=== PATIENT | male | born 1960 | race Caucasian/White ===

== ENCOUNTER 2016-09-02 10:15 | Emergency (ER) | payer OTHER ==
[~2016-09-02] VITALS: Ht 188 cm; Wt 120.0 kg
[~2016-09-02 10:15] MED LIST: ALBI1INJ2 SQ; ATOR1TAB18 PO; EMPA1TAB3 PO; GLYB5TAB3 PO; HYDR25TA5 PO; LISI-515 PO; METF1000 PO; NOVOLOGP2 SQ; OMEG1000; PLAV75TA29 PO; VITA20003 PO
[2016-09-02 10:17] VITALS: BP 205/98; PULSE 72; RESP 20; TEMP 97.1; O2SAT 99
[2016-09-02 10:38] VITALS: RESP 18; O2SAT 99
[2016-09-02] MEDS ORDERED: SODIUM CHLORIDE 0.9% FLUSH 10 ML FLUSH IVF PRN (10:45)
[2016-09-02] MEDS ORDERED: FISHCAP4 PO (10:47)
[2016-09-02] MEDS ORDERED: INSU1INJ14 SQ (10:47)
[2016-09-02] MEDS ORDERED: LACTCAP8 PO (10:47)
[2016-09-02 11:33] LABS: AUTOMATED NEUTROPHIL # 6.6 TH/MM3 (1.8-7.7); BASOPHIL % 0.3 % (0.0-2.0); EOSINOPHIL # 0.2 TH/MM3 (0-0.4); EOSINOPHIL % 2.2 % (0.0-4.0); HEMATOCRIT 41.8 % (39.0-51.0); HEMO FLAGS DIFF FINAL; LYMPH % 15.8 % (9.0-44.0); LYMPHOCYTE # 1.4 TH/MM3 (1.0-4.8); MEAN CORPUSCULAR HEMOGLOBIN 30.2 PG (27.0-34.0); MEAN CORPUSCULAR HGB CONC 32.4 % (32.0-36.0); MONO % 6.4 % (0.0-8.0); NEUT % 75.3 % (16.0-70.0); PLATELET COUNT 185 TH/MM3 (150-450); RED BLOOD COUNT 4.49 MIL/MM3 (4.50-5.90); RED CELL DISTRIBUTION WIDTH 13.6 % (11.6-17.2); WHITE BLOOD COUNT 8.8 TH/MM3 (4.0-11.0)
--- NOTE | 2016-09-02 11:39 | RADRPT ---
EXAM DATE/TIME: 09/02/2016 11:00 [facility] COMPARISON: No previous studies available for comparison. INDICATIONS : Pain from wound on lateral margin of foot. MEDICAL HISTORY : Diabetes mellitus type II. SURGICAL HISTORY : None. ENCOUNTER: Initial ACUITY: 2 days PAIN SCORE: 5/10 LOCATION: Left foot, lateral margin. FINDINGS: Soft tissue swelling with ulceration is identified along the lateral margin of the fifth metatarsopha langeal joint. Underlying bony structures are intact. The right foot is otherwise unremarkable. There are no destructive bone changes or significant arthro matthew. Arterial calcifications noted. CONCLUSION: Soft tissue swelling with ulceration along the lateral aspect of the fifth metatarsophalangeal joint. No findings to suggest osteomyelitis. Intact bony structures. Kermit Jane MD on September 02, 2016 at 11:36 Board Certified Radiologist. This report was verified electronically.
[2016-09-02 11:56] LABS: ANION GAP 8 MEQ/L (5-15); AST (GOT) 16 U/L (15-37); BICARBONATE 20.2 MEQ/L (21.0-32.0); BLOOD UREA NITROGEN 24 MG/DL (7-18); CHLORIDE 109 MEQ/L (98-107); GLOMERULAR FILTRATION RATE 71 ML/MIN (>89); POTASSIUM 4.7 MEQ/L (3.5-5.1); SODIUM (NA) 137 MEQ/L (136-145)
[2016-09-02 11:57] LABS: ALT (GPT) 26 U/L (12-78)
[2016-09-02 12:00] LABS: ALKALINE PHOSPHATASE 77 U/L (45-117); TOTAL BILIRUBIN ADULT 0.4 MG/DL (0.2-1.0)
[2016-09-02] MEDS ORDERED: ACETAMINOPHEN/HYDROcodone 325 MG/5 MG TAB PO ONE (12:00)
[2016-09-02 12:51] VITALS: BP 172/77; PULSE 65; RESP 18; O2SAT 99
[2016-09-02] MEDS ORDERED: GADODIAMIDE PF 287 MG/ML 20 ML VIAL (for RAD MRI) IV ONE (14:26)
[2016-09-02 14:31] VITALS: RESP 18
--- NOTE | 2016-09-02 16:01 | RADRPT ---
EXAM DATE/TIME: 09/02/2016 14:00 [facility] COMPARISON: FOOT RIGHT COMPLETE ([id number]), September 02, 2016, 11:00. INDICATIONS : Infection. CONTRAST: 20 cc Omniscan (gadodiamide) IV MEDICAL HISTORY : Hypertension. Diabetes mellitus type 2. SURGICAL HISTORY : Left bka ENCOUNTER: Initial ACUITY: 1 day PAIN SCORE: 0/10 LOCATION: Right foot TECHNIQUE: Multiplanar, multisequence MRI examination was performed without contrast and after the intravenous a dministration of gadolinium. FINDINGS: There is soft tissue ulceration in the subcutaneous tissues adjacent to the fifth metatarsophala ngeal joint and the marrow appears intact. There is no evidence for osteomyelitis. Musculotendinous s tructures appear intact. CONCLUSION: No evidence of osteomyelitis. Jean Sun MD on September 02, 2016 at 15:56 Board Certified Radiologist. This report was verified electronically.
[2016-09-02] MEDS ORDERED: CLIN1CAP5 PO (16:59)
[2016-09-02] MEDS ORDERED: NORC5TAB PO (17:01)
--- NOTE | 2016-09-02 17:01 | PD ---
HPI Chief Complaint: Skin Problem Time Seen by Provider: 10:24 Travel History International Travel<30 days: No Contact w/Intl Traveler<30days: No Traveled to known affect area: No History of Present Illness HPI Patient is a 56-year-old male presents emergency Department with a right foot ulcer which she just noticed yesterday. He states he is a diabetic and lost his left foot for similar ulcer that gradually grown. He is followed by Dr. Rose seo coordinator in [facility]. Denies any fever denies any systemic symptoms such as fever nausea vomiting chest pain or shortness of breath. States that he also noticed that the redness started spreading over the past day or so over the dorsum of his right foot. PFSH Past Medical History Cancer: No Cardiovascular Problems: Yes High Cholesterol: Yes Chest Pain: No Congestive Heart Failure: No Diabetes: Yes Patient Takes Glucophage: Yes Diminished Hearing: No Endocrine: Yes Gastrointestinal Disorders: No Glaucoma: No Genitourinary: No Hepatitis: No Hiatal Hernia: No Hypertension: Yes Immune Disorder: No Musculoskeletal: No Neurologic: No Psychiatric: No Reproductive: No Respiratory: No Integumentary: Yes (WOUND ON RIGHT HEEL) Sickle Cell Disease: No Thyroid Disease: No Tetanus Vaccination: < 5 Years Past Surgical History AICD: No Eye Surgery: Yes (CATARACT SURGERY) Joint Replacement: No Pacemaker: No Other Surgery: Yes Social History Alcohol Use: Yes (OCCASSIONAL) Tobacco Use: No Substance Use: No Allergies-Medications (Allergen,Severity, Reaction): Coded Allergies: No Known Allergies (Unverified , 09/02/16) Reported Meds & Prescriptions Reported Meds & Active Scripts Active [place] (Hydrocodone-Acetaminophen) 5-325 mg Tab 1 Tab PO Q6H PRN Clindamycin (Clindamycin HCl) 150 Mg Cap 300 Mg PO Q6H 7 Days Reported Probiotic (Lactobacillus Acidophilus) 1 Cap Cap 1 Cap PO DAILY Fish Oil + D3 (Fish Oil-Cholecalciferol) 1,200-1,000 Mg-Unit Cap 1 Cap PO DAILY Tresiba Flextouch Pen Inj (Insulin Degludec Inj) 300 unit/3 ML Pen 1 Units SQ DAILY Vitamin D (Cholecalciferol) 2,000 Unit Tab Evans-3 1000 mg (Evans-3 Fatty Acids) 1 Cap Cap Metformin (Metformin HCl) 1,000 Mg Tab 1,000 Mg PO BIDPC With meals Lisinopril 20 Mg Tab 20 Mg PO DAILY Novolog Inj (Insulin Aspart) 1,000 Unit/10 Ml Vial 0 SQ DIRECTED Sliding Scale as directed. Hydrochlorothiazide 25 Mg Tab 25 Mg PO BID Glyburide 5 Mg Tab 5 Mg PO BID Take with meals at the same time each day Jardiance (Empagliflozin) 25 Mg Tab 25 Mg PO DAILY Atorvastatin (Atorvastatin Calcium) 80 Mg Tab 80 Mg PO HS Tanzeum 4-Pack Inj (Albiglutide) 50 Mg Pfpen 50 Mg SQ Q7D Review of Systems Except as stated in HPI: all other systems reviewed are Neg Physical Exam Narrative GENERAL: Well-developed well-nourished no obvious distress. Quite pleasant. SKIN: There is a right plantar foot ulcer with surrounding cellulitis on both the plantar and dorsal surface, the dorsal surface greater than the plantar surface. No obvious discharge, the ulcer appears fairly superficial but is starting to scab. Ulcerative areas approximately nickel sized. HEAD: Atraumatic. Normocephalic. EYES: Pupils equal and round. No scleral icterus. No injection or drainage. ENT: No nasal bleeding or discharge. Mucous membranes pink and moist. NECK: Trachea midline. No JVD. CARDIOVASCULAR: Regular rate and rhythm. No murmur appreciated. RESPIRATORY: No accessory muscle use. Clear to auscultation. Breath sounds equal bilaterally. GASTROINTESTINAL: Abdomen soft, non-tender, nondistended. Hepatic and splenic margins not palpable. MUSCULOSKELETAL: No obvious deformities. No clubbing. No cyanosis. No edema. BKA and prosthesis on the left. NEUROLOGICAL: Awake and alert. No obvious cranial nerve deficits. Motor grossly within normal limits. Normal speech. PSYCHIATRIC: Appropriate mood and affect; insight and judgment normal. Data Data Last Documented VS Vital Signs Date Time Temp Pulse Resp B/P Pulse Ox O2 Delivery O2 Flow Rate FiO2 09/02/16 14:31 18 09/02/16 12:51 65 172/77 99 Room Air 09/02/16 10:17 97.1 Orders Complete Blood Count With Diff (09/02/16 10:32) Comprehensive Metabolic Panel (09/02/16 10:32) Westergren Sedimentation Rate (09/02/16 10:32) C-Reactive Protein (Crp) (09/02/16 10:32) Ecg Monitoring (09/02/16 10:32) Iv Access Insert/Monitor (09/02/16 10:32) Oximetry (09/02/16 10:32) Sodium Chloride 0.9% Flush (Ns Flush) (09/02/16 10:45) Foot, Complete (Aen1efx) (09/02/16 ) Mri Foot W&W/O Contrast (09/02/16 ) Acetamin-Hydrocod 325-5 Mg ([place] 5-325 (09/02/16 12:00) Gadodiamide Pf Inj (Omniscan Pf Inj) (09/02/16 14:26) Clindamycin (Cleocin) (09/02/16 17:15) Oxycodone-Acetamin 5-325 Mg (Percocet (09/02/16 17:45) Labs Laboratory Tests Test 09/02/16 10:45 White Blood Count 8.8 TH/MM3 Red Blood Count 4.49 MIL/MM3 Hemoglobin 13.5 GM/DL Hematocrit 41.8 % Mean Corpuscular Volume 93.0 FL Mean Corpuscular Hemoglobin 30.2 PG Mean Corpuscular Hemoglobin 32.4 % Concent Red Cell Distribution Width 13.6 % Platelet Count 185 TH/MM3 Mean Platelet Volume 9.4 FL Neutrophils (%) (Auto) 75.3 % Lymphocytes (%) (Auto) 15.8 % Monocytes (%) (Auto) 6.4 % Eosinophils (%) (Auto) 2.2 % Basophils (%) (Auto) 0.3 % Neutrophils # (Auto) 6.6 TH/MM3 Lymphocytes # (Auto) 1.4 TH/MM3 Monocytes # (Auto) 0.6 TH/MM3 Eosinophils # (Auto) 0.2 TH/MM3 Basophils # (Auto) 0.0 TH/MM3 CBC Comment DIFF FINAL Differential Comment Erythrocyte Sedimentation Rate 32 mm/hr Sodium Level 137 MEQ/L Potassium Level 4.7 MEQ/L Chloride Level 109 MEQ/L Carbon Dioxide Level 20.2 MEQ/L Anion Gap 8 MEQ/L Blood Urea Nitrogen 24 MG/DL Creatinine 1.07 MG/DL Estimat Glomerular Filtration 71 ML/MIN Rate Random Glucose 190 MG/DL Calcium Level 8.5 MG/DL Total Bilirubin 0.4 MG/DL Aspartate Amino Transf 16 U/L (AST/SGOT) Alanine Aminotransferase 26 U/L (ALT/SGPT) Alkaline Phosphatase 77 U/L C-Reactive Protein 2.90 MG/DL Total Protein 7.2 GM/DL Albumin 3.4 GM/DL MDM Medical Decision Making Medical Screen Exam Complete: Yes Emergency Medical Condition: Yes Differential Diagnosis Diabetic foot ulcer, cellulitis, osteomyelitis Narrative Course Patient roomed in emergency department, labs show minimally elevated CRP, MRI has been ordered, shows no evidence of osteomyelitis. The patient is certainly not septic. Patient reassured and recommended antibiotics. Bactrim interacts with his blood pressure medication causing hyperkalemia, we'll place on clindamycin for now. Discussed need follow-up with Dr. Rose and return to ED criteria. Diagnosis Primary Impression: Right foot ulcer Med/Other Pt SpecificInfo: Prescription(s) given Scripts Hydrocodone-Acetaminophen ([place])5-325 mg Tab1 Tab PO Q6H PRN (PAIN) #12 TAB Ref 0 Prov:Otis Knutson MD 09/02/16 Clindamycin 150 Mg [id number] Mg PO Q6H 7 Days Ref 0 Prov:Otis Knutson MD 09/02/16 Disposition: 01 DISCHARGE HOME Condition: Stable Otis Knutson MD Sep 02, 2016 17:01
[2016-09-02] MEDS ORDERED: CLINDAMYCIN 150 MG CAP PO ONE (17:15)
[2016-09-02] MEDS ORDERED: oxyCODONE/ACETAMINOPHEN 5 MG/325 MG TAB PO ONE (17:45)
== END 2016-09-02 18:43 | disposition home or self-care (01) ==
LOC: NEPE 10:15
DX: E11.621 Type 2 diabetes mellitus with foot ulcer (principal); L03.115 Cellulitis of right lower limb; E87.5 Hyperkalemia; E78.00 Pure hypercholesterolemia, unspecified; I10 Essential (primary) hypertension; Z79.4 Long term (current) use of insulin; Z79.899 Other long term (current) drug therapy
CPT/HCPCS: 73630; 73720; 80053; 85025; 85652; 86140; 99285; A9579

== ENCOUNTER 2016-09-12 09:28 | Inpatient (IN) | payer OTHER ==
[~2016-09-12] VITALS: Ht 188 cm; Wt 121.3 kg
[~2016-09-12 09:28] MED LIST changes: +CLIN1CAP5 PO; +FISHCAP4 PO; +INSU1INJ14 SQ; +LACTCAP8 PO; +NORC5TAB PO; -PLAV75TA29 PO
[2016-09-12 09:31] VITALS: BP 234/104; PULSE 82; RESP 20; O2SAT 96
[2016-09-12 11:33] VITALS: BP 210/85; PULSE 86; RESP 18; TEMP 97.8; O2SAT 98
[2016-09-12] MEDS ORDERED: SODIUM CHLOR 0.9% 1000 ML INJ 1,000 ML IV SCH ×2 (11:41→12:32)
--- NOTE | 2016-09-12 11:44 | PD ---
HPI Chief Complaint: Pain: Acute or Chronic Time Seen by Provider: 11:45 Travel History International Travel<30 days: No Contact w/Intl Traveler<30days: No Traveled to known affect area: No History of Present Illness HPI This is a 56-year-old male with history of type 2 diabetes, peripheral vascular disease, hypertension, hyperlipidemia, who presents for evaluation of an ulcer on the right foot. Started 1-2 weeks ago. He developed an ulceration on the plantar lateral aspect of the right foot which has been painful. He was seen here for evaluation of this issue in September 02. He had an MRI of the foot which revealed no evidence of osteomyelitis. He was discharged with a prescription for clindamycin which she has been using as prescribed. He follow-up with his agency service representative Dr. Rose who started him on Cipro yesterday. He was reevaluated today by Dr. Rose and sent here for further evaluation/admission. The patient endorses pain, aching, worse with walking. Denies any fevers or chills. He has no other complaints at this time. PFSH Past Medical History Cancer: No Cardiovascular Problems: Yes High Cholesterol: Yes Chest Pain: No Congestive Heart Failure: No Diabetes: Yes Patient Takes Glucophage: Yes Diminished Hearing: No Endocrine: Yes Gastrointestinal Disorders: No Glaucoma: No Genitourinary: No Hepatitis: No Hiatal Hernia: No Hypertension: Yes Immune Disorder: No Musculoskeletal: No Neurologic: No Psychiatric: No Reproductive: No Respiratory: No Integumentary: Yes (WOUND ON RIGHT HEEL) Sickle Cell Disease: No Thyroid Disease: No Past Surgical History AICD: No Eye Surgery: Yes (CATARACT SURGERY) Joint Replacement: No Pacemaker: No Other Surgery: Yes Social History Alcohol Use: Yes (OCCASSIONAL) Tobacco Use: No Substance Use: No Allergies-Medications (Allergen,Severity, Reaction): Coded Allergies: No Known Allergies (Unverified , 09/02/16) Reported Meds & Prescriptions Reported Meds & Active Scripts Active Reported Cipro (Ciprofloxacin HCl) 500 Mg Tab 500 Mg PO BID 7 Days Probiotic (Lactobacillus Acidophilus) 1 Cap Cap 1 Cap PO DAILY Fish Oil + D3 (Fish Oil-Cholecalciferol) 1,200-1,000 Mg-Unit Cap 1 Cap PO DAILY Tresiba Flextouch Pen Inj (Insulin Degludec Inj) 300 unit/3 ML Pen 60 Units SQ DAILY Vitamin D (Cholecalciferol) 2,000 Unit Tab 2,000 Units PO DAILY Metformin (Metformin HCl) 1,000 Mg Tab 1,000 Mg PO BIDPC With meals Lisinopril 20 Mg Tab 20 Mg PO DAILY Novolog Inj (Insulin Aspart) 1,000 Unit/10 Ml Vial 0 SQ DIRECTED Sliding Scale as directed. Hydrochlorothiazide 25 Mg Tab 25 Mg PO BID Glyburide 5 Mg Tab 5 Mg PO BID Take with meals at the same time each day Jardiance (Empagliflozin) 25 Mg Tab 25 Mg PO DAILY Atorvastatin (Atorvastatin Calcium) 80 Mg Tab 80 Mg PO HS Tanzeum 4-Pack Inj (Albiglutide) 50 Mg Pfpen 50 Mg SQ Q7D Review of Systems Except as stated in HPI: all other systems reviewed are Neg Physical Exam Narrative GENERAL: Well-developed well-nourished male in no acute distress SKIN: Warm and dry. Examination of the right foot reveals a 3-4 cm circular ulceration on the lateral plantar aspect of the right foot. There is some surrounding erythema. There is no foul-smelling drainage or proximal streaking. HEAD: Atraumatic. Normocephalic. EYES: Pupils equal and round. No scleral icterus. No injection or drainage. ENT: No nasal bleeding or discharge. Mucous membranes pink and moist. NECK: Trachea midline. No JVD. CARDIOVASCULAR: Regular rate and rhythm. No murmur appreciated. RESPIRATORY: No accessory muscle use. Clear to auscultation. Breath sounds equal bilaterally. GASTROINTESTINAL: Abdomen soft, non-tender, nondistended. Hepatic and splenic margins not palpable. MUSCULOSKELETAL: Skin as noted above. There is no lower extremity edema. Left leg indication. Extremities: The right dorsalis pulses faintly palpable. The dorsalis pedis and posterior tibial pulses are easily dopplerable. The right foot is warm. There is no inguinal lymphadenopathy. NEUROLOGICAL: Awake and alert. No obvious cranial nerve deficits. Motor grossly within normal limits. Normal speech. PSYCHIATRIC: Appropriate mood and affect; insight and judgment normal. Data Data Last Documented VS Vital Signs Date Time Temp Pulse Resp B/P Pulse Ox O2 Delivery O2 Flow Rate FiO2 09/12/16 12:10 72 18 169/76 98 Room Air 09/12/16 11:33 97.8 Orders Complete Blood Count With Diff (09/12/16 11:41) Comprehensive Metabolic Panel (09/12/16 11:41) Lactic Acid Sepsis Protocol (09/12/16 11:41) Blood Culture (09/12/16 11:41) Wound Culture And Gram Stain (09/12/16 11:41) Blood Glucose (09/12/16 11:41) Ecg Monitoring (09/12/16 11:41) Iv Access Insert/Monitor (09/12/16 11:41) Oximetry (09/12/16 11:41) Oxygen Administration (09/12/16 11:41) Sodium Chlor 0.9% 1000 Ml Inj (Ns 1000 M (09/12/16 11:41) Labetalol Inj (Trandate Inj) (09/12/16 11:45) Westergren Sedimentation Rate (09/12/16 11:50) C-Reactive Protein (Crp) (09/12/16 11:50) Ceftriaxone Inj (Rocephin Inj) (09/12/16 12:15) Morphine Inj (Morphine Inj) (09/12/16 12:15) Ondansetron Inj (Zofran Inj) (09/12/16 12:15) Sodium Chlor 0.9% 1000 Ml Inj (Ns 1000 M (09/12/16 12:32) Mri Foot W&W/O Contrast (09/12/16 ) Admit Order (Ed Use Only) (09/12/16 13:00) Consult Vascular Surgery (09/12/16 ) Labs Laboratory Tests Test 09/12/16 11:45 White Blood Count 12.0 TH/MM3 Red Blood Count 4.66 MIL/MM3 Hemoglobin 14.0 GM/DL Hematocrit 42.9 % Mean Corpuscular Volume 91.9 FL Mean Corpuscular Hemoglobin 29.9 PG Mean Corpuscular Hemoglobin 32.6 % Concent Red Cell Distribution Width 13.5 % Platelet Count 276 TH/MM3 Mean Platelet Volume 8.8 FL Neutrophils (%) (Auto) 77.1 % Lymphocytes (%) (Auto) 14.8 % Monocytes (%) (Auto) 6.5 % Eosinophils (%) (Auto) 1.2 % Basophils (%) (Auto) 0.4 % Neutrophils # (Auto) 9.2 TH/MM3 Lymphocytes # (Auto) 1.8 TH/MM3 Monocytes # (Auto) 0.8 TH/MM3 Eosinophils # (Auto) 0.1 TH/MM3 Basophils # (Auto) 0.1 TH/MM3 CBC Comment DIFF FINAL Differential Comment Sodium Level 134 MEQ/L Potassium Level 5.2 MEQ/L Chloride Level 104 MEQ/L Carbon Dioxide Level 21.5 MEQ/L Anion Gap 9 MEQ/L Blood Urea Nitrogen 31 MG/DL Creatinine 1.23 MG/DL Estimat Glomerular Filtration 61 ML/MIN Rate Random Glucose 116 MG/DL Lactic Acid Level 2.1 mmol/L Calcium Level 9.8 MG/DL Total Bilirubin 0.4 MG/DL Aspartate Amino Transf 19 U/L (AST/SGOT) Alanine Aminotransferase 25 U/L (ALT/SGPT) Alkaline Phosphatase 82 U/L C-Reactive Protein 4.40 MG/DL Total Protein 8.0 GM/DL Albumin 3.5 GM/DL [facility] Medical Decision Making Medical Screen Exam Complete: Yes Emergency Medical Condition: Yes Medical Record Reviewed: Yes Differential Diagnosis Diabetic foot ulcer, peripheral vascular disease, cellulitis, osteomyelitis, sepsis Narrative Course This is a 56 year old male history of peripheral vascular disease, diabetes who developed a foot ulcer which has worsened despite outpatient oral antibiotic therapy. He had an MRI of the right foot performed on September 02 which was negative for osteomyelitis. He has followed up with Dr. Rose who referred him here today for admission. On examination the patient has a foot ulcer on the right foot with some surrounding cellulitic changes. He has a faintly palpable dorsalis pedis pulse as well as a dopplerable posterior tibial pulse. I discussed with Dr. Rose who would like the patient to be admitted for IV antibiotic therapy. He recommends a repeat MRI of the foot as well as vascular surgery consultspecifically he discussed with Dr. Cano who The patient is known to and he will be consulting. Dr. Rose will also faxed over the culture and sensitivity report. He would like Dr. Grimes to be consulting on the patient as well. Plan is for basic lab work, ECG monitoring, blood cultures, repeat wound culture will be performed. His blood pressure was initially quite elevated in triage but improved to 163 systolic. Initially labetalol was ordered but this has been held because of the spontaneous improvement in blood pressure. The culture and sensitivity report reveals Enterobacter cloecae susceptible to ciprofloxacin, ceftriaxone, ertapenem, gentamicin, imipenem, levofloxacin, piperacillin, tetracycline, tobramycin, trimethoprim/sulfa and resistant to Augmentin, cefazolin, cefuroxime. Diagnosis Primary Impression: Right foot ulcer Qualified Code: L97.519 - Right foot ulcer, with unspecified severity Additional Impression: Peripheral vascular disease Admitting Information Admitting Physician Requests: Admit Jorge Arroyo Sep 12, 2016 11:44
[2016-09-12] MEDS ORDERED: LABETALOL HCL 100 MG/20 ML VIAL IV PUSH ONE (11:45)
[2016-09-12 12:10] VITALS: BP 169/76; PULSE 72; RESP 18; O2SAT 98
[2016-09-12 12:12] LABS: AUTOMATED NEUTROPHIL # 9.2 TH/MM3 (1.8-7.7); BASOPHIL # 0.1 TH/MM3 (0-0.2); BASOPHIL % 0.4 % (0.0-2.0); EOSINOPHIL # 0.1 TH/MM3 (0-0.4); EOSINOPHIL % 1.2 % (0.0-4.0); HEMATOCRIT 42.9 % (39.0-51.0); HEMO FLAGS DIFF FINAL; LYMPH % 14.8 % (9.0-44.0); LYMPHOCYTE # 1.8 TH/MM3 (1.0-4.8); MEAN CELL VOLUME 91.9 FL (80.0-100.0); MEAN CORPUSCULAR HEMOGLOBIN 29.9 PG (27.0-34.0); MEAN CORPUSCULAR HGB CONC 32.6 % (32.0-36.0); MONO % 6.5 % (0.0-8.0); NEUT % 77.1 % (16.0-70.0); PLATELET COUNT 276 TH/MM3 (150-450); RED BLOOD COUNT 4.66 MIL/MM3 (4.50-5.90); RED CELL DISTRIBUTION WIDTH 13.5 % (11.6-17.2)
[2016-09-12] MEDS ORDERED: MORPHINE SULFATE 4 MG/ML INJ IV PUSH ONE (12:15)
[2016-09-12] MEDS ORDERED: ONDANSETRON HCL 4 MG/2 ML VIAL IV PUSH ONE (12:15)
[2016-09-12] MEDS ORDERED: cefTRIAXone INJ 2,000 MG in SODIUM CHLORIDE 0.9% INJ 100 ML IV ONE (12:15)
[2016-09-12 12:28] LABS: ANION GAP 9 MEQ/L (5-15); AST (GOT) 19 U/L (15-37); BICARBONATE 21.5 MEQ/L (21.0-32.0); BLOOD UREA NITROGEN 31 MG/DL (7-18); CHLORIDE 104 MEQ/L (98-107); GLOMERULAR FILTRATION RATE 61 ML/MIN (>89); POTASSIUM 5.2 MEQ/L (3.5-5.1); SODIUM (NA) 134 MEQ/L (136-145)
[2016-09-12 12:32] LABS: ALKALINE PHOSPHATASE 82 U/L (45-117); ALT (GPT) 25 U/L (12-78); TOTAL BILIRUBIN ADULT 0.4 MG/DL (0.2-1.0)
[2016-09-12] MEDS ORDERED: CIPR-9 PO (12:33)
[2016-09-12 14:01] LABS: LACTIC ACID GHOST NOT REPORTABLE
[2016-09-12 15:00] VITALS: BP 168/88; PULSE 86; RESP 18; O2SAT 98
[2016-09-12] MEDS ORDERED: ACETAMINOPHEN/HYDROcodone 325 MG/5 MG TAB PO PRN (15:30)
[2016-09-12] MEDS ORDERED: cloNIDine HCL 0.1 MG TAB PO PRN (15:30)
[2016-09-12] MEDS ORDERED: IOHEXOL 350 MG/ML 10 ML VIAL (for RAD DIAG) IV ONE (15:34)
[2016-09-12] MEDS ORDERED: INSULIN ASPART SUPPLEMENTAL SCALE SQ SCH (16:00)
[2016-09-12] MEDS ORDERED: GADODIAMIDE PF 287 MG/ML 5 ML VIAL (for RAD MRI) IV ONE (16:22)
[2016-09-12 16:45] VITALS: BP 177/88; PULSE 75; RESP 18; TEMP 95.9; O2SAT 98
[2016-09-12] MEDS: ACETAMINOPHEN/HYDROcodone 325 MG/5 MG TAB PO PRN ×2 (16:48→21:53)
--- NOTE | 2016-09-12 16:56 | HHI.HP ---
HPI Service [facility] Hospitalists Primary Care Physician Unknown Admission Diagnosis right foot ulcer, cellulitis, peripheral vascular disease Travel History International Travel<30 Days: No Contact w/Intl Traveler <30 Da: No Traveled to Known Affected Are: No History of Present Illness Pt is 56 yo with dm 2 and left bka due to pad. About 2 weeks ago pt says he worse new shoes and developed some irritation of the the right foot lat/plantar area. Seen in ED and 09/01 mri neg for osteo and given clinda. seen by podiatry and ultimately the ulceration/ swelling progressed. podiatry swabbed the area and enterobacter grew from the cx. Sent back to ED for further evaluation today by podiatry. consultation with vascular and sent for cta runoff and mri. rocephin given in ED. Review of Systems Other worsening right foot ulcer Past Family Social History Past Medical History left bka pad lower ext. dm 2 htn cataract Reported Medications Cipro (Ciprofloxacin HCl) 500 Mg Tab 500 Mg PO BID 7 Days Probiotic (Lactobacillus Acidophilus) 1 Cap Cap 1 Cap PO DAILY Fish Oil + D3 (Fish Oil-Cholecalciferol) 1,200-1,000 Mg-Unit Cap 1 Cap PO DAILY Tresiba Flextouch Pen Inj (Insulin Degludec Inj) 300 unit/3 ML Pen 60 Units SQ DAILY Vitamin D (Cholecalciferol) 2,000 Unit Tab 2,000 Units PO DAILY Metformin (Metformin HCl) 1,000 Mg Tab 1,000 Mg PO BIDPC With meals Lisinopril 20 Mg Tab 20 Mg PO bid Novolog Inj (Insulin Aspart) 1,000 Unit/10 Ml Vial 0 SQ DIRECTED Sliding Scale as directed. Hydrochlorothiazide 25 Mg Tab 25 Mg PO daily Glyburide 5 Mg Tab 5 Mg PO BID Take with meals at the same time each day Jardiance (Empagliflozin) 25 Mg Tab 25 Mg PO DAILY Atorvastatin (Atorvastatin Calcium) 80 Mg Tab 80 Mg PO HS Tanzeum 4-Pack Inj (Albiglutide) 50 Mg Pfpen 50 Mg SQ Q7D Allergies: Coded Allergies: No Known Allergies (Unverified , 09/02/16) Family History nc Social History no sig etoh or tob Physical Exam Vital Signs heart reg lung ctda abd s/nt ext right plantar ulceration. black center with no drainage. swelling of 5th toe and mild redness. quarter size. Vital Signs Date Time Temp Pulse Resp B/P Pulse Ox O2 Delivery O2 Flow Rate FiO2 09/12/16 15:00 86 18 168/88 98 Room Air 09/12/16 12:10 72 18 169/76 98 Room Air 09/12/16 11:33 97.8 86 18 210/85 98 Room Air 09/12/16 11:33 86 18 09/12/16 09:31 82 20 234/104 96 Room Air Laboratory Laboratory Tests Test 09/12/16 09/12/16 09/12/16 11:45 13:40 14:00 White Blood Count 12.0 Red Blood Count 4.66 Hemoglobin 14.0 Hematocrit 42.9 Mean Corpuscular Volume 91.9 Mean Corpuscular Hemoglobin 29.9 Mean Corpuscular Hemoglobin 32.6 Concent Red Cell Distribution Width 13.5 Platelet Count 276 Mean Platelet Volume 8.8 Neutrophils (%) (Auto) 77.1 Lymphocytes (%) (Auto) 14.8 Monocytes (%) (Auto) 6.5 Eosinophils (%) (Auto) 1.2 Basophils (%) (Auto) 0.4 Neutrophils # (Auto) 9.2 Lymphocytes # (Auto) 1.8 Monocytes # (Auto) 0.8 Eosinophils # (Auto) 0.1 Basophils # (Auto) 0.1 CBC Comment DIFF FINAL Differential Comment Sodium Level 134 Potassium Level 5.2 Chloride Level 104 Carbon Dioxide Level 21.5 Anion Gap 9 Blood Urea Nitrogen 31 Creatinine 1.23 Estimat Glomerular Filtration 61 Rate Random Glucose 116 Lactic Acid Level 2.1 1.5 Calcium Level 9.8 Total Bilirubin 0.4 Aspartate Amino Transf 19 (AST/SGOT) Alanine Aminotransferase 25 (ALT/SGPT) Alkaline Phosphatase 82 C-Reactive Protein 4.40 Total Protein 8.0 Albumin 3.5 Erythrocyte Sedimentation Rate 63 Date/Time Procedure Status Source Growth 09/12/16 11:50 Aerobic Blood Culture Received Blood Peripheral Pending 09/12/16 11:50 Anaerobic Blood Culture Received Blood Peripheral Pending 09/12/16 11:45 Gram Stain Received Wound Foot Pending 09/12/16 11:45 Wound Culture Received Wound Foot Pending Result Diagram: 09/12/16 1145 09/12/16 1145 Assessment and Plan Problem List: (1) Right foot ulcer Status: Acute Plan: Pt is 56 yo with dm and pad. right foot ulceration/swelling plantar and right 5th digit mri foot to eval for osteo vascular consult with cta runoff ordered to eval for ischemic etiology for ulceration. cont abx per prior cx podiatry consulted for wound care. cont basal insulin and ssi. titrate as needed. (2) S/P BKA (below knee amputation) Status: Chronic (3) DM (diabetes mellitus) Status: Chronic (4) HTN (hypertension) Status: Chronic Physician Certification 2 Midnight Certification Type: Admission for Inpatient Services Order for Inpatient Services 3The services are ordered in accordance with Medicare regulations or non- Medicare payer requirements, as applicable. In the case of services not specified as inpatient-only, they are appropriately provided as inpatient services in accordance with the 2-midnight benchmark. Estimated LOS (days): 3 3 days is the estimated time the patient will need to remain in the hospital, assuming treatment plan goals are met and no additional complications. Post-Hospital Plan: Home Problem Qualifiers (1) Right foot ulcer: Qualified Code: L97.519 - Right foot ulcer, with unspecified severity Abhinav Coleman MD Sep 12, 2016 16:56
--- NOTE | 2016-09-12 17:23 | RADRPT ---
EXAM DATE/TIME: 09/12/2016 15:53 [facility] COMPARISON: MRI FOOT RIGHT W & W/O CONTRAST, September 02, 2016, 14:00. INDICATIONS : Osteomyelitis. Ulcer on lateral aspect of right foot for 10 days. CONTRAST: 24 cc Omniscan (gadodiamide) IV MEDICAL HISTORY : Hypertension. Diabetes mellitus type 2. SURGICAL HISTORY : Left BKA. ENCOUNTER: Subsequent ACUITY: 2 weeks PAIN SCORE: 3/10 LOCATION: Right foot. TECHNIQUE: Multiplanar, multisequence MRI examination was performed without contrast and after the intravenous a dministration of gadolinium. FINDINGS: There is diffuse cellulitis and soft tissue enhancement of the right fifth digit. There is also mild enhancement of the right fifth phalanges and the head of the right fifth metatarsal which raises the possibility of osteomyelitis of these bones. No deep soft tissue abscess is noted. Tagged white bl ood cell scan may be helpful for conformation of osteomyelitis if clinically indicated. CONCLUSION: Diffuse cellulitis involving the right fifth toe as well as some edema and enhancement of the head of the right fifth metatarsal as well as the right fifth phalanges raising the possibility of osteomyel itis. Tagged white blood cell scan may be helpful for confirmation of osteomyelitis if clinically in dicated. No deep soft tissue abscess is noted. Otis Pryor MD on September 12, 2016 at 17:07 Board Certified Radiologist. This report was verified electronically.
--- NOTE | 2016-09-12 17:32 | RADRPT ---
EXAM DATE/TIME: 09/12/2016 00:00 [facility] COMPARISON: No previous studies available for comparison. INDICATIONS : PVD, Right Foot Cellulitis/Ulcer TECHNIQUE: Four-cuff ankle and brachial pressures were obtained. Pulse cuff waveform tracings of the ankles were recorded, and ankle-brachial indices were calculated. PRESSURES (mmHg): Brachial (arm): Right 185 Left IV Site Ankle: Right CNO [place]ER[place]: Right CNO TBI: Right 0.55 PULSED CUFF WAVEFORMS: Demonstrate normal amplitude bilaterally. CONCLUSION: Noncompressibility of vessels at the right ankle, likely indicative of vascular calcification. Satisf actory preservation of distal waveforms suggests relatively low likelihood of severe occlusive PAD Sampson Arias MD on September 12, 2016 at 17:29 Board Certified Radiologist. This report was verified electronically.
[2016-09-12] MEDS: INSULIN ASPART SUPPLEMENTAL SCALE SQ SCH (17:41)
--- NOTE | 2016-09-12 17:48 | RADRPT ---
EXAM DATE/TIME: 09/12/2016 15:24 [facility] COMPARISON: CTA RUNOFF W 3D RECON, September 01, 2013, 12:13. [facility] ANKLE BRACHIAL INDEX, September 12, 2016, 0:00. INDICATIONS : Right foot ulcer. IV CONTRAST: 80 cc Omnipaque 350 (iohexol) IV RADIATION DOSE: 11.63 CTDIvol (mGy) MEDICAL HISTORY : Peripheral vascular disease. Hypertension. Diabetes mellitus type 2. SURGICAL HISTORY : Left leg amputation. ENCOUNTER: Initial ACUITY: 1 day PAIN SCALE: 4/10 LOCATION: Right lower extremity. TECHNIQUE: Volumetric scanning was performed using a multi-row detector CT scanner. The data was post processed with a variety of visualization algorithms including full volume maximum intensity projection, multi -planar sliding thin slab reformation, curved planar reformation, and surface rendering techniques. Using automated exposure control and adjustment of the mA and/or kV according to patient size, radiat ion dose was kept as low as reasonably achievable to obtain optimal diagnostic quality images. DICO M format image data is available electronically for review and comparison. FINDINGS: AORTA: Mild to moderate atherosclerotic calcifications of the infrarenal abdominal aorta without significant flow-limiting stenosis or aneurysm. VISCERAL ARTERIES: Patent right renal artery. Mild to moderate stenosis of the left renal artery origin secondary to mix ed plaque. Heavily calcified plaque at the origin of the celiac, SMA and TAMIA. There is resultant mode rate to severe stenosis of the celiac origin progressed from mild stenosis on prior exam. There is in terval moderate stenosis of the SMA. The TAMIA is mildly stenosed at the origin. RIGHT LEG: INFLOW: Mild stenosis of the proximal common iliac artery secondary to eccentric calcified plaque. Internal i liac artery is patent. External iliac artery is patent. Mild stenosis of the distal common femoral ar dinorah secondary to eccentric noncalcified plaque. OUTFLOW: Profunda is patent. SFA is diffusely calcified with tandem taku-cw-fkkvtqsn stenoses distally. Modera te long segment stenosis of the above-knee popliteal artery. Tandem moderate stenosis of the distal b elow-knee popliteal artery. RUNOFF: Runoff vessels are diffusely calcified which limits evaluation. There is moderate severe stenosis inv olving the origin of all 3 vessels with scattered areas of moderate to severe stenoses particularly i n the mid to distal calf and most prominently involving the posterior tibial artery. LEFT LEG: INFLOW: No iliac inflow stenosis. Eccentric mixed plaque in the distal common femoral artery at the bifurcati on with result in mild to moderate stenosis. OUTFLOW: Profunda is patent. Moderate stenosis at the SFA origin secondary to eccentric calcified plaque exten ding from the distal common femoral artery. SFA is diffusely calcified most prominently in the distal thigh with associated tandem moderate to severe stenoses. Long segment moderate to severe stenosis o f the popliteal artery at the level of the knee secondary to mixed eccentric plaque. RUNOFF: Interval below knee amputation. GENERAL FINDINGS: Visualized lung bases demonstrate mild atelectasis. Evaluation of the abdominal viscera is limited du e to early arterial phase technique. Liver, spleen, adrenal glands, and pancreas unremarkable. Gallbl adder is mildly distended with probably small gallstone and sludge. There is re demonstration of prom inent indeterminate perinephric stranding and a newly masslike prominence which is likely unchanged s steve prior exam. Kidneys otherwise demonstrate symmetrical enhancement are low there are areas of sca rring particularly in the right mid kidney. No evidence for hydronephrosis. Punctate calyceal calcifi cations are noted in the superior poles bilaterally. There is no significant free fluid or drainable fluid collection in the abdomen. Bowel appears grossly unremarkable. Bladder is distended and appears unremarkable. Prostate is grossly unremarkable. There are no abnorma l lytic or blastic bony lesions. CONCLUSION: 1. No significant iliac occlusive disease or inflow stenosis. 2. Progressive outflow disease with tandem bsal-hd-hsmsuokw stenoses of the distal SFA and popliteal arteries on the right and continued diffuse runoff disease. Patient may benefit from limb salvage out flow intervention. 3. Diffusely diseased 3 vessel runoff on the right. Interval left below-knee amputation. 4. Progressive visceral artery stenoses as above. 5. Redemonstration of prominent bilateral perinephric stranding and intermediate density masslike col lections the right skin unchanged from August [address] scan. Differential considerations include inflamm atory change/collections versus renal lymphoma although unlikely given interval stability. Herbert Das MD on September 12, 2016 at 17:18 Board Certified Radiologist. This report was verified electronically.
[2016-09-12] MEDS ORDERED: ONDANSETRON HCL 4 MG/2 ML VIAL IV PRN (18:00)
[2016-09-12] MEDS ORDERED: ACETAMINOPHEN 325 MG TAB PO PRN (18:00)
[2016-09-12 20:00] VITALS: BP 139/67; PULSE 61; RESP 18; TEMP 97.6; O2SAT 96
--- NOTE | 2016-09-12 20:16 | PD.VS.CON ---
History of Present Illness Chief Complaint: Right foot wound from work boots for a few weeks. Consult Requested by: History of Present Illness This is a 56 yr old white male with hx of PAD, diabetes and HTN with a previous left BKA for wet gangrene. 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 Past/Family/Social History Past Medical History HTN, Hyperlipidemia DM Past Surgical History left BKA Home Medications Active Scripts Hydrocodone-Acetaminophen ([place])5-325 mg Tab1 Tab PO Q6H PRN (PAIN) #12 TAB Ref 0 Prov:Otis Knutson MD 09/02/16 Reported Medications Ciprofloxacin (Cipro)500 Mg Kqz123 Mg PO BID 7 Days Ref 0 09/12/16 Lactobacillus Acidophilus (Probiotic)1 Cap Cap1 Cap PO DAILY #90 CAP Ref 0 09/02/16 Fish Oil-Cholecalciferol (Fish Oil + D3)1,200-1,000 Mg-Unit Cap1 Cap PO DAILY # 30 CAP Ref 0 09/02/16 Insulin Degludec Inj (Tresiba Flextouch Pen Inj)300 unit/3 ML Pen60 Units SQ DAILY #15 ML Ref 0 09/02/16 Cholecalciferol (Vitamin D)2,000 Unit Tab2,000 Units PO DAILY 02/17/16 Metformin 1,000 Mg Tab1,000 Mg PO BIDPC #60 TAB Ref 0 With meals 02/17/16 Lisinopril 20 Mg Tab20 Mg PO BID #30 TAB Ref 0 02/17/16 Insulin Aspart Inj (Novolog Inj)1,000 Unit/10 Ml Vial SQ DIRECTED #10 ML Ref 0 Sliding Scale as directed. 02/17/16 Hydrochlorothiazide 25 Mg Tab25 Mg PO DAILY #30 TAB 02/17/16 Glyburide 5 Mg Tab5 Mg PO BID #60 TAB Ref 0 Take with meals at the same time each day 02/17/16 Empagliflozin (Jardiance)25 Mg Tab25 Mg PO DAILY #30 TAB Ref 0 02/17/16 Atorvastatin 80 Mg Tab80 Mg PO HS #30 TAB Ref 0 02/17/16 Albiglutide 4-Pack Inj (Tanzeum 4-Pack Inj)50 Mg Pfpen50 Mg SQ Q7D #4 PEN 02/17/16 Discontinued Reported Medications [place]-3 Fatty Acids ([place]-3 1000 mg)1 Cap Cap 02/17/16 Discontinued Scripts Clindamycin 150 Mg Dea928 Mg PO Q6H 7 Days Ref 0 Prov:Otis Knutson MD 09/02/16 Coded Allergies: No Known Allergies (Unverified , 09/02/16) Physical Exam Vitals/I&O Date Time Temp Pulse Resp B/P Pulse Ox O2 Delivery O2 Flow Rate FiO2 09/12/16 17:42 18 09/12/16 16:45 95.9 75 18 177/88 98 09/12/16 15:00 86 18 168/88 98 Room Air 09/12/16 12:10 72 18 169/76 98 Room Air 09/12/16 11:33 97.8 86 18 210/85 98 Room Air 09/12/16 11:33 86 18 09/12/16 09:31 82 20 234/104 96 Room Air Neuro: A&Ox3 Neck: No carotid bruits Heart: regular Lungs: CTA bilat Abdomen: soft and non-distended. Vascular: Palpable femoral and DP on right lower extremity. Right latera 5th MT eschar with surrounding erythema. NO malodor or purulence. Laboratory Tests Test 09/12/16 09/12/16 09/12/16 09/12/16 11:45 13:40 14:00 17:32 White Blood Count 12.0 Red Blood Count 4.66 Hemoglobin 14.0 Hematocrit 42.9 Mean Corpuscular Volume 91.9 Mean Corpuscular Hemoglobin 29.9 Mean Corpuscular Hemoglobin 32.6 Concent Red Cell Distribution Width 13.5 Platelet Count 276 Mean Platelet Volume 8.8 Neutrophils (%) (Auto) 77.1 Lymphocytes (%) (Auto) 14.8 Monocytes (%) (Auto) 6.5 Eosinophils (%) (Auto) 1.2 Basophils (%) (Auto) 0.4 Neutrophils # (Auto) 9.2 Lymphocytes # (Auto) 1.8 Monocytes # (Auto) 0.8 Eosinophils # (Auto) 0.1 Basophils # (Auto) 0.1 CBC Comment DIFF FINAL Differential Comment Sodium Level 134 Potassium Level 5.2 Chloride Level 104 Carbon Dioxide Level 21.5 Anion Gap 9 Blood Urea Nitrogen 31 Creatinine 1.23 Estimat Glomerular Filtration 61 Rate Random Glucose 116 Lactic Acid Level 2.1 1.5 0.9 Calcium Level 9.8 Total Bilirubin 0.4 Aspartate Amino Transf 19 (AST/SGOT) Alanine Aminotransferase 25 (ALT/SGPT) Alkaline Phosphatase 82 C-Reactive Protein 4.40 Total Protein 8.0 Albumin 3.5 Erythrocyte Sedimentation Rate 63 Date/Time Procedure Status Source Growth 09/12/16 11:50 Aerobic Blood Culture Received Blood Peripheral Pending 09/12/16 11:50 Anaerobic Blood Culture Received Blood Peripheral Pending 09/12/16 11:45 Gram Stain Received Wound Foot Pending 09/12/16 11:45 Wound Culture Received Wound Foot Pending Last 48 hours Impressions Foot MRI 09/12/16 0000 Signed Impressions: Service Date/Time: Monday, September 12, 2016 15:53 - CONCLUSION: Diffuse cellulitis involving the right fifth toe as well as some edema and enhancement of the head of the right fifth metatarsal as well as the right fifth phalanges raising the possibility of osteomyelitis. Tagged white blood cell scan may be helpful for confirmation of osteomyelitis if clinically indicated. No deep soft tissue abscess is noted. Otis Pryor MD Aorta w/Runoff CTA 09/12/16 0000 Signed Impressions: Service Date/Time: Monday, September 12, 2016 15:24 - CONCLUSION: 1. No significant iliac occlusive disease or inflow stenosis. 2. Progressive outflow disease with tandem haqw-lj-hzgxqiwx stenoses of the distal SFA and popliteal arteries on the right and continued diffuse runoff disease. Patient may benefit from limb salvage outflow intervention. 3. Diffusely diseased 3 vessel runoff on the right. Interval left below-knee amputation. 4. Progressive visceral artery stenoses as above. 5. Redemonstration of prominent bilateral perinephric stranding and intermediate density masslike collections the right skin unchanged from August [address] scan. Differential considerations include inflammatory change/collections versus renal lymphoma although unlikely given interval stability. Herbert Das MD Assessment and Plan Assessment: (1) Right foot ulcer Status: Acute Plan 1. DFU right lower extremity. ABX IV Heel protection angiogram later this week. ABIs in the interim Blood glucose tight control Dejon Cano DO, FACS Problem Qualifiers (1) Right foot ulcer: Qualified Code: L97.519 - Right foot ulcer, with unspecified severity Dejon Cano DO Sep 12, 2016 20:16
[2016-09-12] MEDS ORDERED: INSULIN DETEMIR 100 UNITS/ML VIAL SQ SCH (21:00)
[2016-09-12] MEDS: glyBURIDE 5 MG TAB PO SCH (21:53)
[2016-09-12] MEDS: ATORVASTATIN 80 MG TAB PO SCH (21:53)
[2016-09-13] VITALS: BP 117/53; PULSE 64; RESP 18; TEMP 97.7; O2SAT 95
[2016-09-13] MEDS: ACETAMINOPHEN/HYDROcodone 325 MG/5 MG TAB PO PRN ×4 (05:14→19:23)
[2016-09-13] MEDS: glyBURIDE 5 MG TAB PO SCH ×2 (05:15→17:32)
[2016-09-13 06:17] LABS: BICARBONATE 25.3 MEQ/L (21.0-32.0); POTASSIUM 5.2 MEQ/L (3.5-5.1)
[2016-09-13] MEDS: INSULIN ASPART SUPPLEMENTAL SCALE SQ SCH ×4 (07:00→22:04)
[2016-09-13 08:00] VITALS: BP 170/79; PULSE 63; RESP 17; TEMP 96.7; O2SAT 95
[2016-09-13] MEDS: LACTOBACILLUS ACIDOPHILUS TAB PO SCH (08:01)
[2016-09-13] MEDS: HYDROCHLOROTHIAZIDE 25 MG TAB PO SCH (08:01)
[2016-09-13] MEDS: LISINOPRIL 20 MG TAB PO SCH ×2 (08:01→22:01)
[2016-09-13] MEDS ORDERED: INSULIN DETEMIR 100 UNITS/ML VIAL SQ SCH (09:00)
--- NOTE | 2016-09-13 11:32 | HHI.PR ---
Subjective Remarks Pt feeling well today Afebrile He is planned for angiogram tomorrow and Podiatry is also planned for surgery tomorrow Objective Vitals Vital Signs Date Time Temp Pulse Resp B/P Pulse Ox O2 Delivery O2 Flow Rate FiO2 09/13/16 08:00 96.7 63 17 170/79 95 09/13/16 00:00 97.7 64 18 117/53 95 09/12/16 20:00 97.6 61 18 139/67 96 09/12/16 17:42 18 09/12/16 16:45 95.9 75 18 177/88 98 09/12/16 15:00 86 18 168/88 98 Room Air 09/12/16 12:10 72 18 169/76 98 Room Air 09/12/16 11:33 97.8 86 18 210/85 98 Room Air 09/12/16 11:33 86 18 09/12/16 09/12/16 09/13/16 14:59 22:59 06:59 Intake Total 480 ml Balance 480 ml Intake Oral 480 ml IV Total 0 ml # Voids 2 # Bowel Movements 0 Result Diagram: 09/12/16 1145 09/13/16 0511 Other Results Laboratory Tests Test 09/12/16 09/12/16 09/12/16 09/12/16 11:45 13:40 14:00 17:32 White Blood Count 12.0 TH/MM3 Red Blood Count 4.66 MIL/MM3 Hemoglobin 14.0 GM/DL Hematocrit 42.9 % Mean Corpuscular Volume 91.9 FL Mean Corpuscular Hemoglobin 29.9 PG Mean Corpuscular Hemoglobin 32.6 % Concent Red Cell Distribution Width 13.5 % Platelet Count 276 TH/MM3 Mean Platelet Volume 8.8 FL Neutrophils (%) (Auto) 77.1 % Lymphocytes (%) (Auto) 14.8 % Monocytes (%) (Auto) 6.5 % Eosinophils (%) (Auto) 1.2 % Basophils (%) (Auto) 0.4 % Neutrophils # (Auto) 9.2 TH/MM3 Lymphocytes # (Auto) 1.8 TH/MM3 Monocytes # (Auto) 0.8 TH/MM3 Eosinophils # (Auto) 0.1 TH/MM3 Basophils # (Auto) 0.1 TH/MM3 CBC Comment DIFF FINAL Differential Comment Sodium Level 134 MEQ/L Potassium Level 5.2 MEQ/L Chloride Level 104 MEQ/L Carbon Dioxide Level 21.5 MEQ/L Anion Gap 9 MEQ/L Blood Urea Nitrogen 31 MG/DL Creatinine 1.23 MG/DL Estimat Glomerular Filtration 61 ML/MIN Rate Random Glucose 116 MG/DL Lactic Acid Level 2.1 mmol/L 1.5 mmol/L 0.9 mmol/L Calcium Level 9.8 MG/DL Total Bilirubin 0.4 MG/DL Aspartate Amino Transf 19 U/L (AST/SGOT) Alanine Aminotransferase 25 U/L (ALT/SGPT) Alkaline Phosphatase 82 U/L C-Reactive Protein 4.40 MG/DL Total Protein 8.0 GM/DL Albumin 3.5 GM/DL Erythrocyte Sedimentation Rate 63 mm/hr Test 09/13/16 05:11 Sodium Level 139 MEQ/L Potassium Level 5.2 MEQ/L Chloride Level 108 MEQ/L Carbon Dioxide Level 25.3 MEQ/L Anion Gap 6 MEQ/L Blood Urea Nitrogen 26 MG/DL Creatinine 1.18 MG/DL Estimat Glomerular Filtration 64 ML/MIN Rate Random Glucose 143 MG/DL Calcium Level 8.8 MG/DL Imaging Last Impressions Foot MRI 09/12/16 0000 Signed Impressions: Service Date/Time: Monday, September 12, 2016 15:53 - CONCLUSION: Diffuse cellulitis involving the right fifth toe as well as some edema and enhancement of the head of the right fifth metatarsal as well as the right fifth phalanges raising the possibility of osteomyelitis. Tagged white blood cell scan may be helpful for confirmation of osteomyelitis if clinically indicated. No deep soft tissue abscess is noted. Otis Pryor MD Aorta w/Runoff CTA 09/12/16 0000 Signed Impressions: Service Date/Time: Monday, September 12, 2016 15:24 - CONCLUSION: 1. No significant iliac occlusive disease or inflow stenosis. 2. Progressive outflow disease with tandem ipsu-nt-joeonhmd stenoses of the distal SFA and popliteal arteries on the right and continued diffuse runoff disease. Patient may benefit from limb salvage outflow intervention. 3. Diffusely diseased 3 vessel runoff on the right. Interval left below-knee amputation. 4. Progressive visceral artery stenoses as above. 5. Redemonstration of prominent bilateral perinephric stranding and intermediate density masslike collections the right skin unchanged from August [address] scan. Differential considerations include inflammatory change/collections versus renal lymphoma although unlikely given interval stability. Herbert Das MD Objective Remarks General: NAD, AAOx3 Chest: CTA Cardiac: Regular Abd: +BS, soft ND/NT Ext: Right plantar ulceration about the size of a quarter with black center with no drainage. Swelling and erythema of 5th toe and mild redness. A/P Problem List: (1) Right foot ulcer Status: Acute Plan: - Pt is 56 yo with DM and PAD who presented with a right foot ulceration/ swelling plantar and right 5th digit - MRI foot (09/12) --> Diffuse cellulitis involving the right fifth toe as well as some edema and enhancement of the head of the right fifth metatarsal as well as the right fifth phalanges raising the possibility of osteomyelitis. No deep soft tissue abscess is noted. - Pediatry is following and is planning for surgical intervention tomorrow per the pt. - Vascular Surgery is following and pt is planned for angiogram tomorrow per the pt. . - Cont abx per prior cx - Pain control PRN - Constipation precautions. (2) S/P BKA (below knee amputation) Status: Chronic (3) DM (diabetes mellitus) Status: Chronic Plan: - NovoLog SSI - Levemir 20 units BID - Accu checks (4) HTN (hypertension) Status: Chronic Plan: - Home meds continued Assessment and Plan Patient examined. Assessment and plan formulated with Megha Mcfarland PA-C. I agree with the above. surgical plans noted pt levemir was held this AM and bg trending up. ssi. Problem Qualifiers (1) Right foot ulcer: Qualified Code: L97.519 - Right foot ulcer, with unspecified severity (2) S/P BKA (below knee amputation): Qualified Code: Z89.512 - S/P BKA (below knee amputation), left Megha Mcfarland Sep 13, 2016 11:32 Abhinav Coleman MD Sep 13, 2016 16:09
[2016-09-13] MEDS ORDERED: MAGNESIUM HYDROXIDE SUSP 30 ML CUP PO PRN (11:45)
[2016-09-13] MEDS ORDERED: SENNOSIDES 8.6 MG TAB PO PRN (11:45)
--- NOTE | 2016-09-13 11:54 | PD.VS.PN ---
Subjective Subjective/Hospital Course Pt sitting in chair w/o complaints Changed dressing to RLE (Janet Bender) Objective Vitals/I&O Date Time Temp Pulse Resp B/P Pulse Ox O2 Delivery O2 Flow Rate FiO2 09/13/16 08:00 96.7 63 17 170/79 95 09/13/16 00:00 97.7 64 18 117/53 95 09/12/16 20:00 97.6 61 18 139/67 96 09/12/16 17:42 18 09/12/16 16:45 95.9 75 18 177/88 98 09/12/16 15:00 86 18 168/88 98 Room Air 09/12/16 12:10 72 18 169/76 98 Room Air Physical Exam GENERAL: A&OX3, NAD, GCS15 SKIN: Warm and dry/ Dry ulceration to R lateral aspect of foot MUSCULOSKELETAL: No edema/ Hx of L BKA R- DP palpable R- PT non palpable RLE warm with motor intact (Janet Bender) Laboratory Laboratory Tests Test 09/12/16 09/12/16 09/12/16 09/13/16 13:40 14:00 17:32 05:11 Erythrocyte Sedimentation Rate 63 Lactic Acid Level 1.5 0.9 Sodium Level 139 Potassium Level 5.2 Chloride Level 108 Carbon Dioxide Level 25.3 Anion Gap 6 Blood Urea Nitrogen 26 Creatinine 1.18 Estimat Glomerular Filtration 64 Rate Random Glucose 143 Calcium Level 8.8 Date/Time Procedure Status Source Growth 09/12/16 11:50 Aerobic Blood Culture - Preliminary Resulted Blood Peripheral NO GROWTH IN 1 DAY 09/12/16 11:50 Anaerobic Blood Culture - Preliminary Resulted Blood Peripheral NO GROWTH IN 1 DAY 09/12/16 11:45 Gram Stain - Final Resulted Wound Foot 09/12/16 11:45 Wound Culture Resulted Wound Foot Pending Imaging Last 48 hours Impressions Foot MRI 09/12/16 0000 Signed Impressions: Service Date/Time: Monday, September 12, 2016 15:53 - CONCLUSION: Diffuse cellulitis involving the right fifth toe as well as some edema and enhancement of the head of the right fifth metatarsal as well as the right fifth phalanges raising the possibility of osteomyelitis. Tagged white blood cell scan may be helpful for confirmation of osteomyelitis if clinically indicated. No deep soft tissue abscess is noted. Otis Pryor MD Aorta w/Runoff CTA 09/12/16 0000 Signed Impressions: Service Date/Time: Saturday, September 12, 2016 15:24 - CONCLUSION: 1. No significant iliac occlusive disease or inflow stenosis. 2. Progressive outflow disease with tandem bmpz-en-exrzcvqt stenoses of the distal SFA and popliteal arteries on the right and continued diffuse runoff disease. Patient may benefit from limb salvage outflow intervention. 3. Diffusely diseased 3 vessel runoff on the right. Interval left below-knee amputation. 4. Progressive visceral artery stenoses as above. 5. Redemonstration of prominent bilateral perinephric stranding and intermediate density masslike collections the right skin unchanged from August [address] scan. Differential considerations include inflammatory change/collections versus renal lymphoma although unlikely given interval stability. Herbert Das MD (Janet Bender) Assessment and Plan Assessment: (1) Right foot ulcer Status: Acute Plan Plan Apply heel protector to RLE Discussed Angiogram procedure w/ patient Questions answered and consents were signed Consent placed in the chart Pt scheduled for an Angiogram tomorrow am with Dr. Cano NPO after midnight Janet SOTO [facility] [phone] (Janet Bender) Plan I agree with above. Plan for angiogram in am. Dejon Cano DO, VICTORIANO (Dejon Cano DO) Problem Qualifiers (1) Right foot ulcer: Qualified Code: L97.519 - Right foot ulcer, with unspecified severity Janet Bender Sep 13, 2016 11:54 Dejon Cano DO Sep 13, 2016 15:20
[2016-09-13 12:00] VITALS: BP 178/84; PULSE 67; RESP 17; TEMP 96.1; O2SAT 94
[2016-09-13] MEDS: DOCUSATE SODIUM 50 MG/SENNA 8.6 MG TAB PO SCH ×2 (12:17→22:01)
[2016-09-13] MEDS: cefTRIAXone INJ 2,000 MG in SODIUM CHLORIDE 0.9% INJ 100 ML IV SCH (12:17)
[2016-09-13 16:00] VITALS: BP 173/66; PULSE 71; RESP 17; TEMP 95.6; O2SAT 91
[2016-09-13 20:00] VITALS: BP 167/70; PULSE 67; RESP 18; TEMP 97.2; O2SAT 98
[2016-09-13 21:24] LABS: BICARBONATE 25.2 MEQ/L (21.0-32.0); POTASSIUM 5.1 MEQ/L (3.5-5.1)
[2016-09-13] MEDS: ATORVASTATIN 80 MG TAB PO SCH (22:01)
[2016-09-14] VITALS (12 sets, daily range): BP systolic 142–187; BP diastolic 58–94; PULSE 62–85; RESP 12–18; TEMP 95.8–98.6; O2SAT 94–97
[2016-09-14] MEDS: ACETAMINOPHEN/HYDROcodone 325 MG/5 MG TAB PO PRN ×4 (01:10→23:36)
[2016-09-14] MEDS: INSULIN ASPART SUPPLEMENTAL SCALE SQ SCH ×4 (06:04→20:27)
[2016-09-14] MEDS: glyBURIDE 5 MG TAB PO SCH ×2 (06:04→16:00)
[2016-09-14] MEDS: DOCUSATE SODIUM 50 MG/SENNA 8.6 MG TAB PO SCH ×2 (08:24→20:27)
[2016-09-14] MEDS: LACTOBACILLUS ACIDOPHILUS TAB PO SCH (08:24)
[2016-09-14] MEDS: HYDROCHLOROTHIAZIDE 25 MG TAB PO SCH (08:24)
[2016-09-14] MEDS: LISINOPRIL 20 MG TAB PO SCH ×2 (08:24→20:27)
--- NOTE | 2016-09-14 10:35 | HHI.PR ---
Subjective Remarks Pt reports that he had increased pain last night and the po pain medications were not enough No fevers Pt is planned for angiogram this morning and surgery this evening. Objective Vitals Vital Signs Date Time Temp Pulse Resp B/P Pulse Ox O2 Delivery O2 Flow Rate FiO2 09/14/16 08:00 97.4 63 17 187/84 95 09/14/16 04:00 97.8 63 18 142/71 94 09/14/16 00:00 97.4 68 18 186/86 94 09/13/16 20:00 97.2 67 18 167/70 98 09/13/16 16:00 95.6 71 17 173/66 91 09/13/16 12:00 96.1 67 17 178/84 94 09/13/16 09/13/16 09/14/16 15:00 23:00 07:00 Intake Total 1260 ml Balance 1260 ml Intake Oral 1160 ml IV Total 100 ml # Voids 2 2 1 # Bowel Movements 0 Result Diagram: 09/12/16 1145 09/13/16 1811 Other Results Laboratory Tests Test 09/12/16 09/12/16 09/12/16 09/12/16 11:45 13:40 14:00 17:32 White Blood Count 12.0 TH/MM3 Red Blood Count 4.66 MIL/MM3 Hemoglobin 14.0 GM/DL Hematocrit 42.9 % Mean Corpuscular Volume 91.9 FL Mean Corpuscular Hemoglobin 29.9 PG Mean Corpuscular Hemoglobin 32.6 % Concent Red Cell Distribution Width 13.5 % Platelet Count 276 TH/MM3 Mean Platelet Volume 8.8 FL Neutrophils (%) (Auto) 77.1 % Lymphocytes (%) (Auto) 14.8 % Monocytes (%) (Auto) 6.5 % Eosinophils (%) (Auto) 1.2 % Basophils (%) (Auto) 0.4 % Neutrophils # (Auto) 9.2 TH/MM3 Lymphocytes # (Auto) 1.8 TH/MM3 Monocytes # (Auto) 0.8 TH/MM3 Eosinophils # (Auto) 0.1 TH/MM3 Basophils # (Auto) 0.1 TH/MM3 CBC Comment DIFF FINAL Differential Comment Sodium Level 134 MEQ/L Potassium Level 5.2 MEQ/L Chloride Level 104 MEQ/L Carbon Dioxide Level 21.5 MEQ/L Anion Gap 9 MEQ/L Blood Urea Nitrogen 31 MG/DL Creatinine 1.23 MG/DL Estimat Glomerular Filtration 61 ML/MIN Rate Random Glucose 116 MG/DL Lactic Acid Level 2.1 mmol/L 1.5 mmol/L 0.9 mmol/L Calcium Level 9.8 MG/DL Total Bilirubin 0.4 MG/DL Aspartate Amino Transf 19 U/L (AST/SGOT) Alanine Aminotransferase 25 U/L (ALT/SGPT) Alkaline Phosphatase 82 U/L C-Reactive Protein 4.40 MG/DL Total Protein 8.0 GM/DL Albumin 3.5 GM/DL Erythrocyte Sedimentation Rate 63 mm/hr Test 09/13/16 09/13/16 05:11 18:11 Sodium Level 139 MEQ/L 135 MEQ/L Potassium Level 5.2 MEQ/L 5.1 MEQ/L Chloride Level 108 MEQ/L 102 MEQ/L Carbon Dioxide Level 25.3 MEQ/L 25.2 MEQ/L Anion Gap 6 MEQ/L 8 MEQ/L Blood Urea Nitrogen 26 MG/DL 22 MG/DL Creatinine 1.18 MG/DL 1.07 MG/DL Estimat Glomerular Filtration 64 ML/MIN 71 ML/MIN Rate Random Glucose 143 MG/DL 204 MG/DL Calcium Level 8.8 MG/DL 9.0 MG/DL Imaging Last Impressions Foot MRI 09/12/16 0000 Signed Impressions: Service Date/Time: Monday, September 12, 2016 15:53 - CONCLUSION: Diffuse cellulitis involving the right fifth toe as well as some edema and enhancement of the head of the right fifth metatarsal as well as the right fifth phalanges raising the possibility of osteomyelitis. Tagged white blood cell scan may be helpful for confirmation of osteomyelitis if clinically indicated. No deep soft tissue abscess is noted. Otis Pryor MD Aorta w/Runoff CTA 09/12/16 0000 Signed Impressions: Service Date/Time: Monday, September 12, 2016 15:24 - CONCLUSION: 1. No significant iliac occlusive disease or inflow stenosis. 2. Progressive outflow disease with tandem zuhk-tp-eqrxpajf stenoses of the distal SFA and popliteal arteries on the right and continued diffuse runoff disease. Patient may benefit from limb salvage outflow intervention. 3. Diffusely diseased 3 vessel runoff on the right. Interval left below-knee amputation. 4. Progressive visceral artery stenoses as above. 5. Redemonstration of prominent bilateral perinephric stranding and intermediate density masslike collections the right skin unchanged from August [address] CT scan. Differential considerations include inflammatory change/collections versus renal lymphoma although unlikely given interval stability. Herbert Das MD Objective Remarks General: NAD, AAOx3 Chest: CTA Cardiac: Regular Abd: +BS, soft ND/NT Ext: Right plantar ulceration about the size of a quarter with black center with no drainage. Swelling and erythema of 5th toe and mild redness. A/P Problem List: (1) Right foot ulcer Status: Acute Plan: - Pt is 56 yo with DM and PAD who presented with a right foot ulceration/ swelling plantar and right 5th digit - MRI foot (09/12) --> Diffuse cellulitis involving the right fifth toe as well as some edema and enhancement of the head of the right fifth metatarsal as well as the right fifth phalanges raising the possibility of osteomyelitis. No deep soft tissue abscess is noted. - Pediatry is following and is planning for surgical intervention this evening - Vascular Surgery is following and pt is planned for angiogram today. - Cont abx per prior cx - Pain control PRN - Constipation precautions. (2) S/P BKA (below knee amputation) Status: Chronic (3) DM (diabetes mellitus) Status: Chronic Plan: - NovoLog SSI - Levemir 20 units BID - Accu checks (4) HTN (hypertension) Status: Chronic Plan: - Home meds continued Assessment and Plan Patient examined. Assessment and plan formulated with Megha Mcfarland PA-C. I agree with the above. s/p angiogram with good flow partial 5th ray amptuation today for osteo right foot. Problem Qualifiers (1) Right foot ulcer: Qualified Code: L97.519 - Right foot ulcer, with unspecified severity (2) S/P BKA (below knee amputation): Qualified Code: Z89.512 - S/P BKA (below knee amputation), left Megha Mcfarland Sep 14, 2016 10:35 Abhinav Coleman MD Sep 14, 2016 21:21
[2016-09-14] MEDS: SODIUM CHLOR 0.9% 1000 ML INJ 1,000 ML IV SCH ×2 (11:25→22:20)
[2016-09-14] MEDS: cefTRIAXone INJ 2,000 MG in SODIUM CHLORIDE 0.9% INJ 100 ML IV SCH (11:25)
[2016-09-14] MEDS: MORPHINE SULFATE 4 MG/ML INJ IV PUSH PRN ×2 (11:28→18:53)
[2016-09-14] MEDS ORDERED: HEPARIN-NS/PF INJ 500 ML ONE (11:56)
[2016-09-14] MEDS ORDERED: NITROGLYCERIN INJ 5 ML ONE (11:57)
[2016-09-14] MEDS ORDERED: MIDAZOLAM HCL 5 MG/5 ML VIAL ONE (11:57)
[2016-09-14] MEDS ORDERED: HEPARIN SODIUM - IV 10,000 UNITS/10 ML VIAL ONE (11:57)
[2016-09-14] MEDS ORDERED: IOHEXOL 350 MG/ML 100 ML BTL (for Cath Lab) OTHER ONE (12:38)
--- NOTE | 2016-09-14 13:21 | CATHPROC ---
[employer] [facility] Report Study Information Study Number Admission Scheduled Start Study Start [id number] Sep 12 2016 1:02PM 09/14/2016 Sep 14 2016 11:59AM [place] Service Cardiac Catheterization Admit Source Facility Department Emergency department [facility] Physician and Clinical Staff Initial Dejon Gipson Finished Goods Stock ClerkMegha Burgos,FAVIAN Finished Goods Stock ClerkKeny Clark,FAVIAN Other Massimo, Massiel,WORKFORCE MANAGER TECH2 Recorder Karthik Díaz,RT(R) Recorder Megha Bergman,FAVIAN Scrub Galina Mary,RT(R) (BS) X-Ray Joaquina Young,RT(R) TECH2 Procedures Performed Procedure Location (Site) Vessel Name Abdominal Angiogram Abd Aorta (A3) Aorta Abdominal Angiogram PELVIS Angiogram (manual) Fem Sup. (right) Femoral Art Angiogram (manual) Popliteal R (R10) Popliteal Angiogram (manual) SFA (right) Femoral Art Angiogram (manual) Tib, Ant. (right) Popliteal Wire insertion Fem Art (left) Femoral Art Equipment Time Hostess Host Description Size Mfg Part Number Used/Scraped [id number] 12:41 ANGIO-DYNAMICS OMNI FLUSH 65CM CATHETER FR 5 Used *[id number]- INTRODUCER SET, 12:41 [employer] FR 5 SC-NT-U-SST Used MICROPUNCTURE, STIFFENED *[id number] 49-145 12:41 [employer] WIRE, [place] .035 150CM 150CM Used *[id number] 12:41 [employer] PACK, CCL CUSTOM * Used *[id number] 12:41 NAMIC TUBING, HIGH PRESSURE 48" 48" Used *[id number] 12:46 NAMIC TUBING, HIGH PRESSURE 48" 48" Used *[id number] 12:41 [employer] OMNIPAQUE, 300 MG, 150ML 150ML [id number] Used 12:41 [employer] OMNIPAQUE, 300 MG, 50ML 50ML [id number] Used [id number] 12:41 [employer] BL[employer]ET,WARM AIR CCL * Used *[id number] 12:41 [employer] SHEATH, FR5 TERUMO (10CM) FR 5 Used *[id number] WIRE, ANGLE GLIDE STIFF .035 [id number] 12:41 TERUMO MEDICAL/IMANI 260CM Used 260CM *[id number] History: Current Medications Medication Dosage/Unit Route Frequency Last Date/Time Taken NOVOLOG LISINOPRIL Glyburide Glucophage Statins (any) History: Allergies Allergy Reaction No Known Allergies History: Risk Factors Family History of Hypertension Dyslipidemia Previous SD Previous Heart Failure Premature CAD Yes Yes Yes No No Prior Valve Prior PCI Prior CABG Surgery No No No Cerebrovascular Peripheral Artery Chronic Lung On Dialysis Diabetes Diabetes Therapy Disease Disease Disease No No Yes No Yes Insulin History: Stress Tests Stress or Imaging Studies Performed No History: Other Disease Selection Items HTN History: Other Current Smoker Method Quit Packs a Day Years Used Pack Years No Cigarettes 20 Years Ago 1 7 7 Labs Hgb (g/dl) Hct (%) RBC (MIL/MM3) WBC (l/cumm) Platelets (thousands) 11.60-17.00 35.00-51.00 4.00-5.90 4.00-11.00 150.00-450.00 14.0 42.9 4.6 12 276 Glucose (mg/dl) BUN (mg/dl) Creatinine (mg/dl) BUN:Creatinine (1:x) 74.00-106.00 7.00-18.00 0.50-1.30 10.00-20.00 204 22 1.0 22 Na (meq/l) K (meq/l) Cl (meq/l) CO2 (mmol/L) Ca (mg/dl) 136.00-145.00 3.50-5.10 98.00-107.00 21.00-32.00 8.50-10.10 135 5.1 102 25.2 9 CPK-MB (ng/ML) 0.50-3.60 Not Drawn Medication Medication Total Dose (Bolus/Oral) Medication Total Dosage/Unit 1% XYLOCAINE 20 mL FENTANYL 50 mcg VERSED 3 mg Medications (Bolus/Oral) Medication Time Given Dosage/Unit Administered By Reason VERSED 09/14/2016 12:30:15 PM 1 mg Keny Rey 1 mg VERSED given in lab by Keny Rey, FAVIAN via Peripheral IV. VERSED 09/14/2016 12:36:55 PM 2 mg Keny Rey 2 mg VERSED given in lab by Keny Rey RN in Left Wrist via Peripheral IV. FENTANYL 09/14/2016 12:37:07 PM 50 mcg Keny Rey 50 mcg FENTANYL given in lab by Keny Rey RN in Left Wrist via Peripheral IV. 1% XYLOCAINE 09/14/2016 12:41:17 PM 20 mL Dejon Cano 20 mL 1% XYLOCAINE given in lab by Dejon Cano in Left Groin via Subcutaneous. Medication (Drip) Medication Time Given Dosage/Unit Concentration/Unit Diluent (ml) Solutio n IV Solutions 09/14/2016 12:00:38 PM 0 mL (IV) 500 NaCl .9 IV Solutions given in lab by Keny Rey RN in Left Wrist via Peripheral IV. Pump/Drip Flow = 20 ml/hr using NaCl .9. Initial Case Assessment Cardiovascular HR Rhythm NIBP Chest Pain 70 Sinus 219/103 0 Edema Present Skin color Skin None Normal Warm Dry Circulatory - Right Pulses Dorsalis Pedis Posterior Tibial Femoral 0 d 1 Scale (0,1,2,3,4,d) Circulatory - Left Pulses Dorsalis Pedis Posterior Tibial Femoral 1 Scale (0,1,2,3,4,d) Neurological State Oriented to time-place- Alert Moves all extremities person Respiration - General Respiration Rate SpO2 (%) O2 (lpm) (B/min) 15 96 0 Final Case Assessment Cardiovascular HR Rhythm NIBP Chest Pain 64 sinus 167/90 0 Edema Present Skin color Skin None Normal Warm Dry Circulatory - Right Pulses Dorsalis Pedis Posterior Tibial Femoral 0 d 1 Scale (0,1,2,3,4,d) Circulatory - Left Pulses Dorsalis Pedis Posterior Tibial Femoral 1 Scale (0,1,2,3,4,d) Circulatory - Lower Extremities Color Lower Right Normal Neurological State Oriented to time-place- Alert Moves all extremities person Respiration - General Respiration Rate SpO2 (%) (B/min) 15 96 Chronological Log Time Study Chronological Log 11:50:23 Patient arrived via Bed. 11:59:35 Patient Name, D.O.B, / Armband Verified By R.N. 11:59:36 Consent signed by the physician and the patient and verified by the [facility] staff. 11:59:36 Pre-op and post- op instructions given; patient acknowledges understanding of instructions. 11:59:37 Verbal Stimulation=2 Physical Stimulation=2 Airway=2 Respiration=2 TOTAL=8. (0=absent, 1=isabela draper 2=present) 11:59:39 Presedation assessment performed by [facility] RN. 11:59:42 Patient has been NPO for More than 6Hrs. Skin Breakdown- right foot wound 11:59:42 Vitals capture started with the following parameters, Patient=Adult, Interval=5 min, Initial Pr csjwlp=564 mmHg, 12:00:03 Deflation Rate=5 mmHg 12:00:08 A # 18 IV was noted in the Wrist (left). Grade = 0 12:00:38 IV Solutions given in lab by Keny Rey, RN in Left Wrist via Peripheral IV. Pump/Drip Flow = 20 ml/hr using NaCl .9. 12:02:12 HR=70 bpm, XYLI=551/103 mmhg, SpO2=96.0 %, Resp=15 B/min, Pain=0, Uday=10, Dominguez=2 12:05:55 HR=69 bpm, TGOY=670/99 mmhg, SpO2=97.0 %, Resp=18 B/min, Pain=0, Uday=10, Dominguez=2 Assessment: Initial Case, HR=70 BPM, Rhythm=Sinus, YZYI=049/103 mmhg, Chest Pain=0, Edema=None, Color=Normal, Skin = Warm, Dry Right Pulses: Sergo Ped=0, Post Tib=d, Femoral=1 12:07:14 Left Pulses: Femoral=1 Neurological: State=Alert, Ox3, DUKE Respiration: Resp=15 B/min, SpO2=96 %, O2=0 lpm 12:10:52 HR=68 bpm, AKJS=446/94 mmhg, SpO2=97.0 %, Resp=11 B/min, Pain=0, Uday=10, Dominguez=2 12:13:50 Bilateral groins prepped with 2% chlorhexidine, and with a 3 min. waiting time. 12:15:51 HR=69 bpm, ABFF=947/101 mmhg, SpO2=99.0 %, Resp=10 B/min, Pain=0, Uday=10, Dominguez=2 12:20:01 MD faustin 12:20:52 HR=69 bpm, PBPZ=922/99 mmhg, SpO2=98.0 %, Resp=8 B/min, Pain=0, Uday=10, Dominguez=2 12:25:53 HR=68 bpm, MMTI=312/95 mmhg, SpO2=97.0 %, Resp=17 B/min, Pain=0, Uday=10, Dominguez=2 12:30:15 1 mg VERSED given in lab by Keny Rey RN via Peripheral IV. 12:30:50 HR=67 bpm, OUTW=485/91 mmhg, SpO2=97.0 %, Resp=17 B/min, Pain=0, Uday=10, Dominguez=2 12:32:35 MD arrived. 12:35:47 HR=68 bpm, YALL=074/95 mmhg, SpO2=97.0 %, Resp=19 B/min, Pain=0, Uday=10, Dominguez=2 12:36:55 2 mg VERSED given in lab by Keny Rey RN in Left Wrist via Peripheral IV. 12:37:07 50 mcg FENTANYL given in lab by Keny Rey RN in Left Wrist via Peripheral IV. Time Out. Correct patient, correct procedure,correct physician, ,power injector loaded or not l oaded with contrast with 12:38:00 surgical team present. Time Out Concurred by MD, individual staff and PARALEGAL INSTRUCTOR in procedure 12:38:44 Case Start 12:40:53 HR=64 bpm, OWCT=509/81 mmhg, SpO2=97.0 %, Resp=13 B/min, Pain=0, Uday=10, Dominguez=2 12:41:17 20 mL 1% XYLOCAINE given in lab by Dejon Cano in Left Groin via Subcutaneous. 12:43:08 Access site was Left Femoral Artery. 12:43:14 A SHEATH, FR5 TERUMO (10CM) FR 5 was advanced into the Fem Art (left) using the Percutaneou s technique. 12:44:27 An injection in the Fem Art (left) was made through the SHEATH, FR5 TERUMO (10CM) FR 5. A OMNI FLUSH 65CM CATHETER FR 5 was advanced over a wire. OMNIPAQUE, 300 MG, 150ML 150ML was us ed for 12:44:47 injections. 12:45:00 Wire removed 12:45:48 HR=64 bpm, NEVN=138/89 mmhg, SpO2=98.0 %, Resp=16 B/min, Pain=0, Uday=10, Dominguez=2 12:48:37 Through a OMNI FLUSH 65CM CATHETER FR 5, The Abdominal Aorta was injected with 10 cc's of c ontrast. 12:49:15 Through a OMNI FLUSH 65CM CATHETER FR 5, The Abdominal Aorta was injected with 10 cc's of c ontrast. 12:50:04 Through a OMNI FLUSH 65CM CATHETER FR 5, The Abdominal Aorta was injected with 10 cc's of c ontrast. 12:50:51 HR=69 bpm, AIUI=055/93 mmhg, SpO2=98.0 %, Resp=18 B/min, Pain=0, Uday=10, Dominguez=2 12:51:01 Through a OMNI FLUSH 65CM CATHETER FR 5, The Fem R. Com (R7) was injected with 5 cc's of co ntrast. 12:51:26 A WIRE, ANGLE GLIDE STIFF .035 260CM 260CM was inserted via Fem Art (left). 12:54:16 Fem Sup. (right) angiogram, manually injected. 12:54:47 SFA (right) angiogram, manually injected. 12:55:08 SFA (right) angiogram, manually injected. 12:55:52 HR=68 bpm, OROI=731/89 mmhg, SpO2=97.0 %, Resp=16 B/min, Pain=0, Uday=10, Dominguez=2 12:56:54 Popliteal R (R10) angiogram, manually injected. 12:57:12 Tib, Ant. (right) angiogram, manually injected. 12:57:47 Tib, Ant. (right) angiogram, manually injected. 12:57:59 Tib, Ant. (right) angiogram, manually injected. 12:58:16 Tib, Ant. (right) angiogram, manually injected. 12:58:40 Tib, Ant. (right) angiogram, manually injected. 12:59:27 Reference ECG taken 13:00:02 Tib, Ant. (right) angiogram, manually injected. 13:00:51 HR=67 bpm, CSQH=121/91 mmhg, SpO2=98.0 %, Resp=7 B/min, Pain=0, Uday=10, Dominguez=2 13:05:52 HR=65 bpm, SBPS=815/93 mmhg, SpO2=97.0 %, Resp=19 B/min, Pain=0, Uday=10, Dominguez=2 13:08:25 Catheter was removed w/o difficulty 13:09:22 Case End 13:10:49 HR=74 bpm, IRVU=831/91 mmhg, SpO2=98.0 %, Resp=17 B/min, Pain=0, Uday=10, Dominguez=2 13:11:51 Sheath(s) left in place, will be removed in Holding Area 13:13:26 DOCU called. Spoke to Cindy 13:13:37 Bedside Report will be given. 13:15:28 No case complications noted. 13:15:29 Sterile dressing applied to site 13:15:50 HR=64 bpm, JADE=892/93 mmhg, SpO2=98.0 %, Resp=15 B/min, Pain=0, Uday=10, Dominguez=2 13:17:01 Cine recording checked. Assessment: Final Case, HR=64 BPM, Rhythm=sinus, FCGA=932/90 mmhg, Chest Pain=0, Edema=None, Color=Normal, Skin = Warm, Dry Right Pulses: Sergo Ped=0, Post Tib=d, Femoral=1 13:17:26 Left Pulses: Femoral=1 Lower Right Extremities: Color=Normal Neurological: State=Alert, Ox3, [facility] Respiration: Resp=15 B/min, SpO2=96 % 13:17:51 Verbal Stimulation=2 Physical Stimulation=2 Airway=2 Respiration=2 TOTAL=8. (0=absent, 1=l imited, 2=present) 13:18:23 Patient moved to [facility] 13:19:16 Vitals capture stopped. End Study - Contrast Media Used In Study Contrast Total Opened (mL) Total Used (mL) Total Wasted (mL) Omnipaque 150 100 50 End Study - Maximum Contrast Load Max Contrast Load (mL) 615.9 End Study - Radiation Exposure Fluoro Time (minutes) 4.4 End Study - Patient Disposition Complications Transferred To Interventional Outcome No [facility] Holding successful
--- NOTE | 2016-09-14 13:40 | PD.CONS ---
History of Present Illness Service Podiatry Consult Requested By Reason for Consult R 5th metatarsal head area infection Primary Care Physician Unknown Diagnoses: History of Present Illness Patient has history of infections in L foot resulting in BKA and has been dealing with a wound to lateral R foot. He was seen by Dr Rose earlier this week and sent in to be evaluated. He was found to have evidence of osteomyelitis present and is scheduled for amputation later today. Past Family Social History Allergies: Coded Allergies: No Known Allergies (Unverified , 09/02/16) Past Medical History left bka pad lower ext. dm 2 htn cataract Past Surgical History L BKA Reported Medications Cipro (Ciprofloxacin HCl) 500 Mg Tab 500 Mg PO BID 7 Days Probiotic (Lactobacillus Acidophilus) 1 Cap Cap 1 Cap PO DAILY Fish Oil + D3 (Fish Oil-Cholecalciferol) 1,200-1,000 Mg-Unit Cap 1 Cap PO DAILY Tresiba Flextouch Pen Inj (Insulin Degludec Inj) 300 unit/3 ML Pen 60 Units SQ DAILY Vitamin D (Cholecalciferol) 2,000 Unit Tab 2,000 Units PO DAILY Metformin (Metformin HCl) 1,000 Mg Tab 1,000 Mg PO BIDPC With meals Lisinopril 20 Mg Tab 20 Mg PO bid Novolog Inj (Insulin Aspart) 1,000 Unit/10 Ml Vial 0 SQ DIRECTED Sliding Scale as directed. Hydrochlorothiazide 25 Mg Tab 25 Mg PO daily Glyburide 5 Mg Tab 5 Mg PO BID Take with meals at the same time each day Jardiance (Empagliflozin) 25 Mg Tab 25 Mg PO DAILY Atorvastatin (Atorvastatin Calcium) 80 Mg Tab 80 Mg PO HS Tanzeum 4-Pack Inj (Albiglutide) 50 Mg Pfpen 50 Mg SQ Q7D Active Ordered Medications Current Medications Medications (Trade) Dose Ordered Sig/Win Route Start Time Stop Time Status Last Admin ([place] 5-325 Mg) 1 tab Q4H PRN PO 09/12/16 15:30 ([place] 5-325 Mg) 2 tab Q4H PRN PO 09/12/16 15:30 09/14/16 08:32 (Catapres) 0.1 mg Q4H PRN PO 09/12/16 15:30 09/12/16 16:48 (Lipitor) 80 mg HS PO 09/12/16 21:00 09/13/16 22:01 (Diabeta) 5 mg BIDAC PO 09/12/16 19:00 09/14/16 06:04 Lactobacillus Acidophilus 1 tab 1 tab DAILY PO 09/13/16 09:00 09/14/16 08:24 (Rocephin Inj/NS Inj) 100 ml @ 200 mls/hr Q24H IV 09/13/16 12:00 09/14/16 11:25 (Tylenol) 650 mg Q4H PRN PO 09/12/16 18:00 (Zofran Inj) 4 mg Q6H PRN IV 09/12/16 18:00 (Hydrodiuril) 25 mg DAILY PO 09/13/16 09:00 09/14/16 08:24 (Prinivil) 20 mg BID PO 09/13/16 09:00 09/14/16 08:24 (Charissa-Colace) 1 tab BID PO 09/13/16 11:45 09/14/16 08:24 (Milk Of Magnron Liq) 30 ml Q12H PRN PO 09/13/16 11:45 Sennosides 17.2 mg 17.2 mg Q12H PRN PO 09/13/16 11:45 (NS 1000 ml Inj) 1,000 ml @ 80 mls/hr [id number] IV 09/14/16 10:45 09/14/16 11:25 (Morphine Inj) 4 mg Q3H PRN IV PUSH 09/14/16 10:45 09/14/16 11:28 Family History nc Social History no sig etoh or tob Physical Exam Vital Signs Vital Signs Date Time Temp Pulse Resp B/P Pulse Ox O2 Delivery O2 Flow Rate FiO2 09/14/16 12:00 95.8 62 12 149/66 94 09/14/16 08:00 97.4 63 17 187/84 95 09/14/16 04:00 97.8 63 18 142/71 94 09/14/16 00:00 97.4 68 18 186/86 94 09/13/16 20:00 97.2 67 18 167/70 98 09/13/16 16:00 95.6 71 17 173/66 91 Physical Exam R lateral foot with necrotic area and erythema at 5th metatarsal head and base of 5th toe areas. Mild purulence present. Laboratory Laboratory Tests Test 09/13/16 18:11 Sodium Level 135 Potassium Level 5.1 Chloride Level 102 Carbon Dioxide Level 25.2 Anion Gap 8 Blood Urea Nitrogen 22 Creatinine 1.07 Estimat Glomerular Filtration 71 Rate Random Glucose 204 Calcium Level 9.0 Date/Time Procedure Status Source Growth 09/12/16 11:50 Aerobic Blood Culture - Preliminary Resulted Blood Peripheral NO GROWTH IN 2 DAYS 09/12/16 11:50 Anaerobic Blood Culture - Preliminary Resulted Blood Peripheral NO GROWTH IN 2 DAYS 09/12/16 11:45 Gram Stain - Final Resulted Wound Foot 09/12/16 11:45 Wound Culture - Preliminary Resulted Wound Foot LIGHT GROWTH NORMAL SKIN HERMES... Result Diagram: 09/12/16 1145 09/13/16 1811 Imaging Last Impressions Foot MRI 09/12/16 0000 Signed Impressions: Service Date/Time: Monday, September 12, 2016 15:53 - CONCLUSION: Diffuse cellulitis involving the right fifth toe as well as some edema and enhancement of the head of the right fifth metatarsal as well as the right fifth phalanges raising the possibility of osteomyelitis. Tagged white blood cell scan may be helpful for confirmation of osteomyelitis if clinically indicated. No deep soft tissue abscess is noted. Otis Pryor MD Aorta w/Runoff CTA 09/12/16 0000 Signed Impressions: Service Date/Time: Monday, September 12, 2016 15:24 - CONCLUSION: 1. No significant iliac occlusive disease or inflow stenosis. 2. Progressive outflow disease with tandem mamc-ag-bodgxcel stenoses of the distal SFA and popliteal arteries on the right and continued diffuse runoff disease. Patient may benefit from limb salvage outflow intervention. 3. Diffusely diseased 3 vessel runoff on the right. Interval left below-knee amputation. 4. Progressive visceral artery stenoses as above. 5. Redemonstration of prominent bilateral perinephric stranding and intermediate density masslike collections the right skin unchanged from August [address] CT scan. Differential considerations include inflammatory change/collections versus renal lymphoma although unlikely given interval stability. Herbert Das MD Assessment and Plan Assessment and Plan R 5th toe and met head osteomyelitis Plan to OR later this afternoon for partial 5th ray amputation Will get cultures and bone biopsy to determine if long-term IV antibiotics required NPO after breakfast Dorothea Grimes DPM Sep 14, 2016 13:40
--- NOTE | 2016-09-14 13:53 | PD.VS.PN ---
Subjective POD #: 0 Procedure(s): aortogram and selective right lower extremity angio Subjective/Hospital Course Pt sitting in chair w/o complaints Changed dressing to RLE Objective Vitals/I&O Date Time Temp Pulse Resp B/P Pulse Ox O2 Delivery O2 Flow Rate FiO2 09/14/16 12:00 95.8 62 12 149/66 94 09/14/16 08:00 97.4 63 17 187/84 95 09/14/16 04:00 97.8 63 18 142/71 94 09/14/16 00:00 97.4 68 18 186/86 94 09/13/16 20:00 97.2 67 18 167/70 98 09/13/16 16:00 95.6 71 17 173/66 91 Pulses: Palpable femoral pulses and right DP pulse. Laboratory Laboratory Tests Test 09/13/16 18:11 Sodium Level 135 Potassium Level 5.1 Chloride Level 102 Carbon Dioxide Level 25.2 Anion Gap 8 Blood Urea Nitrogen 22 Creatinine 1.07 Estimat Glomerular Filtration 71 Rate Random Glucose 204 Calcium Level 9.0 Date/Time Procedure Status Source Growth 09/12/16 11:50 Aerobic Blood Culture - Preliminary Resulted Blood Peripheral NO GROWTH IN 2 DAYS 09/12/16 11:50 Anaerobic Blood Culture - Preliminary Resulted Blood Peripheral NO GROWTH IN 2 DAYS 09/12/16 11:45 Gram Stain - Final Resulted Wound Foot 09/12/16 11:45 Wound Culture - Preliminary Resulted Wound Foot LIGHT GROWTH NORMAL SKIN HERMES... Assessment and Plan Assessment: (1) Right foot ulcer Status: Acute Plan Patient with diabetic foot wound. Status post arteriogram with single vessel runoff via the right anterior tibial artery. No flow limiting lesion of this vessel. Podiatry will move forward with debridement of diabetic foot wound. Will follow along. Dejon Cano DO, FACS Problem Qualifiers (1) Right foot ulcer: Qualified Code: L97.519 - Right foot ulcer, with unspecified severity Dejon Cano DO Sep 14, 2016 13:53
[2016-09-14] MEDS ORDERED: NEOSTIGMINE METHYLSULFATE 10 MG/10 ML VIAL IV PUSH ONE (14:49)
[2016-09-14] MEDS ORDERED: PROPOFOL 200 MG/20 ML AMP IV ONE (14:49)
[2016-09-14] MEDS ORDERED: ONDANSETRON HCL 4 MG/2 ML VIAL IV PUSH ONE (14:50)
--- NOTE | 2016-09-14 15:35 | MA ---
cc: BRITNEY BREAUX DATE: 09/14/2016 PREOPERATIVE DIAGNOSIS Critical limb ischemia with diabetic foot wound, right lower extremity. POSTOPERATIVE DIAGNOSIS Critical limb ischemia with diabetic foot wound, right lower extremity. PROCEDURE Aortogram and selective right lower extremity arteriogram. SURGEON Jerome. ANESTHESIA Moderate sedation. IV FLUIDS 200 cc. ESTIMATED BLOOD LOSS Minimal. URINE OUTPUT Not calculated. COMPLICATIONS None. DISPOSITION To PACU. DETAILS OF PROCEDURE The patient's bilateral groins were prepped and draped in sterile fashion after being under moderate sedation. I got access to the left common femoral artery using duplex ultrasound. I placed a 21-gauge needle in the left common femoral artery after giving local anesthetic of 1% lidocaine. I exchanged for a 4-Georgian micropuncture catheter using Seldinger technique then exchanged for a 5-Georgian sheath. Then I advanced an Omni Flush catheter over a stiff angled Glidewire into the abdominal aorta. I shot an AP aortogram and then selected out the contralateral external iliac artery and shot a selective right lower extremity arteriogram. At the end of the procedure I pulled my catheter out over a wire and then I shot sheathogram through the right groin. At the end of the procedure we left the sheath in place to be removed in the postoperative area. FINDINGS The abdominal aorta and bilateral renal arteries were widely patent. The right common iliac artery had some mild disease at its origin. The right external and internal iliac arteries were widely patent. The left common iliac, internal and external iliac arteries were widely patent. The right common femoral artery was patent with a sheath in place. There was mild narrowing of the left origin superficial femoral artery and the left profunda femoral artery was widely patent. The right common femoral, profunda and superficial femoral arteries were widely patent. The right popliteal artery was widely patent. The patient had a trifurcation runoff of the anterior tibial, peroneal and posterior tibial arteries. These came off from a common trunk. The anterior tibial artery had some mild disease but does not appear to be flow-limiting right after its origin. The patient did have runoff into the dorsalis pedis at the level of the foot. The right peroneal artery occluded shortly after takeoff. The right posterior tibial artery was patent with a few areas of short segment stenoses along its length, but below the level of the ankle medial and lateral plantar artery were not in continuity and the vessels in the foot from the PT were diminutive. CONCLUSIONS In summary, the patient had good inflow and outflow with runoff through a single-vessel anterior tibial artery and dorsalis pedis artery to the level of the foot. DO JACOB Rainey/MITCH /1:20 PM /3:18 PM
[2016-09-14] MEDS ORDERED: LIDOCAINE HCL 2% 50 ML VIAL ONE (20:20)
[2016-09-14] MEDS ORDERED: BUPIVACAINE HCL PF 0.5% 30 ML VIAL ONE (20:20)
[2016-09-14] MEDS: ATORVASTATIN 80 MG TAB PO SCH (20:27)
--- NOTE | 2016-09-14 20:44 | HHI.PR ---
Immediate Post Op Note Procedure Date: Sep 14, 2016 Pre Op Diagnosis: osteomyelitis R 5th toe and metatarsal head Post Op Diagnosis: same Surgeon: Dorothea Grimes DPM Hotel Engineer(s): staff Procedure: Right partial 5th ray amputation Findings: Consistent with diagnosis. R lateral 5th met head area with necrotic tissue. Racquet incision made to remove 5th toe down to midshaft 5th metatarsal area and bone cut at this level. Bone sent from residual 5th metatarsal as specimen for bone biopsy. Culture taken of wound. All necrotic tissue removed. No purulence noted. Wound primarily closed. Mild bleeding noted, oozing only, upon closure. No tourniquet utilized. Dressing consisting of xeroform, 4x4, abd, soft roll, lea weightbearing to heel only RLE. Complications: none Specimen(s) removed: 1. partial 5th ray R foot 2. culture R foot 3. bone biopsy R residual 5th metatarsal Estimated blood loss: minimal, 10mL Anesthesia: General Drains: None IVF Tourniquet time (min at mmHg) n/a Patient to: PACU Patient Condition: Good Date/Time of Procedure: SEE SURGICAL CARE RECORD Dorothea Grimes DPM Sep 14, 2016 20:44
[2016-09-14] MEDS ORDERED: DO NOT ADM ANY ANTICOAGULANT DRUGS PRN (21:50)
[2016-09-14] MEDS ORDERED: MORPHINE SULFATE 4 MG/ML INJ ONE (22:06)
[2016-09-14] MEDS ORDERED: fentaNYL CITRATE 250 MCG/5 ML AMP ONE (22:07)
[2016-09-14] MEDS ORDERED: *morphine SULFATE 8 MG/ML PERIprocedure ONLY ONE (22:16)
--- NOTE | 2016-09-14 22:40 | RADRPT ---
EXAM DATE/TIME: 09/14/2016 22:19 [facility] COMPARISON: No previous studies available for comparison. INDICATIONS : Post op right 5th digit amputation MEDICAL HISTORY : Hypertension. Diabetes mellitus type 2. SURGICAL HISTORY : None. ENCOUNTER: Initial ACUITY: 1 day PAIN SCORE: 5/10 LOCATION: Right 5th digit FINDINGS: Three view examination of the right foot demonstrates amputation of the right fifth toe and distal ri ght fifth metatarsal. Vascular calcifications present. No complications identified.CONCLUSION: 1. Amputation of right fifth toe and distal right fifth metatarsal. Hector Pacheco MD on September 14, 2016 at 22:38 Board Certified Radiologist. This report was verified electronically.
[2016-09-15] VITALS (25 sets, daily range): BP systolic 139–161; BP diastolic 66–84; PULSE 70–82; RESP 18–19; TEMP 98–98.6; O2SAT 92–96
[2016-09-15] MEDS: ACETAMINOPHEN/HYDROcodone 325 MG/5 MG TAB PO PRN ×5 (03:54→21:21)
[2016-09-15] MEDS: glyBURIDE 5 MG TAB PO SCH ×2 (06:46→16:20)
[2016-09-15] MEDS: INSULIN ASPART SUPPLEMENTAL SCALE SQ SCH ×4 (06:47→22:18)
[2016-09-15] MEDS: LISINOPRIL 20 MG TAB PO SCH ×2 (08:24→22:16)
[2016-09-15] MEDS: DOCUSATE SODIUM 50 MG/SENNA 8.6 MG TAB PO SCH ×2 (08:24→21:22)
[2016-09-15] MEDS: HYDROCHLOROTHIAZIDE 25 MG TAB PO SCH (08:24)
[2016-09-15] MEDS: LACTOBACILLUS ACIDOPHILUS TAB PO SCH (08:24)
--- NOTE | 2016-09-15 09:22 | HHI.PR ---
Subjective Remarks feels tired from the surgeries yesterday. Objective Vitals heart reg lung cta abd s/nt ext right foot bandaged. Vital Signs Date Time Temp Pulse Resp B/P Pulse Ox O2 Delivery O2 Flow Rate FiO2 09/15/16 06:31 75 09/15/16 05:18 73 09/15/16 04:00 74 09/15/16 03:27 98.4 72 18 150/82 95 09/15/16 03:00 79 09/15/16 02:00 80 09/15/16 01:00 80 09/15/16 00:00 76 09/14/16 23:39 98.4 76 16 160/58 95 09/14/16 23:00 79 09/14/16 22:25 98.3 76 22 168/86 96 Nasal Cannula 3 09/14/16 22:15 77 20 174/81 95 Nasal Cannula 3 09/14/16 22:00 78 18 178/83 94 Nasal Cannula 3 09/14/16 21:50 98.4 80 20 187/86 97 Nasal Cannula 3 09/14/16 20:00 72 09/14/16 19:32 98.2 71 18 166/92 94 09/14/16 19:00 70 09/14/16 18:06 69 09/14/16 17:04 85 09/14/16 16:17 18 09/14/16 16:17 18 09/14/16 16:08 66 09/14/16 16:08 98.6 71 18 176/94 97 09/14/16 13:29 96 Room Air 09/14/16 12:00 95.8 62 12 149/66 94 09/14/16 09/14/16 09/15/16 14:59 22:59 06:59 Intake Total 900 ml 1108 ml Output Total 5 ml 680 ml Balance 895 ml 428 ml Intake Oral 100 ml 461 ml IV Total 647 ml Other 800 ml Output Urine Total 680 ml Estimated Blood Loss 5 ml # Bowel Movements 0 Result Diagram: 09/12/16 1145 09/13/16 1811 Imaging Last Impressions Foot MRI 09/12/16 0000 Signed Impressions: Service Date/Time: Monday, September 12, 2016 15:53 - CONCLUSION: Diffuse cellulitis involving the right fifth toe as well as some edema and enhancement of the head of the right fifth metatarsal as well as the right fifth phalanges raising the possibility of osteomyelitis. Tagged white blood cell scan may be helpful for confirmation of osteomyelitis if clinically indicated. No deep soft tissue abscess is noted. Otis Pryor MD Aorta w/Runoff CTA 09/12/16 0000 Signed Impressions: Service Date/Time: Monday, September 12, 2016 15:24 - CONCLUSION: 1. No significant iliac occlusive disease or inflow stenosis. 2. Progressive outflow disease with tandem [id number] stenoses of the distal SFA and popliteal arteries on the right and continued diffuse runoff disease. Patient may benefit from limb salvage outflow intervention. 3. Diffusely diseased 3 vessel runoff on the right. Interval left below-knee amputation. 4. Progressive visceral artery stenoses as above. 5. Redemonstration of prominent bilateral perinephric stranding and intermediate density masslike collections the right skin unchanged from August [address] CT scan. Differential considerations include inflammatory change/collections versus renal lymphoma although unlikely given interval stability. Herbert Das MD A/P Problem List: (1) Right foot ulcer Status: Acute Plan: - Pt is 56 yo with DM and PAD who presented with a right foot ulceration/ swelling plantar and right 5th digit - MRI foot (09/12) --> Diffuse cellulitis involving the right fifth toe as well as some edema and enhancement of the head of the right fifth metatarsal as well as the right fifth phalanges raising the possibility of osteomyelitis. No deep soft tissue abscess is noted. - s/p angiogram with good flow on 09/14. Also amputation of right 5th toe and partial ray amputation with necrotic head. d/c when ok with podiatry. (2) S/P BKA (below knee amputation) Status: Chronic (3) DM (diabetes mellitus) Status: Chronic Plan: - NovoLog SSI -resume meds upon d/c (4) HTN (hypertension) Status: Chronic Plan: - Home meds continued Problem Qualifiers (1) Right foot ulcer: Qualified Code: L97.519 - Right foot ulcer, with unspecified severity (2) S/P BKA (below knee amputation): Qualified Code: Z89.512 - S/P BKA (below knee amputation), left Abhinav Coleman MD Sep 15, 2016 09:22
[2016-09-15] MEDS: SODIUM CHLOR 0.9% 1000 ML INJ 1,000 ML IV SCH (11:29)
[2016-09-15] MEDS: cefTRIAXone INJ 2,000 MG in SODIUM CHLORIDE 0.9% INJ 100 ML IV SCH (11:37)
[2016-09-15] MEDS ORDERED: SODIUM CHLORIDE FLUSH PRN IV FLUSH (11:45)
[2016-09-15] MEDS: MORPHINE SULFATE 4 MG/ML INJ IV PUSH PRN ×2 (15:19→19:24)
--- NOTE | 2016-09-15 18:30 | PD.POD ---
Past Med/Surg/Social History Past Surgical History Gastrointestinal: DENIES HX OF: Colectomy, total Breast: DENIES HX OF: Mastectomy, bilateral, Mastectomy, left, Mastectomy, right Social History Smoking Status: Former Smoker Objective Vital Signs Vital Signs Date Time Temp Pulse Resp B/P Pulse Ox O2 Delivery O2 Flow Rate FiO2 09/15/16 18:00 80 09/15/16 17:00 70 09/15/16 16:00 70 09/15/16 15:13 98.0 73 18 139/66 96 09/15/16 15:13 76 09/15/16 14:09 74 09/15/16 13:20 71 09/15/16 12:31 18 09/15/16 12:01 82 09/15/16 11:48 98.4 74 18 142/72 94 09/15/16 11:48 76 09/15/16 10:07 81 09/15/16 09:41 73 09/15/16 08:00 76 09/15/16 08:00 98.0 73 18 148/69 96 09/15/16 06:31 75 09/15/16 05:18 73 09/15/16 04:00 74 09/15/16 03:27 98.4 72 18 150/82 95 09/15/16 03:00 79 09/15/16 02:00 80 09/15/16 01:00 80 09/15/16 00:00 76 09/14/16 23:39 98.4 76 16 160/58 95 09/14/16 23:00 79 09/14/16 22:25 98.3 76 22 168/86 96 Nasal Cannula 3 09/14/16 22:15 77 20 174/81 95 Nasal Cannula 3 09/14/16 22:00 78 18 178/83 94 Nasal Cannula 3 09/14/16 21:50 98.4 80 20 187/86 97 Nasal Cannula 3 09/14/16 20:00 72 09/14/16 19:32 98.2 71 18 166/92 94 09/14/16 19:00 70 Coded Allergies: No Known Allergies (Unverified , 09/02/16) Physical Exam Remarks bandage intact, clean and dry Assessment & Plan A/P s/p R partial 5th ray amputation 09/14/16 [place] Continue no weight to front of R foot with walker for assistance. Ok to d/c tomorrow and follow up next in [facility] for dressing change Keep bandage clean, dry, intact Dorothea Grimes DPM Sep 15, 2016 18:30
[2016-09-15] MEDS: ATORVASTATIN 80 MG TAB PO SCH (21:19)
[2016-09-15] MEDS: SODIUM CHLORIDE FLUSH BID IV FLUSH SCH (21:23)
[2016-09-16] VITALS (10 sets, daily range): BP systolic 151–152; BP diastolic 70–81; PULSE 67–81; RESP 18; TEMP 98.2–98.3; O2SAT 93–94
[2016-09-16] MEDS: MORPHINE SULFATE 4 MG/ML INJ IV PUSH PRN ×2 (03:24→09:04)
[2016-09-16] MEDS: ACETAMINOPHEN/HYDROcodone 325 MG/5 MG TAB PO PRN ×2 (04:33→07:45)
[2016-09-16] MEDS: glyBURIDE 5 MG TAB PO SCH (06:51)
[2016-09-16] MEDS: INSULIN ASPART SUPPLEMENTAL SCALE SQ SCH (06:52)
[2016-09-16] MEDS ORDERED: NORC5TAB PO (07:13)
--- NOTE | 2016-09-16 07:14 | HHI.DCPOC ---
Discharge Care Plan Diagnosis: (1) Right foot ulcer (2) Osteomyelitis Goals to Promote Your Health * To prevent worsening of your condition and complications * To maintain your health at the optimal level Directions to Meet Your Goals Take your medications as prescribed Follow your dietary instruction Follow activity as directed Keep your appointments as scheduled Take your immunizations and boosters as scheduled If your symptoms worsen call your PCP, if no PCP go to Urgent Care Center or Emergency Room Smoking is Dangerous to Your Health. Avoid second hand smoke Call the 24-hour hour crisis hotline for domestic abuse at Abhinav Coleman MD Sep 16, 2016 07:14
[2016-09-16] MEDS: DOCUSATE SODIUM 50 MG/SENNA 8.6 MG TAB PO SCH (07:44)
[2016-09-16] MEDS: HYDROCHLOROTHIAZIDE 25 MG TAB PO SCH (07:44)
[2016-09-16] MEDS: LISINOPRIL 20 MG TAB PO SCH (07:44)
[2016-09-16] MEDS: LACTOBACILLUS ACIDOPHILUS TAB PO SCH (07:44)
[2016-09-16] MEDS: SODIUM CHLORIDE FLUSH BID IV FLUSH SCH (07:45)
[2016-09-16] MEDS ORDERED: WALKER WHEELS/F1 MIS (09:24)
--- NOTE | 2016-09-16 09:26 | HHI.DS ---
Discharge Summary Admission Date Sep 12, 2016 at 13:02 Discharge Date: Sep 16, 2016 Admitting Diagnosis right foot ulcer, cellulitis, peripheral vascular disease (1) Right foot ulcer Diagnosis: Principal (2) S/P BKA (below knee amputation) Diagnosis: Secondary (3) DM (diabetes mellitus) Diagnosis: Secondary (4) HTN (hypertension) Diagnosis: Secondary Brief History Pt is 56 yo with dm 2 and left bka due to pad. About 2 weeks ago pt says he worse new shoes and developed some irritation of the the right foot lat/plantar area. Seen in ED and 09/01 mri neg for osteo and given clinda. seen by podiatry and ultimately the ulceration/ swelling progressed. podiatry swabbed the area and enterobacter grew from the cx. Sent back to ED for further evaluation today by podiatry. consultation with vascular and sent for cta runoff and mri. rocephin given in ED. CBC/BMP: 09/12/16 1145 09/13/16 1811 Significant Findings Laboratory Tests Test 09/13/16 18:11 Sodium Level 135 MEQ/L (136-145) Blood Urea Nitrogen 22 MG/DL (7-18) Estimat Glomerular Filtration 71 ML/MIN (>89) Rate Random Glucose 204 MG/DL (74-106) Hospital Course (1) Right foot ulcer - Pt is 56 yo with DM and PAD who presented with a right foot ulceration/ swelling plantar and right 5th digit - MRI foot (09/12) --> Diffuse cellulitis involving the right fifth toe as well as some edema and enhancement of the head of the right fifth metatarsal as well as the right fifth phalanges raising the possibility of osteomyelitis. No deep soft tissue abscess is noted. - s/p angiogram with good flow on 09/14. Also amputation of right 5th toe and partial ray amputation with necrotic head. f/u podiatry this week for wound recheck. (2) S/P BKA (below knee amputation) Status: Chronic (3) DM (diabetes mellitus) Status: Chronic (4) HTN (hypertension) Status: Chronic Pt Condition on Discharge: Stable Discharge Disposition: Discharge Home Discharge Instructions DIET: Follow Instructions for: Diabetic Diet Activities you can perform: See Additionl Instruction Other Activity Instructions: weight bear on right heel only. Follow up Referrals: Podiatry - 09/20/16 with [place],Hilaree DPM New Medications: Walker with Front Wheels (Walker with Front Wheels) 1 Mis Mis 1 EA .ROUTE DIRECTED #1 Ref 0 EA Changed Medications: Hydrocodone-Acetaminophen (Fishtail) 5-325 mg Tab 1 TAB PO Q4HR PRN PAIN #30 Ref 0 TAB (Changed from: Q6H; 12) Continued Medications: Albiglutide 4-Pack Inj (Tanzeum 4-Pack Inj) 50 Mg Pfpen 50 MG SQ Q7D #4 PEN Atorvastatin (Atorvastatin) 80 Mg Tab 80 MG PO HS Cholesterol Management #30 Ref 0 TAB Cholecalciferol (Vitamin D) 2,000 Unit Tab 2000 UNITS PO DAILY Empagliflozin (Jardiance) 25 Mg Tab 25 MG PO DAILY Blood Sugar Management #30 Ref 0 TAB Fish Oil-Cholecalciferol (Fish Oil + D3) 1,200-1,000 Mg-Unit Cap 1 CAP PO DAILY Nutritional Supplement #30 Ref 0 CAP Glyburide (Glyburide) 5 Mg Tab 5 MG PO BID Take with meals at the same time each day Blood Sugar Management # 60 Ref 0 TAB Hydrochlorothiazide (Hydrochlorothiazide) 25 Mg Tab 25 MG PO DAILY #30 TAB Insulin Aspart Inj (Novolog Inj) 1,000 Unit/10 Ml Vial 0 SQ DIRECTED Sliding Scale as directed. Blood Sugar Management #10 Ref 0 ML Insulin Degludec Inj (Tresiba Flextouch Pen Inj) 300 unit/3 ML Pen 60 UNITS SQ DAILY Blood Sugar Management #15 Ref 0 ML Lactobacillus Acidophilus (Probiotic) 1 Cap Cap 1 CAP PO DAILY Nutritional Supplement #90 Ref 0 CAP Lisinopril (Lisinopril) 20 Mg Tab 20 MG PO BID #30 Ref 0 TAB Metformin (Metformin) 1,000 Mg Tab 1000 MG PO BIDPC With meals Blood Sugar Management #60 Ref 0 TAB Discontinued Medications: Ciprofloxacin (Cipro) 500 Mg Tab 500 MG PO BID Infection Days 7 Ref 0 TAB Abhinav Coleman MD Sep 16, 2016 09:26
[2016-09-16] MEDS ORDERED: LACTULOSE SYRUP 20 GM/30 ML CUP PO PRN (10:00)
--- NOTE | 2016-09-20 06:58 | MP ---
cc: DOROTHEA BEE DPM DATE OF SURGERY 09/14/2016 DATE OF 1960 INDICATIONS The patient is a 56-year-old male who presented with gangrenous changes to the right fifth toe and fifth metatarsal area. MRI showed consistent findings with osteomyelitis. I discussed with the patient his options for treatment and he consented to undergo partial fifth ray amputation right foot in order to remove all of the infected bone with a bone biopsy to confirm whether or not all of the infection was removed. PROCEDURE He was seen by myself, nursing staff and Anesthesia where the correct patient side and site were all confirmed to be correct in the right foot. He was then taken back to the surgical suite, placed in supine position where the right foot was prepped and draped in normal sterile fashion. After timeouts were performed and as per hospital protocol, a racket incision was made to remove the fifth toe down to the mid shaft fifth metatarsal area due to the lateral aspect of the fifth metatarsal head having significant necrotic tissue. The bone was cut at the level of the mid shaft fifth metatarsal. The bone from the distal metatarsal and toe were sent as a specimen for pathology followed by another piece of bone from the remnant proximal portion of the metatarsals sent for a bone biopsy to determine if all known infected bone was removed. Following this, the area was copiously irrigated and the wound examined and found to have no further necrotic tissue. A culture was also taken of the wound prior to closure. The wound was closed primarily due to there being no purulence or necrotic tissue present using 2-0 nylon suture. A dressing consisting of Xeroform, 4x4, ABD, Sof-Rol and Jevon was applied to the right lower extremity. He tolerated the procedure and anesthesia well without complications and was taken back to PACU with vital signs stable and vascular status intact to the remainder of the right foot. He will be non-weightbearing to the forefoot, but he can be weightbearing to the heel only on the right foot in a surgical shoe and we will continue to monitor the bone biopsy results to determine long-term versus short-term IV antibiotics. Short operative note. SURGEON Dorothea Bee MD DOUPER Staff PREOPERATIVE DIAGNOSIS Osteomyelitis right fifth toe and metatarsal head POSTOPERATIVE DIAGNOSIS Osteomyelitis right fifth toe and metatarsal head PROCEDURE Partial fifth ray amputation right foot PATHOLOGY 1. Culture right foot. 2. Bone right residual fifth metatarsal. 3. Right fifth toe and distal metatarsal to pathology. ESTIMATED BLOOD LOSS Minimal COMPLICATIONS None CONDITION Stable to PACU. ANESTHESIA General DISPOSITION Weightbearing as tolerated to heel only right lower extremity. We will continue to follow bone biopsy results to determine long-term versus short-term IV antibiotics. Dorothea MARQUEZ /4:49 PM /6:49 AM
== END 2016-09-16 11:01 | disposition home or self-care (01) | DRG 617 ==
LOC: NEPC 09:28 → NEDA 13:02 → N07A 16:36 → HCIS 09-14 13:17 → HCIN 09-14 15:19
PROVIDERS: ADMIT Hospitalist; ATTEND Hospitalist
PROC: B4101ZZ Fluoroscopy of Abdominal Aorta using Low Osmolar Contrast (ICD-10-PCS; 2016-09-14)
PROC: B41F1ZZ Fluoroscopy of Right Lower Extremity Arteries using Low Osmolar Contrast (ICD-10-PCS; 2016-09-14)
PROC: 0Y6X0Z0 Detachment at Right 5th Toe, Complete, Open Approach (ICD-10-PCS; principal; 2016-09-14 12:00)
PROC: 0QBN0ZX Excision of Right Metatarsal, Open Approach, Diagnostic (ICD-10-PCS; 2016-09-14 12:00)
DX: E11.69 Type 2 diabetes mellitus with other specified complication (principal); L97.419 Non-pressure chronic ulcer of right heel and midfoot with unspecified severity; E11.51 Type 2 diabetes mellitus with diabetic peripheral angiopathy without gangrene; L03.115 Cellulitis of right lower limb; M86.8X7 Other osteomyelitis, ankle and foot; E11.621 Type 2 diabetes mellitus with foot ulcer; L97.519 Non-pressure chronic ulcer of other part of right foot with unspecified severity; I10 Essential (primary) hypertension; B95.2 Enterococcus as the cause of diseases classified elsewhere; L03.031 Cellulitis of right toe; E78.5 Hyperlipidemia, unspecified; Z79.4 Long term (current) use of insulin; Z89.512 Acquired absence of left leg below knee; Z79.84 Long term (current) use of oral hypoglycemic drugs; Z87.891 Personal history of nicotine dependence
CPT/HCPCS: 36246; 73630; 73720; 75625; 75635; 75710; 80048; 80053; 82948; 83605; 85025; 85652; 86140; 87015; 87040; 87070; 87102; 87116; 87205; 87206; 88304; 88305; 88307; 88311; 93922; 96361; 96374; 96375; A9579; C1769; C1893; J0696; J1644; J1815; J2250; J2270; J2405; J2710; J3010; J7030; L3260; Q9967

== ENCOUNTER 2016-10-08 11:53 | Inpatient (IN) | payer OTHER ==
[~2016-10-08] VITALS: Ht 188 cm; Wt 126.0 kg
[2016-10-08] VITALS (8 sets, daily range): BP systolic 142–221; BP diastolic 69–109; PULSE 71–86; RESP 16–24; TEMP 97.7–98.2; O2SAT 96–98
[~2016-10-08 11:53] MED LIST changes: -CLIN1CAP5 PO; -OMEG1000; +WALKER WHEELS/F1 MIS
[2016-10-08] MEDS ORDERED: GADODIAMIDE PF 287 MG/ML 5 ML VIAL (for RAD MRI) IVCONTRAST ONE (11:54)
[2016-10-08] MEDS ORDERED: HYDROmorphone HCL PF 1 MG/ML VIAL IVS ONE (13:30)
[2016-10-08] MEDS ORDERED: ONDANSETRON HCL 4 MG/2 ML VIAL IVP ONE (13:30)
[2016-10-08 13:39] LABS: AUTOMATED NEUTROPHIL # 10.4 TH/MM3 (1.8-7.7); BASOPHIL % 0.3 % (0.0-2.0); EOSINOPHIL # 0.2 TH/MM3 (0-0.4); EOSINOPHIL % 1.6 % (0.0-4.0); HEMATOCRIT 39.4 % (39.0-51.0); HEMO FLAGS DIFF FINAL; LYMPH % 15.7 % (9.0-44.0); LYMPHOCYTE # 2.1 TH/MM3 (1.0-4.8); MEAN CELL VOLUME 89.8 FL (80.0-100.0); MEAN CORPUSCULAR HEMOGLOBIN 30.2 PG (27.0-34.0); MEAN CORPUSCULAR HGB CONC 33.6 % (32.0-36.0); MONO % 5.8 % (0.0-8.0); NEUT % 76.6 % (16.0-70.0); PLATELET COUNT 304 TH/MM3 (150-450); RED BLOOD COUNT 4.39 MIL/MM3 (4.50-5.90); RED CELL DISTRIBUTION WIDTH 13.9 % (11.6-17.2); WHITE BLOOD COUNT 13.6 TH/MM3 (4.0-11.0)
[2016-10-08 13:49] LABS: APTT (PATIENT) 28.5 SEC (24.3-30.1); INTERNATIONAL NORMALIZED RATIO 0.9 RATIO; PROTHROMBIN TIME - PATIENT 9.7 SEC (9.8-11.6)
[2016-10-08 13:58] LABS: ALT (GPT) 22 U/L (12-78); ANION GAP 8 MEQ/L (5-15); AST (GOT) 12 U/L (15-37); BICARBONATE 24.9 MEQ/L (21.0-32.0); BLOOD UREA NITROGEN 22 MG/DL (7-18); CHLORIDE 104 MEQ/L (98-107); GLOMERULAR FILTRATION RATE 80 ML/MIN (>89); POTASSIUM 5.3 MEQ/L (3.5-5.1); SODIUM (NA) 137 MEQ/L (136-145)
[2016-10-08 14:01] LABS: ALKALINE PHOSPHATASE 90 U/L (45-117); TOTAL BILIRUBIN ADULT 0.2 MG/DL (0.2-1.0)
[2016-10-08] MEDS ORDERED: SODIUM CHLOR 0.9% 1000 ML INJ 1,000 ML IV SCH ×2 (14:45→21:30)
--- NOTE | 2016-10-08 15:37 | PD ---
HPI Chief Complaint: Skin Problem Time Seen by Provider: 13:03 Travel History International Travel<30 days: No Contact w/Intl Traveler<30days: No Traveled to known affect area: No History of Present Illness HPI This is a 56-year-old male with a history of diabetes mellitus, coronary artery disease, healing ulcer to the right foot, who presents here at the request of Dr. Osvaldo stockton for admission to the medicine service. The patient has been seen Dr. Shaggy Rose with podiatry for his foot wound. It has been getting worse and he was seen at the wound clinic by Dr. stockton. Dr. stockton discussed the case with Dr. Rose and Dr. Abhinav Coleman. They wish for him to be admitted to the hospital and have debridement of the foot and possible wound VAC placement. The patient denies any fevers, chills. He denies any nausea vomiting. He does report pain in his right foot. 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 There are no other complaints time my examination. PFSH Past Medical History Cancer: No Cardiovascular Problems: Yes High Cholesterol: Yes Chest Pain: No Congestive Heart Failure: No Diabetes: Yes Diminished Hearing: No Endocrine: Yes Gastrointestinal Disorders: No Glaucoma: No Genitourinary: No Hepatitis: No Hiatal Hernia: No Hypertension: Yes Immune Disorder: No Musculoskeletal: No Neurologic: No Psychiatric: No Reproductive: No Respiratory: No Integumentary: Yes (WOUND ON RIGHT HEEL) Sickle Cell Disease: No Thyroid Disease: No Past Surgical History Abdominal Surgery: No AICD: No Cardiac Surgery: No Ear Surgery: No Eye Surgery: Yes (DETACHED RETINA ) Joint Replacement: No Oral Surgery: No Pacemaker: No Thoracic Surgery: No Other Surgery: Yes Social History Alcohol Use: Yes (OCCASSIONAL) Tobacco Use: No Substance Use: No Allergies-Medications (Allergen,Severity, Reaction): Coded Allergies: No Known Allergies (Unverified , 10/08/16) Reported Meds & Prescriptions Reported Meds & Active Scripts Active Walker with Front Wheels (Device) 1 Mis Mis 1 Ea .ROUTE DIRECTED Mcloud (Hydrocodone-Acetaminophen) 5-325 mg Tab 1 Tab PO Q4HR PRN Reported Probiotic (Lactobacillus Acidophilus) 1 Cap Cap 1 Cap PO DAILY Fish Oil + D3 (Fish Oil-Cholecalciferol) 1,200-1,000 Mg-Unit Cap 1 Cap PO DAILY Tresiba Flextouch Pen Inj (Insulin Degludec Inj) 300 unit/3 ML Pen 60 Units SQ DAILY Vitamin D (Cholecalciferol) 2,000 Unit Tab 2,000 Units PO DAILY Metformin (Metformin HCl) 1,000 Mg Tab 1,000 Mg PO BIDPC With meals Lisinopril 20 Mg Tab 20 Mg PO BID Novolog Inj (Insulin Aspart) 1,000 Unit/10 Ml Vial 0 SQ DIRECTED Sliding Scale as directed. Hydrochlorothiazide 25 Mg Tab 25 Mg PO DAILY Glyburide 5 Mg Tab 5 Mg PO BID Take with meals at the same time each day Jardiance (Empagliflozin) 25 Mg Tab 25 Mg PO DAILY Atorvastatin (Atorvastatin Calcium) 80 Mg Tab 80 Mg PO HS Tanzeum 4-Pack Inj (Albiglutide) 50 Mg Pfpen 50 Mg SQ Q7D Review of Systems Except as stated in HPI: all other systems reviewed are Neg General / Constitutional: No: Fever, Chills HENT: No: Headaches, Lightheadedness Cardiovascular: No: Chest Pain or Discomfort, Palpitations Respiratory: No: Cough, Shortness of Breath Gastrointestinal: No: Nausea, Vomiting, Abdominal Pain Musculoskeletal: Positive: Pain (right foot where there is an open wound), No: Weakness, Edema Skin: Positive Lesions (right ulceration of the lateral right foot) Neurologic: No: Weakness, Dizziness Physical Exam Narrative GENERAL: Well developed well-nourished male in no acute rest her distress SKIN: Focused skin assessment warm/dry. HEAD: Atraumatic. Normocephalic. EYES: Pupils equal and round. No scleral icterus. No injection or drainage. ENT: No nasal bleeding or discharge. Mucous membranes pink and moist. NECK: Trachea midline. No JVD. CARDIOVASCULAR: Regular rate and rhythm. No murmur appreciated. RESPIRATORY: No accessory muscle use. Clear to auscultation. Breath sounds equal bilaterally. GASTROINTESTINAL: Abdomen soft, non-tender, nondistended. Hepatic and splenic margins not palpable. MUSCULOSKELETAL: Previous left BKA. On examination patient's right foot he has a linear ulceration open wound to the right lateral foot. There is exposed bone. There is no serous or purulent drainage noted. There is necrotic looking skin at the wound site. NEUROLOGICAL: Awake and alert. No obvious cranial nerve deficits. Motor grossly within normal limits. Normal speech. PSYCHIATRIC: Appropriate mood and affect; insight and judgment normal. Data Data Last Documented VS Vital Signs Date Time Temp Pulse Resp B/P (MAP) Pulse Ox O2 Delivery O2 Flow Rate FiO2 10/08/16 14:31 97.9 73 17 146/78 (100) 98 Room Air Orders Orders Complete Blood Count With Diff (10/08/16 13:03) Comprehensive Metabolic Panel (10/08/16 13:03) Prothrombin Time / Inr (Pt) (10/08/16 13:03) Act Partial Throm Time (Ptt) (10/08/16 13:03) Iv Access Insert/Monitor (10/08/16 13:03) Ecg Monitoring (10/08/16 13:03) Oximetry (10/08/16 13:03) Blood Culture (10/08/16 13:06) Ondansetron Inj (Zofran Inj) (10/08/16 13:30) Hydromorphone Pf Inj (Dilaudid Pf Inj) (10/08/16 13:30) Sodium Chlor 0.9% 1000 Ml Inj (Ns 1000 M (10/08/16 14:45) Labs Laboratory Tests Test 10/08/16 13:10 White Blood Count 13.6 TH/MM3 Red Blood Count 4.39 MIL/MM3 Hemoglobin 13.2 GM/DL Hematocrit 39.4 % Mean Corpuscular Volume 89.8 FL Mean Corpuscular Hemoglobin 30.2 PG Mean Corpuscular Hemoglobin Concent 33.6 % Red Cell Distribution Width 13.9 % Platelet Count 304 TH/MM3 Mean Platelet Volume 9.0 FL Neutrophils (%) (Auto) 76.6 % Lymphocytes (%) (Auto) 15.7 % Monocytes (%) (Auto) 5.8 % Eosinophils (%) (Auto) 1.6 % Basophils (%) (Auto) 0.3 % Neutrophils # (Auto) 10.4 TH/MM3 Lymphocytes # (Auto) 2.1 TH/MM3 Monocytes # (Auto) 0.8 TH/MM3 Eosinophils # (Auto) 0.2 TH/MM3 Basophils # (Auto) 0.0 TH/MM3 CBC Comment DIFF FINAL Differential Comment Prothrombin Time 9.7 SEC Prothromb Time International Ratio 0.9 RATIO Activated Partial Thromboplast Time 28.5 SEC Blood Urea Nitrogen 22 MG/DL Creatinine 0.97 MG/DL Random Glucose 94 MG/DL Total Protein 8.6 GM/DL Albumin 3.4 GM/DL Calcium Level 9.4 MG/DL Alkaline Phosphatase 90 U/L Aspartate Amino Transf (AST/SGOT) 12 U/L Alanine Aminotransferase (ALT/SGPT) 22 U/L Total Bilirubin 0.2 MG/DL Sodium Level 137 MEQ/L Potassium Level 5.3 MEQ/L Chloride Level 104 MEQ/L Carbon Dioxide Level 24.9 MEQ/L Anion Gap 8 MEQ/L Estimat Glomerular Filtration Rate 80 ML/MIN MDM Medical Decision Making Medical Screen Exam Complete: Yes Emergency Medical Condition: Yes Differential Diagnosis Worsening right diabetic foot ulcer versus osteomyelitis versus poor perfusion/ peripheral artery disease Narrative Course 56-year-old male presents today with complaints of worsening right diabetic/ peripheral artery disease ulcer of the foot. The patient was seen and evaluated by Dr. Osvaldo stockton at the wound clinic today. He sent him here for admission. The case was discussed with Dr. Abhinav Coleman who will admit the patient to his service. The patient was noted to be slightly dehydrated. He has had IVD fluid started. Antibiotics will be started by Dr. Abhinav Coleman. He has had blood cultures ordered. Diagnosis Primary Impression: Right foot ulcer Additional Impressions: DM (diabetes mellitus) HTN (hypertension) probable osteomyelitis Admitting Information Admitting Physician Requests: Admit Dino Gallardo MD Oct 08, 2016 15:37
[2016-10-08] MEDS ORDERED: ACETAMINOPHEN 325 MG TAB PO PRN (16:00)
[2016-10-08] MEDS ORDERED: ONDANSETRON HCL 4 MG/2 ML VIAL IV PRN (16:00)
[2016-10-08] MEDS ORDERED: GLUCAGON 1 MG/ML VIAL OTHER PRN (16:15)
[2016-10-08] MEDS ORDERED: DEXTROSE 50% IN WATER 50 ML VIAL(D50) IV PUSH PRN (16:15)
--- NOTE | 2016-10-08 17:03 | HHI.HP ---
HPI Service [facility] Hospitalists Primary Care Physician Humaira Boyer MD Admission Diagnosis Right foot nonhealing wound Chief Complaint: Right foot pain Travel History International Travel<30 Days: No Contact w/Intl Traveler <30 Da: No Traveled to Known Affected Are: No History of Present Illness Mr. Coyle is a pleasant 56 y/o WM with type 2 DM, PAD s/p left BKA, who was previously hospitalized in August 2016 for a nonhealing wound to the right lateral foot. Pt had an MRI foot (09/12) which noted diffuse cellulitis involving the right fifth toe as well as some edema and enhancement of the head of the right fifth metatarsal as well as the right fifth phalanges raising the possibility of osteomyelitis. He was seen by podiatry and Vascular surgery during that admission. Pt had an angiogram on 09/14 with noted good flow in the RLE. Pt underwent amputation of right 5th toe and partial ray amputation with necrotic head on 09/[address] Grimes. Pt was discharged on Cipro. He followed up with Dr. Rose as an outpt and states that he was treated with another round of antibiotics, he believes was Clindamycin for 7 days which he just completed yesterday. Last week he had a debridement with Dr. Rose of the right lateral foot wound but this has not been healing well. Pt was sent to see Dr. Osvaldo Redman today for wound care and pt was sent to the ED for admission for podiatry consultation for debridement and possible wound vac placement. Pt reports that he is having some pain in the right foot. Denies any fevers or chills. Blood cultures were drawn in the ED. Review of Systems Constitutional: DENIES: Fever, Chills, Dizziness Eyes: DENIES: Vision loss Ears, nose, mouth, throat: DENIES: Hearing loss Respiratory: DENIES: Cough, Shortness of breath Cardiovascular: DENIES: Chest pain, Palpitations, Lower Extremity Edema Gastrointestinal: DENIES: Abdominal pain, Diarrhea, Nausea, Vomiting Musculoskeletal: COMPLAINS OF: Joint Swelling Integumentary: DENIES: Rash Neurologic: DENIES: Headache Psychiatric: DENIES: Confusion Past Family Social History Past Medical History Diabetes mellitus, type 2 HTN PAD Nonhealing wound, right foot Past Surgical History Left BKA Reported Medications [place] (Hydrocodone-Acetaminophen) 5-325 mg Tab 1 Tab PO Q4HR PRN Fish Oil + D3 (Fish Oil-Cholecalciferol) 1,200-1,000 Mg-Unit Cap 1 Cap PO DAILY Tresiba Flextouch Pen Inj (Insulin Degludec Inj) 300 unit/3 ML Pen 60 Units SQ DAILY Vitamin D (Cholecalciferol) 2,000 Unit Tab 2,000 Units PO DAILY Metformin (Metformin HCl) 1,000 Mg Tab 1,000 Mg PO BIDPC With meals Lisinopril 20 Mg Tab 20 Mg PO BID Novolog Inj (Insulin Aspart) 1,000 Unit/10 Ml Vial 0 SQ DIRECTED Sliding Scale as directed. Hydrochlorothiazide 25 Mg Tab 25 Mg PO DAILY Glyburide 5 Mg Tab 5 Mg PO BID Take with meals at the same time each day Jardiance (Empagliflozin) 25 Mg Tab 25 Mg PO DAILY Atorvastatin (Atorvastatin Calcium) 80 Mg Tab 80 Mg PO HS Tanzeum 4-Pack Inj (Albiglutide) 50 Mg Pfpen 50 Mg SQ Q7D Allergies: Coded Allergies: No Known Allergies (Unverified , 10/08/16) Family History Noncontributory Social History Denies any alcohol, tobacco or illicit drug use Physical Exam Vital Signs Vital Signs Date Time Temp Pulse Resp B/P (MAP) Pulse Ox O2 Delivery O2 Flow Rate FiO2 10/08/16 14:31 97.9 73 17 146/78 (100) 98 Room Air 10/08/16 14:08 18 10/08/16 13:22 97.8 74 18 188/86 (120) 98 Room Air 10/08/16 13:20 18 97 Room Air 10/08/16 13:00 74 18 10/08/16 11:56 97.7 82 24 221/109 (146) 96 Room Air Physical Exam GENERAL: This is a well-nourished, well-developed patient, in no apparent distress. SKIN: Right lateral foot linear wound with some necrotic looking areas of skin, no obvious purulent drainage HEENT: Atraumatic. Normocephalic. No temporal or scalp tenderness. No scleral icterus. Airway patent. NECK: Trachea midline, supple, nontender. CARDIO: Regular. RESP: CTA bilaterally. No wheezes, rales, or rhonchi. ABD: +BS, soft, non-tender, nondistended. EXT: Left BKA, right foot with lateral linear foot wound, approximately 3-4 inches in length along the foot NEURO: Awake and alert. Motor and sensory grossly within normal limits. Normal speech. Laboratory Laboratory Tests Test 10/08/16 13:10 White Blood Count 13.6 Red Blood Count 4.39 Hemoglobin 13.2 Hematocrit 39.4 Mean Corpuscular Volume 89.8 Mean Corpuscular Hemoglobin 30.2 Mean Corpuscular Hemoglobin Concent 33.6 Red Cell Distribution Width 13.9 Platelet Count 304 Mean Platelet Volume 9.0 Neutrophils (%) (Auto) 76.6 Lymphocytes (%) (Auto) 15.7 Monocytes (%) (Auto) 5.8 Eosinophils (%) (Auto) 1.6 Basophils (%) (Auto) 0.3 Neutrophils # (Auto) 10.4 Lymphocytes # (Auto) 2.1 Monocytes # (Auto) 0.8 Eosinophils # (Auto) 0.2 Basophils # (Auto) 0.0 CBC Comment DIFF FINAL Differential Comment Prothrombin Time 9.7 Prothromb Time International Ratio 0.9 Activated Partial Thromboplast Time 28.5 Blood Urea Nitrogen 22 Creatinine 0.97 Random Glucose 94 Total Protein 8.6 Albumin 3.4 Calcium Level 9.4 Alkaline Phosphatase 90 Aspartate Amino Transf (AST/SGOT) 12 Alanine Aminotransferase (ALT/SGPT) 22 Total Bilirubin 0.2 Sodium Level 137 Potassium Level 5.3 Chloride Level 104 Carbon Dioxide Level 24.9 Anion Gap 8 Estimat Glomerular Filtration Rate 80 Date/Time Source Procedure Growth Status 10/08/16 13:05 Blood Peripheral Aerobic Blood Culture Pending Received 10/08/16 13:05 Blood Peripheral Anaerobic Blood Culture Pending Received Result Diagram: 10/08/16 1310 10/08/16 1310 Septic Shock Reassessment Heart: Regular rate and rhythm Lungs: Clear Skin: Warm Caprini VTE Risk Assessment Caprini VTE Risk Assessment: Mod/High Risk (score >= 2) Caprini Risk Assessment Model Point Value = 1 Point Value = 2 Point Value = 3 Point Value = 5 Age 41-60 Minor surgery BMI > 25 kg/m2 Swollen legs Varicose veins or History of unexplained or recurrent spontaneous Oral contraceptives or hormone replacement Sepsis (< 1 month) Serious lung disease, including pneumonia (< 1 month) Abnormal pulmonary function Acute myocardial infarction Congestive heart failure (< 1 month) History of inflammatory bowel disease Medical patient at bed rest Age 61-74 Arthroscopic surgery Major open surgery (> 45 min) Laparoscopic surgery (> 45 min) Malignancy Confined to bed (> 72 hours) Immobilizing plaster cast Central venous access Age >= 75 History of VTE Family history of VTE Factor V Leiden Prothrombin [id number] Lupus anticoagulant Anticardiolipin antibodies Elevated serum homocysteine Heparin-induced thrombocytopenia Other congenital or acquired thrombophilia Stroke (< 1 month) Elective arthroplasty Hip, pelvis, or leg fracture Acute spinal cord injury (< 1 month) Prophylaxis Regimen Total Risk Factor Score Risk Level Prophylaxis Regimen 0-1 Low Early ambulation 2 Moderate Order ONE of the following: *Sequential Compression Device (SCD) *Heparin 5000 units SQ BID 3-4 Higher Order ONE of the following medications: *Heparin 5000 units SQ TID *Enoxaparin/Lovenox 40 mg SQ daily (WT < 150 kg, CrCl > 30 mL/min) *Enoxaparin/Lovenox 30 mg SQ daily (WT < 150 kg, CrCl > 10-29 mL/min) *Enoxaparin/Lovenox 30 mg SQ BID (WT < 150 kg, CrCl > 30 mL/min) AND/OR *Sequential Compression Device (SCD) 5 or more Highest Order ONE of the following medications: *Heparin 5000 units SQ TID (Preferred with Epidurals) *Enoxaparin/Lovenox 40 mg SQ daily (WT < 150 kg, CrCl > 30 mL/min) *Enoxaparin/Lovenox 30 mg SQ daily (WT < 150 kg, CrCl > 10-29 mL/min) *Enoxaparin/Lovenox 30 mg SQ BID (WT < 150 kg, CrCl > 30 mL/min) AND *Sequential Compression Device (SCD) Assessment and Plan Problem List: (1) Non-healing ulcer of foot with necrosis of muscle ICD Codes: L97.503 - Non-pressure chronic ulcer of other part of unspecified foot with necrosis of muscle Plan: - Pt is a 56 y/o WM with type 2 DM, PAD s/p left BKA, who was previously hospitalized in August 2016 for a nonhealing wound to the right lateral foot. Pt had an MRI foot (09/12) which noted diffuse cellulitis involving the right fifth toe as well as some edema and enhancement of the head of the right fifth metatarsal as well as the right fifth phalanges raising the possibility of osteomyelitis. He was seen by podiatry and Vascular surgery and had an angiogram on 09/14 with noted good flow in the RLE. Pt underwent amputation of right 5th toe and partial ray amputation with necrotic head on 09/[address] Grmies. - Pt was discharged on Cipro based on swabs done by podiatry prior to that admission which grew out enterococcus. He followed up with Dr. Rose as an outpt and states that he was treated with another round of antibiotics, he believes was Clindamycin for 7 days which he just completed yesterday. - Last week he had a debridement with Dr. Rose of the right lateral foot wound but this has not been healing well. Pt was sent to see Dr. Redman today for wound care and pt was sent to the ED for admission for podiatry consultation for debridement and possible wound vac placement. - MRI foot - Consult podiatry. Pt reportedly planned for surgical debridement tomorrow. - Start antibiotics with Zosyn - IVF - Pain control PRN - NPO after MN except meds - Supportive care - DVT prophylaxis with Lovenox 40mg x one dose tonight as I am unclear of what time surgery will be tomorrow. (2) DM (diabetes mellitus) ICD Codes: E11.9 - Type 2 diabetes mellitus without complications Status: Chronic Plan: - Hold home meds - NovoLog SSI - Accu checks (3) HTN (hypertension) ICD Codes: I10 - Essential (primary) hypertension Status: Chronic Plan: - Hold Lisinopril due to hyperkalemia - Cont. HCTZ - Repeat labs in AM - Monitor BP (4) Hypertriglyceridemia ICD Codes: E78.1 - Hypertriglyceridemia Status: Acute (5) Obesity ICD Codes: E66.9 - Obesity Status: Acute Assessment and Plan Patient examined. Assessment and plan formulated with Megha Mcfarland PA-C. I agree with the above. nonhealing right foot wound s/p recent partial ray amputation abx and mri to eval for osteo pending. podiatry/vascular consultation. pt also had left bka. Physician Certification 2 Midnight Certification Type: Admission for Inpatient Services Order for Inpatient Services The services are ordered in accordance with Medicare regulations or non- Medicare payer requirements, as applicable. In the case of services not specified as inpatient-only, they are appropriately provided as inpatient services in accordance with the 2-midnight benchmark. days is the estimated time the patient will need to remain in the hospital, assuming treatment plan goals are met and no additional complications. Post-Hospital Plan: Not yet determined Problem Qualifiers (1) Non-healing ulcer of foot with necrosis of muscle: Qualified Codes: L97.513 - Non-pressure chronic ulcer of other part of right foot with necrosis of muscle (2) DM (diabetes mellitus): Megha Mcfarland Oct 08, 2016 17:03 Abhinav Coleman MD Oct 08, 2016 21:27
[2016-10-08] MEDS ORDERED: ENOXAPARIN SODIUM 40 MG/0.4 ML SYRINGE SQ ONE (17:15)
[2016-10-08] MEDS: INSULIN ASPART SUPPLEMENTAL SCALE SQ SCH ×2 (17:26→21:35)
--- NOTE | 2016-10-08 17:33 | RADRPT ---
EXAM DATE/TIME: 10/08/2016 16:39 [facility] COMPARISON: MRI FOOT RIGHT W & W/O CONTRAST, September 12, 2016, 15:53. INDICATIONS : Osteomyelitis. Right fifth metatarsal pain. CONTRAST: 23 cc Omniscan (gadodiamide) IV MEDICAL HISTORY : Hypertension. Diabetes mellitus type 2. SURGICAL HISTORY : Rt foot partial amputation. Left BKA. ENCOUNTER: Subsequent ACUITY: 1 month PAIN SCORE: 9/10 LOCATION: Right foot, fifth digit. TECHNIQUE: Multiplanar, multisequence MRI examination was performed without contrast and after the intravenous a dministration of gadolinium. FINDINGS: BONE/CARTILAGE: There is T2 signal abnormality throughout the proximal and mid shaft of the right remains of the fift h metatarsal. There has been previous amputation of the mid to distal fifth metatarsal and fifth toe. TENDONS: All of the visualized tendons are intact. MISCELLANEOUS: Plantar aponeurosis is intact. Sinus tarsi is within normal limits. POST-CONTRAST: There is enhancement of the soft tissues dorsally and along the plantar aspect consistent with cellul itis.. CONCLUSION: 1. Amputation of the majority of the fifth metatarsal and fifth toe. 2. Osteomyelitis of the remaining proximal and mid fifth metatarsal. Levy Sebastian MD on October 08, 2016 at 17:28 Board Certified Radiologist. This report was verified electronically.
[2016-10-08] MEDS: HYDROmorphone HCL PF 1 MG/ML VIAL IV PUSH PRN (17:42)
[2016-10-08] MEDS: PIPERACIL-TAZO 3.375 GM PREMIX 50 ML IV SCH (17:42)
[2016-10-08] MEDS: ACETAMINOPHEN/HYDROcodone 325 MG/5 MG TAB PO PRN (19:56)
[2016-10-08] MEDS ORDERED: LISINOPRIL 20 MG TAB PO SCH (21:00)
[2016-10-09] VITALS (7 sets, daily range): BP systolic 142–182; BP diastolic 68–86; PULSE 68–76; RESP 16–20; TEMP 97.6–98.4; O2SAT 96–98
[2016-10-09] MEDS: PIPERACIL-TAZO 3.375 GM PREMIX 50 ML IV SCH ×5 (00:17→23:34)
[2016-10-09] MEDS: HYDROmorphone HCL PF 1 MG/ML VIAL IV PUSH PRN ×4 (00:17→23:35)
[2016-10-09] MEDS: ACETAMINOPHEN/HYDROcodone 325 MG/5 MG TAB PO PRN ×5 (00:24→21:48)
[2016-10-09 05:33] LABS: AUTOMATED NEUTROPHIL # 6.3 TH/MM3 (1.8-7.7); BASOPHIL % 0.4 % (0.0-2.0); EOSINOPHIL # 0.2 TH/MM3 (0-0.4); EOSINOPHIL % 2.6 % (0.0-4.0); HEMATOCRIT 34.7 % (39.0-51.0); HEMO FLAGS DIFF FINAL; LYMPH % 24.1 % (9.0-44.0); LYMPHOCYTE # 2.3 TH/MM3 (1.0-4.8); MEAN CELL VOLUME 91.3 FL (80.0-100.0); MEAN CORPUSCULAR HEMOGLOBIN 29.7 PG (27.0-34.0); MEAN CORPUSCULAR HGB CONC 32.5 % (32.0-36.0); MONO % 6.8 % (0.0-8.0); NEUT % 66.1 % (16.0-70.0); PLATELET COUNT 252 TH/MM3 (150-450); RED CELL DISTRIBUTION WIDTH 13.8 % (11.6-17.2); WHITE BLOOD COUNT 9.6 TH/MM3 (4.0-11.0)
[2016-10-09 05:57] LABS: MAGNESIUM 2.5 MG/DL (1.5-2.5); POTASSIUM 5.2 MEQ/L (3.5-5.1)
[2016-10-09] MEDS: INSULIN ASPART SUPPLEMENTAL SCALE SQ SCH ×4 (06:46→20:21)
[2016-10-09] MEDS ORDERED: HYDROCHLOROTHIAZIDE 25 MG TAB PO SCH (09:00)
[2016-10-09] MEDS: HYDROCHLOROTHIAZIDE 25 MG TAB PO SCH (09:23)
[2016-10-09] MEDS ORDERED: DEXT 5%-NACL 0.9% 1000 ML INJ 1,000 ML IV ONE (11:15)
--- NOTE | 2016-10-09 11:32 | HHI.PR ---
Subjective Remarks doing ok. no complaints. Objective Vitals heart reg lung cta abd s/nt ext right foot bandaged. left bka. Vital Signs Date Time Temp Pulse Resp B/P (MAP) Pulse Ox O2 Delivery O2 Flow Rate FiO2 10/09/16 08:33 97.7 69 20 182/84 (116) 97 10/09/16 04:00 98.4 72 18 171/77 (108) 96 10/09/16 00:00 98.2 71 18 171/82 (111) 96 10/08/16 23:00 98.2 71 18 171/82 (111) 96 10/08/16 21:21 10/08/16 21:20 17 10/08/16 21:19 72 17 165/77 (106) 96 Room Air 10/08/16 19:50 76 17 142/69 (93) 98 Room Air 10/08/16 18:12 18 10/08/16 16:00 97.9 76 16 152/81 (104) 98 Room Air 10/08/16 14:31 97.9 73 17 146/78 (100) 98 Room Air 10/08/16 14:08 18 10/08/16 13:22 97.8 74 18 188/86 (120) 98 Room Air 10/08/16 13:20 18 97 Room Air 10/08/16 13:00 74 18 10/08/16 11:56 97.7 82 24 221/109 (146) 96 Room Air Result Diagram: 10/09/16 0405 10/09/16 0405 A/P Problem List: (1) Non-healing ulcer of foot with necrosis of muscle ICD Codes: L97.503 - Non-pressure chronic ulcer of other part of unspecified foot with necrosis of muscle Status: Acute Plan: - Pt is a 56 y/o WM with type 2 DM, PAD s/p left BKA, who was previously hospitalized in August 2016 for a nonhealing wound to the right lateral foot. Pt had an MRI foot (09/12) which noted diffuse cellulitis involving the right fifth toe as well as some edema and enhancement of the head of the right fifth metatarsal as well as the right fifth phalanges raising the possibility of osteomyelitis. He was seen by podiatry and Vascular surgery and had an angiogram on 09/14 with noted good flow in the RLE. Pt underwent amputation of right 5th toe and partial ray amputation with necrotic head on 09/[address] Grimes. - Pt was discharged on Cipro based on swabs done by podiatry prior to that admission which grew out enterococcus. He followed up with Dr. Rose as an outpt and states that he was treated with another round of antibiotics, he believes was Clindamycin for 7 days which he just completed yesterday. - Last week he had a debridement with Dr. Rose of the right lateral foot wound but this has not been healing well. Pt was sent to see Dr. Redman today for wound care and pt was sent to the ED for admission for podiatry consultation for debridement and possible wound vac placement. - MRI foot shows osteo of residual 5th metatarsal. - Started antibiotics with Zosyn await surgical plans for resection of metatarsal/osteo. npo. d5ns ordered. monitor bg and use ssi as needed. (2) DM (diabetes mellitus) ICD Codes: E11.9 - Type 2 diabetes mellitus without complications Status: Chronic Plan: - Hold home meds - NovoLog SSI - Accu checks (3) HTN (hypertension) ICD Codes: I10 - Essential (primary) hypertension Status: Chronic Plan: - Hold Lisinopril due to hyperkalemia - Cont. HCTZ - Repeat labs in AM - Monitor BP (4) Hypertriglyceridemia ICD Codes: E78.1 - Hypertriglyceridemia Status: Chronic (5) Obesity ICD Codes: E66.9 - Obesity Status: Chronic Problem Qualifiers (1) Non-healing ulcer of foot with necrosis of muscle: Qualified Codes: L97.513 - Non-pressure chronic ulcer of other part of right foot with necrosis of muscle (2) DM (diabetes mellitus): Abhinav Coleman MD Oct 09, 2016 11:32
[2016-10-09] MEDS ORDERED: ePHEDrine/NS 25 MG/5 ML SYR IV ONE (12:00)
[2016-10-09] MEDS ORDERED: ONDANSETRON HCL 4 MG/2 ML VIAL IV PUSH ONE (12:00)
[2016-10-09] MEDS ORDERED: PROPOFOL 200 MG/20 ML AMP IV ONE (12:00)
[2016-10-09] MEDS: cloNIDine HCL 0.1 MG TAB PO PRN (14:15)
--- NOTE | 2016-10-09 14:27 | PD.VS.PN ---
Subjective Subjective/Hospital Course Pt with R lateral foot tissue loss, admitted through ED last night and planned for lateral metatarsectomy later today. Previously had angio w/u including CTA and angiogram. Objective Vitals/I&O Date Time Temp Pulse Resp B/P (MAP) Pulse Ox O2 Delivery O2 Flow Rate FiO2 10/09/16 08:33 97.7 69 20 182/84 (116) 97 10/09/16 04:00 98.4 72 18 171/77 (108) 96 10/09/16 00:00 98.2 71 18 171/82 (111) 96 10/08/16 23:00 98.2 71 18 171/82 (111) 96 10/08/16 21:21 10/08/16 21:20 17 10/08/16 21:19 72 17 165/77 (106) 96 Room Air 10/08/16 19:50 76 17 142/69 (93) 98 Room Air 10/08/16 18:12 18 10/08/16 16:00 97.9 76 16 152/81 (104) 98 Room Air 10/08/16 14:31 97.9 73 17 146/78 (100) 98 Room Air Physical Exam R lateral foot with exudate and foul smelling necrotic tissue + pulse DP Laboratory Laboratory Tests Test 10/09/16 04:05 White Blood Count 9.6 Red Blood Count 3.80 Hemoglobin 11.3 Hematocrit 34.7 Mean Corpuscular Volume 91.3 Mean Corpuscular Hemoglobin 29.7 Mean Corpuscular Hemoglobin Concent 32.5 Red Cell Distribution Width 13.8 Platelet Count 252 Mean Platelet Volume 8.5 Neutrophils (%) (Auto) 66.1 Lymphocytes (%) (Auto) 24.1 Monocytes (%) (Auto) 6.8 Eosinophils (%) (Auto) 2.6 Basophils (%) (Auto) 0.4 Neutrophils # (Auto) 6.3 Lymphocytes # (Auto) 2.3 Monocytes # (Auto) 0.6 Eosinophils # (Auto) 0.2 Basophils # (Auto) 0.0 CBC Comment DIFF FINAL Differential Comment Blood Urea Nitrogen 23 Creatinine 1.07 Random Glucose 65 Calcium Level 8.9 Magnesium Level 2.5 Sodium Level 139 Potassium Level 5.2 Chloride Level 106 Carbon Dioxide Level 27.0 Anion Gap 6 Estimat Glomerular Filtration Rate 71 Date/Time Source Procedure Growth Status 10/08/16 13:05 Blood Peripheral Aerobic Blood Culture - Preliminary Gram Positive Rods Resulted 10/08/16 13:05 Blood Peripheral Anaerobic Blood Culture - Preliminary NO GROWTH IN 1 DAY Resulted Imaging Angio reviewed - inline flow to foot but poor pedal arch opacification Assessment and Plan Plan agree with metatarsectomy today if perfusion doesn't appear adequate intra-op or wound stagnates post-op could have attempt at endovascular pedal arch reconstruction will follow Otis Brooks MD Oct 09, 2016 2:27 pm
[2016-10-09] MEDS ORDERED: LIDOCAINE HCL 2% 50 ML VIAL ONE (17:31)
[2016-10-09] MEDS ORDERED: BUPIVACAINE HCL PF 0.5% 30 ML VIAL ONE (17:36)
[2016-10-09] MEDS ORDERED: GENTAMICIN SULFATE 80 MG/2 ML VIAL ONE (17:42)
--- NOTE | 2016-10-09 19:08 | PD.CONS ---
History of Present Illness Service Podiatry Consult Requested By Reason for Consult R foot nonhealing wound, dehiscence s/p partial 5th ray amputation Primary Care Physician Humaira Boyer MD Diagnoses: History of Present Illness Patient was sent in by Dr Redman from wound care center due to bone exposure in wound for evaluation for revision amputation and wound debridement with wound vac. Patient understands and wishes to preserve limb at all costs due to history of BKA LLE. Past Family Social History Allergies: Coded Allergies: No Known Allergies (Unverified , 10/08/16) Past Medical History Diabetes mellitus, type 2 HTN PAD Nonhealing wound, right foot Past Surgical History Left BKA Partial R 5th ray amp Active Ordered Medications Current Medications Medications (Trade) Dose Ordered Sig/Win Route Start Time Stop Time Status Last Admin (Lipitor) 80 mg HS PO 10/08/16 21:00 (Flaxton 5-325 Mg) 1 tab Q4HR PRN PO 10/08/16 16:00 10/09/16 15:47 (NovoLOG SUPPLEMENTAL SCALE) 1 ACHS SLIDING SCALE SQ 10/08/16 16:00 10/08/16 21:35 (Dilaudid Pf Inj) 1 mg Q4H PRN IV PUSH 10/08/16 16:00 10/09/16 12:30 (Tylenol) 650 mg Q4H PRN PO 10/08/16 16:00 (Zofran Inj) 4 mg Q6H PRN IV 10/08/16 16:00 (D50w (Vial) Inj) 50 ml UNSCH PRN IV PUSH 10/08/16 16:15 (Glucagon Inj) 1 mg UNSCH PRN OTHER 10/08/16 16:15 (Hydrodiuril) 25 mg DAILY PO 10/09/16 09:00 10/09/16 09:23 Piperacillin Sod/ Tazobactam Sod 50 ml @ 100 mls/hr Q6H IV 10/08/16 18:00 10/09/16 17:05 (Catapres) 0.1 mg Q4H PRN PO 10/09/16 10:30 10/09/16 14:15 Dextrose/Sodium Chloride 1,000 ml @ 80 mls/hr ONCE ONCE IV 10/09/16 11:15 10/09/16 23:44 10/09/16 12:10 Family History n/c Social History denies Physical Exam Vital Signs Vital Signs Date Time Temp Pulse Resp B/P (MAP) Pulse Ox O2 Delivery O2 Flow Rate FiO2 10/09/16 15:58 97.8 68 20 169/81 (110) 98 10/09/16 14:30 97.9 68 20 182/86 (118) 98 10/09/16 08:33 97.7 69 20 182/84 (116) 97 10/09/16 04:00 98.4 72 18 171/77 (108) 96 10/09/16 00:00 98.2 71 18 171/82 (111) 96 10/08/16 23:00 98.2 71 18 171/82 (111) 96 10/08/16 21:21 10/08/16 21:20 17 10/08/16 21:19 72 17 165/77 (106) 96 Room Air 10/08/16 19:50 76 17 142/69 (93) 98 Room Air Physical Exam R lateral foot with necrotic/fibrotic tissue and exposed bone from remnant proximal half of 5th metatarsal visible in base of wound. No purulence noted. No foul odor. Laboratory Laboratory Tests Test 10/09/16 04:05 White Blood Count 9.6 Red Blood Count 3.80 Hemoglobin 11.3 Hematocrit 34.7 Mean Corpuscular Volume 91.3 Mean Corpuscular Hemoglobin 29.7 Mean Corpuscular Hemoglobin Concent 32.5 Red Cell Distribution Width 13.8 Platelet Count 252 Mean Platelet Volume 8.5 Neutrophils (%) (Auto) 66.1 Lymphocytes (%) (Auto) 24.1 Monocytes (%) (Auto) 6.8 Eosinophils (%) (Auto) 2.6 Basophils (%) (Auto) 0.4 Neutrophils # (Auto) 6.3 Lymphocytes # (Auto) 2.3 Monocytes # (Auto) 0.6 Eosinophils # (Auto) 0.2 Basophils # (Auto) 0.0 CBC Comment DIFF FINAL Differential Comment Blood Urea Nitrogen 23 Creatinine 1.07 Random Glucose 65 Calcium Level 8.9 Magnesium Level 2.5 Sodium Level 139 Potassium Level 5.2 Chloride Level 106 Carbon Dioxide Level 27.0 Anion Gap 6 Estimat Glomerular Filtration Rate 71 Date/Time Source Procedure Growth Status 10/08/16 13:05 Blood Peripheral Aerobic Blood Culture - Preliminary Gram Positive Rods Resulted 10/08/16 13:05 Blood Peripheral Anaerobic Blood Culture - Preliminary NO GROWTH IN 1 DAY Resulted Result Diagram: 10/09/16 0405 10/09/16 0405 Imaging Last Impressions Foot MRI 10/08/16 0000 Signed Impressions: Service Date/Time: Saturday, October 08, 2016 16:39 - CONCLUSION: 1. Amputation of the majority of the fifth metatarsal and fifth toe. 2. Osteomyelitis of the remaining proximal and mid fifth metatarsal. Levy Sebastian MD Assessment and Plan Assessment and Plan Infection R foot s/p partial 5th ray amputation Plan to OR for revision amputation Patient will need long-term IV antibiotics per intraoperative cultures and follow up with wound care to attempt limb salvage. Explained options to patient and ramifications of more proximal amputation vs IV antibiotics for osteomyelitis. Plan to place wound vac on intraoperatively. Will need wound vac changes set up, IV antibiotics per intraoperative cultures, and follow up at wound care with Dr Feroz arreguin d/c. Discharge Planning Patient will need long-term IV antibiotics per intraoperative cultures and follow up with wound care to attempt limb salvage. Explained options to patient and ramifications of more proximal amputation vs IV antibiotics for osteomyelitis. Plan to place wound vac on intraoperatively. Will need wound vac changes set up, IV antibiotics per intraoperative cultures, and follow up at wound care with Dr Feroz arreguin d/c. Dorothea Grimes DPM Oct 09, 2016 19:08
--- NOTE | 2016-10-09 19:23 | HHI.PR ---
Immediate Post Op Note Procedure Date: Oct 09, 2016 Pre Op Diagnosis: infection with osteomyelitis R lateral foot Post Op Diagnosis: same Surgeon: Dorothea Grimes DPM Inside Barrel Polisher(s): staff Procedure: Revision 5th partial ray amputation with wound vac placement Findings: Consistent with diagnosis. Necrotic and fibrotic tissue noted to wound bed lateral R foot previous amputation site with visible/palpable bone of remnant proximal 5th metatarsal area. Wound excisionally debrided of necrotic and fibrotic tissue down to healthy bleeding viable fat and 5th metatarsal resected at base/shaft junction to preserve tendinous attachment. Bone was hard, white, not necrotic in this area. All tissue bled readily, but not excessively. Wound copiously irrigated and culture taken of wound prior to closure. Wound approximated proximally over bone with 2-0 nylon suture, followed by placement of wound vac, small granufoam, set at 125mmHg medium continuous setting, over incision and distal open area. Residual surgical wound approx measurements 5 x 1.5 x 1. Residual bone was able to be covered with tissue proximally. No purulence was noted in any area throughout wound. Additional Information: Patient will need long-term IV antibiotics per intraoperative culture and follow up with wound care to attempt limb salvage. Explained options to patient and ramifications of more proximal amputation vs IV antibiotics for osteomyelitis and he wishes to continue wound care and IV antibiotics before moving on to further amputation. Discharge planning: Will need wound vac changes set up, IV antibiotics per intraoperative cultures, and follow up at wound care with Dr Redman upon d/c. Complications: none Specimen(s) removed: culture R foot Estimated blood loss: 10mL Anesthesia: General Drains: Other (wound vac) IVF Tourniquet time (min at mmHg) n/a Patient to: PACU Patient Condition: Good Date/Time of Procedure: SEE SURGICAL CARE RECORD Dorothea Grimes DPM Oct 09, 2016 19:23
[2016-10-09] MEDS ORDERED: fentaNYL CITRATE 250 MCG/5 ML AMP ONE (19:25)
[2016-10-09] MEDS ORDERED: MIDAZOLAM HCL 2 MG/2 ML VIAL ONE (19:25)
[2016-10-09] MEDS ORDERED: *morphine SULFATE 8 MG/ML PERIprocedure ONLY ONE ×2 (19:35→19:49)
[2016-10-09] MEDS ORDERED: DO NOT ADM ANY ANTICOAGULANT DRUGS PRN (20:00)
[2016-10-09] MEDS: ATORVASTATIN 80 MG TAB PO SCH ×2 (20:22→20:42)
--- NOTE | 2016-10-09 21:30 | MP ---
cc: DOROTHEA BEE DPAyesha DATE OF SURGERY 10/09/16 1960 The patient presented to wound care center with Dr. Redman and was seen and there was bone noted to be visible within the base of the wound to his right foot previous partial fifth ray amputation site. He was sent to be evaluated for possible revision of the amputation due to the patient's wishes to continue with long-term IV antibiotics and wound care to attempt limb salvage secondary to a previous [id number] amputation on the left side. He came in through the emergency department, was evaluated and I discussed the risks, benefits and potential complications of the patient with moving forward with a more aggressive amputation versus continuing with a revision amputation, wound care and long-term IV antibiotics secondary to evidence of possible osteomyelitis in the area. The patient wishes to move forward with long-term IV antibiotics. wound care and attempt to maintain as much of the foot as possible. I discussed the surgery with the patient. He signed consent and he was seen in preop holding by myself, nursing staff and Anesthesia where the correct patient, side and site were all confirmed to be correct in the right foot. He was then taken to the surgical suite, placed in supine position where attention was directed to the right foot. It was prepped and draped in normal sterile fashion after timeouts were performed as per hospital protocol. Attention was directed to the right foot where all necrotic and fibrotic tissue was noted to the wound bed of the lateral right foot of the previous amputation site with both visible and palpable bone of the remnant proximal fifth metatarsal area. The wound was excisionally debrided of necrotic and fibrotic tissue down to healthy bleeding viable fat and fifth metatarsal was resected at the base shaft junction in order to preserve the proximal tendinous attachments. The bone was found be hard, white, healthy in appearance, not necrotic. In this the area where the bone was transected, all tissue was noted to be viable, bled readily but not excessively. The wound then was copiously irrigated followed by culture taken of the wound prior to wound being approximated proximally over the bone with 2-0 nylon suture followed by placement of a small granufoam wound VAC set at 125 mmHg continuous over the incision and the distal open area that was residual. The surgical area measured approximately 5 x 1.5 x 1 cm and the residual bone was able to be covered completely with tissue at the proximal aspect. No purulence was noted at all through the procedure to any area throughout the entire wound. The patient tolerated procedure and anesthesia well and was taken back to PACU with vital signs stable and vascular status intact to the remainder of the right foot. He will need long-term IV antibiotics based on these intraoperative culture results as well as wound care set up at the wound care center with Dr. Redman and wound VAC changes set up at home prior to discharge. SHORT OPERATIVE NOTE SURGEON Cherrie Bee MD MANAGER CLIENT SERVICE Staff PREOPERATIVE DIAGNOSIS Infection with osteomyelitis right lateral foot. POSTOPERATIVE DIAGNOSIS Infection with osteomyelitis right lateral foot. PROCEDURE Revision fifth partial ray amputation with wound VAC placement. ANESTHESIA General endotracheal anesthesia PATHOLOGY Culture right foot. COMPLICATIONS None ESTIMATED BLOOD LOSS 10 mL HEMOSTASIS No tourniquet utilized ESTIMATED BLOOD LOSS 10 mL CONDITION Stable to PACU. DISPOSITION Long-term IV antibiotics needed per intraoperative cultures. Wound VAC changes set up prior to discharge and follow-up set up with the wound care center and with Dr. Redman prior to discharge will be required. Dorothea GILLIAM/ /7:23 PM /9:12 PM
[2016-10-10 05:11] VITALS: BP 155/74; PULSE 79; RESP 18; TEMP 98.3; O2SAT 95
[2016-10-10] MEDS: PIPERACIL-TAZO 3.375 GM PREMIX 50 ML IV SCH ×4 (05:14→23:53)
[2016-10-10] MEDS: ACETAMINOPHEN/HYDROcodone 325 MG/5 MG TAB PO PRN ×4 (05:14→21:13)
[2016-10-10] MEDS: HYDROmorphone HCL PF 1 MG/ML VIAL IV PUSH PRN ×4 (06:52→23:53)
[2016-10-10] MEDS: INSULIN ASPART SUPPLEMENTAL SCALE SQ SCH ×4 (06:52→21:59)
[2016-10-10 08:03] VITALS: BP 138/73; PULSE 72; RESP 18; TEMP 98; O2SAT 95
[2016-10-10] MEDS: HYDROCHLOROTHIAZIDE 25 MG TAB PO SCH ×2 (09:00→09:54)
--- NOTE | 2016-10-10 09:56 | PD.VS.PN ---
Subjective Subjective/Hospital Course Pt in bed post op day [address] to RLE Pt w/o any complaints Pain controlled Objective Vitals/I&O Date Time Temp Pulse Resp B/P (MAP) Pulse Ox O2 Delivery O2 Flow Rate FiO2 10/10/16 08:03 98.0 72 18 138/73 (94) 95 10/10/16 05:11 98.3 79 18 155/74 (101) 95 10/09/16 23:32 98.2 76 19 142/68 (92) 96 10/09/16 20:32 97.6 72 16 153/77 (102) 96 10/09/16 19:51 72 14 144/73 (96) 95 Nasal Cannula 2 10/09/16 19:45 73 19 146/72 (96) 94 Nasal Cannula 2 10/09/16 19:30 76 13 149/71 (97) 95 Nasal Cannula 2 10/09/16 19:15 74 18 165/79 (107) 96 Nasal Cannula 2 10/09/16 19:14 98.8 74 14 185/86 (119) 97 Nasal Cannula 2 10/09/16 15:58 97.8 68 20 169/81 (110) 98 10/09/16 14:30 97.9 68 20 182/86 (118) 98 10/10/16 10/10/16 10/10/16 07:00 15:00 23:00 Intake Total 100 ml Balance 100 ml Physical Exam GENERAL: A&OX3,NAD,GCS15 SKIN: Warm and dry/ dressing to R foot i/c/d w/ wound vac in place Palpable R DP noted R LE warm w/ motor intact Laboratory Date/Time Source Procedure Growth Status 10/08/16 13:05 Blood Peripheral Aerobic Blood Culture - Preliminary Gram Positive Rods Resulted 10/08/16 13:05 Blood Peripheral Anaerobic Blood Culture - Preliminary NO GROWTH IN 1 DAY Resulted 10/09/16 00:00 Wound Toe Fungal Smear - Final NO FUNGAL ELEMENTS SEEN. Resulted 10/09/16 00:00 Wound Toe Fungal Culture Pending Resulted Assessment and Plan Assessment: (1) Non-healing ulcer of foot with necrosis of muscle Status: Acute (2) Peripheral vascular disease Status: Chronic (3) Diabetes type 2, uncontrolled Status: Chronic (4) HTN (hypertension) Status: Chronic (5) DM (diabetes mellitus) Status: Chronic (6) Hypercholesteremia Status: Chronic Plan Pt doing well post operatively Pt w/ a palpable R DP Plan No surgical intervention needed at this time Will have patient follow up next week in our out patient clinic Pt clear for d/c from a Vascular Standpoint Janet SOTO [facility] [phone] Discharge Planning Arranged f/u Problem Qualifiers (1) Non-healing ulcer of foot with necrosis of muscle: Qualified Codes: L97.513 - Non-pressure chronic ulcer of other part of right foot with necrosis of muscle (2) DM (diabetes mellitus): Janet Bender Oct 10, 2016 09:56
--- NOTE | 2016-10-10 10:24 | HHI.PR ---
Subjective Remarks severe foot pain last night. better. Objective Vitals reg lung cta abd s/nt ext right lat foot wound vac and bandage. Vital Signs Date Time Temp Pulse Resp B/P (MAP) Pulse Ox O2 Delivery O2 Flow Rate FiO2 10/10/16 08:03 98.0 72 18 138/73 (94) 95 10/10/16 05:11 98.3 79 18 155/74 (101) 95 10/09/16 23:32 98.2 76 19 142/68 (92) 96 10/09/16 20:32 97.6 72 16 153/77 (102) 96 10/09/16 19:51 72 14 144/73 (96) 95 Nasal Cannula 2 10/09/16 19:45 73 19 146/72 (96) 94 Nasal Cannula 2 10/09/16 19:30 76 13 149/71 (97) 95 Nasal Cannula 2 10/09/16 19:15 74 18 165/79 (107) 96 Nasal Cannula 2 10/09/16 19:14 98.8 74 14 185/86 (119) 97 Nasal Cannula 2 10/09/16 15:58 97.8 68 20 169/81 (110) 98 10/09/16 14:30 97.9 68 20 182/86 (118) 98 Result Diagram: 10/09/16 0405 10/09/16 0405 A/P Problem List: (1) Non-healing ulcer of foot with necrosis of muscle ICD Codes: L97.503 - Non-pressure chronic ulcer of other part of unspecified foot with necrosis of muscle Status: Acute Plan: - Pt is a 56 y/o WM with type 2 DM, PAD s/p left BKA, who was previously hospitalized in August 2016 for a nonhealing wound to the right lateral foot. Podiatry had swabbed the area and apparently grew enterobacter. Pt had an MRI foot (09/12) which noted diffuse cellulitis involving the right fifth toe as well as some edema and enhancement of the head of the right fifth metatarsal as well as the right fifth phalanges raising the possibility of osteomyelitis. He was seen by podiatry and Vascular surgery and had an angiogram on 09/14 with noted good flow in the RLE. Pt underwent amputation of right 5th toe and partial ray amputation with necrotic head on 09/[address] Grimes. No growth came of those surgical cx's He followed up with Dr. Rose as an outpt and states that he was treated with another round of antibiotics, he believes was Clindamycin for 7 days which he just completed yesterday. Last week he had a debridement with Dr. Rose of the right lateral foot wound but this has not been healing well. Pt was sent to see Dr. Redman for wound care and pt was sent to the ED for admission for podiatry consultation for debridement and possible wound vac placement. MRI foot shows osteo of residual 5th metatarsal. Started antibiotics with Zosyn. On 10/09 resection of the residual 5th metatarsal..apparently non necrotic hard bone found. Podiatry felt IV abx are needed and wound vac. Will consult ID to get opinion on the alf iv abx. f/u surgical cx's (2) DM (diabetes mellitus) ICD Codes: E11.9 - Type 2 diabetes mellitus without complications Status: Chronic Plan: - Hold home meds - NovoLog SSI - Accu checks (3) HTN (hypertension) ICD Codes: I10 - Essential (primary) hypertension Status: Chronic Plan: - Hold Lisinopril due to hyperkalemia - Cont. HCTZ - Repeat labs in AM - Monitor BP (4) Hypertriglyceridemia ICD Codes: E78.1 - Hypertriglyceridemia Status: Chronic (5) Obesity ICD Codes: E66.9 - Obesity Status: Chronic Problem Qualifiers (1) Non-healing ulcer of foot with necrosis of muscle: Qualified Codes: L97.513 - Non-pressure chronic ulcer of other part of right foot with necrosis of muscle (2) DM (diabetes mellitus): Abhinav Coleman MD Oct 10, 2016 10:24
[2016-10-10] MEDS ORDERED: ACETAMINOPHEN/HYDROcodone 325 MG/5 MG TAB PO PRN (10:30)
[2016-10-10 11:19] LABS: BICARBONATE 25.3 MEQ/L (21.0-32.0); POTASSIUM 5.1 MEQ/L (3.5-5.1)
[2016-10-10 12:13] VITALS: BP 141/68; PULSE 77; RESP 18; TEMP 98.4; O2SAT 96
--- NOTE | 2016-10-10 13:59 | PD.CONS ---
History of Present Illness Service Infectious disease Consult Requested By Dr William Corcoran Reason for Consult Evaluate patient with osteomyelitis right foot Primary Care Physician Humaira Boyer MD Diagnoses: History of Present Illness patient seen and examined. Records reviewed. Patient is a 56-year-old male, with diabetes, PAD, had undergone partial ray amputation of the fifth metatarsal right foot last September 14, 2016, admitted to the hospital for further management of his right foot wound. When the patient was discharge during his last admission, he was given Cipro. The intraoperative cultures during that admission was negative. But there was an admission culture that had normal skin jacqueline. Pathology report showed the inflammatory process extended into the margin of the soft tissue. Bone biopsy was done of the residual metatarsal and it was negative for osteomyelitis. His sedimentation rate then was 63, C-reactive protein was 4.4. Patient had a follow-up with his gathering machine feeder, and when the sutures were removed, the patient stated that he had debridement. He was put on a second course of antibiotics, and he was referred to [facility] wound care [place] further follow-up and possibly wound VAC placement. On the day of admission, patient was seen in the wound care center, and he was seen by Dr. Redman who recommended that he go to the hospital for further management and debridement. He complaints of some foot pain. He denies any fever or chills or sweats. He has not noticed any redness on his right foot or any redness going up his right leg. He completed his last course of antibiotics about 2 days prior to coming into the hospital. He has not had any nausea or vomiting or any diarrhea. On this admission, he is afebrile. His WBC is hurting 0.6. Patient underwent revision amputation on the right foot, and placement of a wound VAC. Infectious disease consultation has been requested to make recommendation regarding treatment. Review of Systems Constitutional: DENIES: Fever, Chills Eyes: DENIES: Eye pain Ears, nose, mouth, throat: DENIES: Nasal discharge, Oral lesions, Throat pain, Sinus Pain Respiratory: DENIES: Cough, Shortness of breath Cardiovascular: DENIES: Chest pain, Palpitations, Syncope Gastrointestinal: DENIES: Abdominal pain, Diarrhea, Nausea, Vomiting Genitourinary: DENIES: Urgency, Hematuria, Dysuria Musculoskeletal: COMPLAINS OF: Joint pain, Joint Swelling Integumentary: DENIES: Rash Neurologic: DENIES: Headache, Localized weakness Psychiatric: DENIES: Hallucinations Past Family Social History Allergies: Coded Allergies: No Known Allergies (Unverified , 10/08/16) Past Medical History Diabetes mellitus, type 2 HTN PAD Nonhealing wound, right foot Past Surgical History L BKA 2013 Previous revascularizations LE for PAD Partial ray 5th MT amputation August 2016 Active Ordered Medications Tylenol [place] Lipitor Clonidine Hydrochlorothiazide Dilaudid Insulin Zofran Zosyn Family History Noncontributory Social History No smoking No ETOH abuse No illicit drugs Physical Exam Vital Signs Vital Signs Date Time Temp Pulse Resp B/P (MAP) Pulse Ox O2 Delivery O2 Flow Rate FiO2 10/10/16 12:13 98.4 77 18 141/68 (92) 96 10/10/16 08:03 98.0 72 18 138/73 (94) 95 10/10/16 05:11 98.3 79 18 155/74 (101) 95 10/09/16 23:32 98.2 76 19 142/68 (92) 96 10/09/16 20:32 97.6 72 16 153/77 (102) 96 10/09/16 19:51 72 14 144/73 (96) 95 Nasal Cannula 2 10/09/16 19:45 73 19 146/72 (96) 94 Nasal Cannula 2 10/09/16 19:30 76 13 149/71 (97) 95 Nasal Cannula 2 10/09/16 19:15 74 18 165/79 (107) 96 Nasal Cannula 2 10/09/16 19:14 98.8 74 14 185/86 (119) 97 Nasal Cannula 2 10/09/16 15:58 97.8 68 20 169/81 (110) 98 10/09/16 14:30 97.9 68 20 182/86 (118) 98 Physical Exam GENERAL: Patient is a well-nourished, well-developed male, awake and alert, not in respiratory distress. SKIN: Warm and dry. No generalized rash, no ecchymoses and no evidence of embolic lesions. HEAD: Atraumatic. Normocephalic. No temporal wasting, or tenderness. EYES: [place] conjunctiva. No petechia or hemorrhage. Pupils equal, round and reactive to light. Extraocular movements full and intact. No scleral icterus. No injection or drainage. EARS, NOSE AND THROAT: Nose without bleeding or purulent nasal discharge. No sinus tenderness. Mucous membranes pink and moist. No oral lesions noted. No oral thrush. NECK: Trachea midline. Supple and not tender, no meningeal signs CARDIOVASCULAR: Regular rate and rhythm. No murmurs, rubs or gallops heard RESPIRATORY: Clear to auscultation. Breath sounds equal bilaterally. No rales , wheezing or rhonchi. He has decreased breath sounds at bases ABDOMEN: Globular and protuberant, distended, not tender. Bowel sounds present and normoactive. No guarding. No rebound. EXTREMITIES: He is S/P LBKA and has the sleeve and prosthesis in place. He has dry and intact dressing with wound vac on lateral aspect of his R foot. No cellulitis or lymphangitis seen on his R leg or R thigh. No R calf tenderness. NEUROLOGICAL: Awake and alert. Cranial nerves grossly intact. Motor grossly within normal limits. PSYCHIATRIC: Normal affect, calm and cooperative. LINE: No evidence of infection Laboratory Laboratory Tests Test 10/10/16 09:38 Blood Urea Nitrogen 17 Creatinine 1.20 Random Glucose 222 Calcium Level 8.9 Sodium Level 132 Potassium Level 5.1 Chloride Level 99 Carbon Dioxide Level 25.3 Anion Gap 8 Estimat Glomerular Filtration Rate 63 Date/Time Source Procedure Growth Status 10/08/16 13:05 Blood Peripheral Aerobic Blood Culture - Final Bacillus Species Not Anthracis Resulted 10/08/16 13:05 Blood Peripheral Anaerobic Blood Culture - Preliminary NO GROWTH IN 2 DAYS Resulted 10/09/16 00:00 Wound Toe Fungal Smear - Final NO FUNGAL ELEMENTS SEEN. Resulted 10/09/16 00:00 Wound Toe Fungal Culture Pending Resulted Result Diagram: 10/09/16 0405 10/10/16 0938 Imaging RADIOLOGY STUDIES/FILMS REVIEWED Foot MRI 10/08/16 0000 Signed Impressions: Service Date/Time: Saturday, October 08, 2016 16:39 - CONCLUSION: 1. Amputation of the majority of the fifth metatarsal and fifth toe. 2. Osteomyelitis of the remaining proximal and mid fifth metatarsal. Levy Sebastian MD Assessment and Plan Assessment and Plan IMPRESSION Diabetic foot wound, poor healing S/P partial 5th ray amputation September 14, 2016 - S/P revision, ?if with further underlying osteo, per notes bone hard and not mushy - did not see if any new bone sent for path - intraop C/S negative so far Known PAD and previous revascularization S/P LBKA for wet gangrene DM, HTN RECOMMENDATION On Zosyn currently Give IV Vanco Will follow C/S Will find out if any bone sent for path ESR and CRP I will determine course of Rx Hope to look at operative site when ok with podiatry If no evidence of bone infection, ?need for any prolonged IV Abx I will follow along with you Thank you for this consultation Discussed Condition With Explained plan to the patient Evelyn Ayala MD Oct 10, 2016 13:59
[2016-10-10 17:05] VITALS: BP 168/80; PULSE 73; RESP 18; TEMP 98; O2SAT 96
[2016-10-10 20:00] VITALS: BP 183/87; PULSE 74; RESP 18; TEMP 98.3; O2SAT 95
[2016-10-10] MEDS: ATORVASTATIN 80 MG TAB PO SCH (21:13)
[2016-10-10 23:56] VITALS: BP 138/71; PULSE 74; RESP 18; TEMP 98.1; O2SAT 96
[2016-10-11 05:54] VITALS: BP 164/81; PULSE 68; RESP 18; TEMP 98.1; O2SAT 96
[2016-10-11] MEDS: ACETAMINOPHEN/HYDROcodone 325 MG/5 MG TAB PO PRN ×4 (05:57→23:41)
[2016-10-11] MEDS: PIPERACIL-TAZO 3.375 GM PREMIX 50 ML IV SCH ×2 (05:57→12:08)
[2016-10-11] MEDS: INSULIN ASPART SUPPLEMENTAL SCALE SQ SCH ×4 (06:06→22:09)
[2016-10-11 08:14] LABS: BICARBONATE 25.8 MEQ/L (21.0-32.0); POTASSIUM 4.7 MEQ/L (3.5-5.1)
[2016-10-11] MEDS: HYDROCHLOROTHIAZIDE 25 MG TAB PO SCH (08:19)
[2016-10-11] MEDS: HYDROmorphone HCL PF 1 MG/ML VIAL IV PUSH PRN ×4 (08:20→21:51)
[2016-10-11 08:33] VITALS: BP 157/78; PULSE 71; RESP 18; TEMP 98.2; O2SAT 95
--- NOTE | 2016-10-11 10:25 | HHI.PR ---
Subjective Remarks doing ok pain controlled Objective Vitals nad right foot bandaged/wound vac/boot. Vital Signs Date Time Temp Pulse Resp B/P (MAP) Pulse Ox O2 Delivery O2 Flow Rate FiO2 10/11/16 08:33 98.2 71 18 157/78 (104) 95 10/11/16 05:54 98.1 68 18 164/81 (108) 96 10/11/16 04:00 10/11/16 00:00 10/10/16 23:56 98.1 74 18 138/71 (93) 96 10/10/16 20:00 98.3 74 18 183/87 (119) 95 10/10/16 17:05 98.0 73 18 168/80 (109) 96 10/10/16 12:13 98.4 77 18 141/68 (92) 96 Result Diagram: 10/09/16 0405 10/11/16 0710 A/P Problem List: (1) Non-healing ulcer of foot with necrosis of muscle ICD Codes: L97.503 - Non-pressure chronic ulcer of other part of unspecified foot with necrosis of muscle Status: Acute Plan: - Pt is a 56 y/o WM with type 2 DM, PAD s/p left BKA, who was previously hospitalized in August 2016 for a nonhealing wound to the right lateral foot. Podiatry had swabbed the area and apparently grew enterobacter. Pt had an MRI foot (09/12) which noted diffuse cellulitis involving the right fifth toe as well as some edema and enhancement of the head of the right fifth metatarsal as well as the right fifth phalanges raising the possibility of osteomyelitis. He was seen by podiatry and Vascular surgery and had an angiogram on 09/14 with noted good flow in the RLE. Pt underwent amputation of right 5th toe and partial ray amputation with necrotic head on 09/[address] Grimes. No growth came of those surgical cx's He followed up with Dr. Rose as an outpt and states that he was treated with another round of antibiotics, he believes was Clindamycin for 7 days which he just completed yesterday. Last week he had a debridement with Dr. Rose of the right lateral foot wound but this has not been healing well. Pt was sent to see Dr. Redman for wound care and pt was sent to the ED for admission for podiatry consultation for debridement and possible wound vac placement. MRI foot shows osteo of residual 5th metatarsal. Started antibiotics with Zosyn. On 10/09 resection of the residual 5th metatarsal..apparently non necrotic hard bone found. Podiatry felt IV abx are needed and wound vac.IDconsulted to get opinion on the watermaster iv abx. f/ u surgical cx's..light growth gnr (2) DM (diabetes mellitus) ICD Codes: E11.9 - Type 2 diabetes mellitus without complications Status: Chronic Plan: - Hold home meds - NovoLog SSI - Accu checks (3) HTN (hypertension) ICD Codes: I10 - Essential (primary) hypertension Status: Chronic Plan: - Hold Lisinopril due to hyperkalemia - Cont. HCTZ - Repeat labs in AM - Monitor BP (4) Hypertriglyceridemia ICD Codes: E78.1 - Hypertriglyceridemia Status: Chronic (5) Obesity ICD Codes: E66.9 - Obesity Status: Chronic Problem Qualifiers (1) Non-healing ulcer of foot with necrosis of muscle: Qualified Codes: L97.513 - Non-pressure chronic ulcer of other part of right foot with necrosis of muscle (2) DM (diabetes mellitus): Abhinav Coleman MD Oct 11, 2016 10:25
[2016-10-11 12:44] VITALS: BP 157/71; PULSE 72; RESP 18; TEMP 98.1; O2SAT 94
--- NOTE | 2016-10-11 14:11 | HHI.IDPN ---
Subjective Subjective Remarks Patient is a 56-year-old male, with diabetes, PAD, had undergone partial ray amputation of the fifth metatarsal right foot last September 14, 2016, admitted to the hospital for further management of his right foot wound. When the patient was discharge during his last admission, he was given Cipro. The intraoperative cultures during that admission was negative. But there was an admission culture that had normal skin jacqueline. Pathology report showed the inflammatory process extended into the margin of the soft tissue. Bone biopsy was done of the residual metatarsal and it was negative for osteomyelitis. His sedimentation rate then was 63, C-reactive protein was 4.4. Patient had a follow-up with his internal medicine specialist, and when the sutures were removed, the patient stated that he had debridement. He was put on a second course of antibiotics, and he was referred to [facility] wound care [place] further follow-up and possibly wound VAC placement. On the day of admission, patient was seen in the wound care center, and he was seen by Dr. Redman who recommended that he go to the hospital for further management and debridement. He complaints of some foot pain. He denies any fever or chills or sweats. He has not noticed any redness on his right foot or any redness going up his right leg. He completed his last course of antibiotics about 2 days prior to coming into the hospital. He has not had any nausea or vomiting or any diarrhea. On this admission, he is afebrile. His WBC is hurting 0.6. Patient underwent revision amputation on the right foot, and placement of a wound VAC. Infectious disease consultation has been requested to make recommendation regarding treatment. Notes reviewed No complaints No fever Intraop C/S with GNR - not growing very well; micro did subculture ESR 92 CRP 11 WBC down to normal Antibiotics Zosyn Lines PIV Past Medical History Diabetes mellitus, type 2 HTN PAD Nonhealing wound, right foot Past Surgical History L BKA 2013 Previous revascularizations LE for PAD Partial ray 5th MT amputation August 2016 Allergies: Coded Allergies: No Known Allergies (Unverified , 10/08/16) Objective . Vital Signs Date Time Temp Pulse Resp B/P (MAP) Pulse Ox O2 Delivery O2 Flow Rate FiO2 10/11/16 12:44 98.1 72 18 157/71 (99) 94 10/11/16 08:33 98.2 71 18 157/78 (104) 95 10/11/16 05:54 98.1 68 18 164/81 (108) 96 10/11/16 04:00 10/11/16 00:00 10/10/16 23:56 98.1 74 18 138/71 (93) 96 10/10/16 20:00 98.3 74 18 183/87 (119) 95 10/10/16 17:05 98.0 73 18 168/80 (109) 96 10/11/16 10/11/16 10/12/16 15:00 23:00 07:00 Output Total 900 ml Balance -900 ml Output Urine Total 900 ml . Laboratory Tests Test 10/10/16 20:28 Erythrocyte Sedimentation Rate 92 mm/hr Laboratory Tests Test 10/10/16 09:38 10/10/16 20:25 10/11/16 07:10 Blood Urea Nitrogen 17 MG/DL 18 MG/DL Creatinine 1.20 MG/DL 1.06 MG/DL Random Glucose 222 MG/DL 180 MG/DL Calcium Level 8.9 MG/DL 8.8 MG/DL Sodium Level 132 MEQ/L 135 MEQ/L Potassium Level 5.1 MEQ/L 4.7 MEQ/L Chloride Level 99 MEQ/L 102 MEQ/L Carbon Dioxide Level 25.3 MEQ/L 25.8 MEQ/L Anion Gap 8 MEQ/L 7 MEQ/L Estimat Glomerular Filtration Rate 63 ML/MIN 72 ML/MIN C-Reactive Protein 11.00 MG/DL Microbiology Date/Time Source Procedure Growth Status 10/09/16 00:00 Wound Toe Fungal Smear - Final NO FUNGAL ELEMENTS SEEN. Resulted 10/09/16 00:00 Wound Toe Fungal Culture Pending Resulted 10/09/16 00:00 Wound Toe Acid Fast Stain - Final NO ACID FAST BACILLI SEEN Resulted 10/09/16 00:00 Wound Toe Mycobacterial Culture Pending Resulted 10/09/16 00:00 Wound Toe Gram Stain - Final Resulted 10/09/16 00:00 Wound Culture - Preliminary Gram Negative Adeel Resulted Physical Exam GENERAL: awake and alert, not in respiratory distress. SKIN: Warm and dry. No generalized rash, no ecchymoses and no evidence of embolic lesions. HEAD: Atraumatic. Normocephalic. No temporal wasting, or tenderness. EYES: [place] conjunctiva. No petechia or hemorrhage. Pupils equal, round and reactive to light. Extraocular movements full and intact. No scleral icterus. No injection or drainage. EARS, NOSE AND THROAT: Nose without bleeding or purulent nasal discharge. No sinus tenderness. Mucous membranes pink and moist. No oral lesions noted. No oral thrush. NECK: Trachea midline. Supple and not tender, no meningeal signs CARDIOVASCULAR: Regular rate and rhythm. No murmurs, rubs or gallops heard RESPIRATORY: Clear to auscultation. Breath sounds equal bilaterally. No rales , wheezing or rhonchi. He has decreased breath sounds at bases ABDOMEN: Globular and protuberant, distended, not tender. Bowel sounds present and normoactive. No guarding. No rebound. EXTREMITIES: He is S/P LBKA and has the sleeve and prosthesis in place. He has dry and intact dressing with wound vac on lateral aspect of his R foot. No cellulitis or lymphangitis seen on his R leg or R thigh. No R calf tenderness. NEUROLOGICAL: Awake and alert. Cranial nerves grossly intact. Motor grossly within normal limits. PSYCHIATRIC: Normal affect, calm and cooperative. LINE: No evidence of infection Assessment & Plan Remarks IMPRESSION Diabetic foot wound, poor healing S/P partial 5th ray amputation September 14, 2016 - S/P revision, intraop C/S with GNR Known PAD and previous revascularization S/P LBKA for wet gangrene DM, HTN RECOMMENDATION Continue Zosyn - increase dose Add Levaquin GNR now growing well, did not grown in chocolate media so microscan cannot be done; needs to subculture and hopefully set up microscan tomorrow and susceptibility testing available on Saturday Will follow C/S I will determine course of Rx PICC tomorrow Once C/S finalized, will determine IV Abx choice on D/C Will need 6 weeks IV Abx Explained plan to patient D/W Dr Nilo Adkins covering for sd 10/12-10/14 Evelyn Ayala MD Oct 11, 2016 14:11
[2016-10-11 16:45] VITALS: BP 160/76; PULSE 70; RESP 18; TEMP 97.9; O2SAT 96
[2016-10-11] MEDS: PIPERACIL-TAZO 4.5 GM PREMIX 100 ML IV SCH ×2 (17:27→23:41)
--- NOTE | 2016-10-11 20:08 | PD.POD ---
Subjective Podiatric Problems s/p revision R 5th partial ray amputation 07/09/16 Dr Grimes Past Med/Surg/Social History Past Surgical History Gastrointestinal: DENIES HX OF: Colectomy, total Breast: DENIES HX OF: Mastectomy, bilateral, Mastectomy, left, Mastectomy, right Social History Smoking Status: Never Smoker Objective Vital Signs Vital Signs Date Time Temp Pulse Resp B/P (MAP) Pulse Ox O2 Delivery O2 Flow Rate FiO2 10/11/16 16:45 97.9 70 18 160/76 (104) 96 10/11/16 12:44 98.1 72 18 157/71 (99) 94 10/11/16 08:33 98.2 71 18 157/78 (104) 95 10/11/16 05:54 98.1 68 18 164/81 (108) 96 10/11/16 04:00 10/11/16 00:00 10/10/16 23:56 98.1 74 18 138/71 (93) 96 Coded Allergies: No Known Allergies (Unverified , 10/08/16) Physical Exam Remarks R lateral foot wound vac changed. Bone biopsy retrieved from R residual 5th metatarsal with bone rongeur for specimen. swab also taken. Sutures intact. No purulence, Mild maceration. Assessment & Plan A/P s/p revision R partial 5th ray amputation Took sample of residual 5th metatarsal bone and sent to pathology for analysis. Sent bone for culture Swab culture taken, as well Changed vac dressing. Will await results and plan to change vac and observe wound again Saturday to determine if ok for d/c vs vascular eval/treatment based on viability of wound/foot. Dorothea Grimes DPM Oct 11, 2016 20:08
[2016-10-11] MEDS: LISINOPRIL 20 MG TAB PO SCH (21:51)
[2016-10-11] MEDS: ATORVASTATIN 80 MG TAB PO SCH (21:51)
[2016-10-12] VITALS: BP 165/83; PULSE 74; RESP 18; TEMP 98.4; O2SAT 94
[2016-10-12] MEDS: HYDROmorphone HCL PF 1 MG/ML VIAL IV PUSH PRN ×5 (01:05→18:40)
[2016-10-12 04:00] VITALS: BP 132/63; PULSE 70; RESP 18; TEMP 98.2; O2SAT 94
[2016-10-12] MEDS: PIPERACIL-TAZO 4.5 GM PREMIX 100 ML IV SCH ×3 (06:13→17:15)
[2016-10-12] MEDS: INSULIN ASPART SUPPLEMENTAL SCALE SQ SCH ×4 (06:22→19:50)
[2016-10-12] MEDS: HYDROCHLOROTHIAZIDE 25 MG TAB PO SCH (07:28)
[2016-10-12] MEDS: ACETAMINOPHEN/HYDROcodone 325 MG/5 MG TAB PO PRN ×4 (07:28→20:47)
[2016-10-12] MEDS: LISINOPRIL 20 MG TAB PO SCH ×2 (07:28→20:26)
[2016-10-12 08:00] VITALS: BP 121/68; PULSE 72; RESP 17; TEMP 99.7; O2SAT 93
[2016-10-12] MEDS: SODIUM CHLORIDE 0.9% FLUSH 10 ML FLUSH IV FLUSH SCH (09:00)
[2016-10-12] MEDS ORDERED: SODIUM CHLORIDE 0.9% FLUSH 10 ML FLUSH IV FLUSH PRN ×2 (11:15→13:00)
--- NOTE | 2016-10-12 11:46 | RADRPT ---
EXAM DATE/TIME: 10/12/2016 11:05 [place] COMPARISON: No previous studies available for comparison. INDICATIONS : Post PICC Line Placement. MEDICAL HISTORY : Hypertension. Diabetes mellitus type 2. SURGICAL HISTORY : Rt foot partial amputation ENCOUNTER: Subsequent ACUITY: 4 - 6 days PAIN SCORE: 0/10 LOCATION: Bilateral chest FINDINGS: Portable AP view of the chest obtained during expiration demonstrates mildly enlarged cardiac silhoue tte size. Right upper extremity PICC is present with distal tip in the right atrium. There is atelect asis at the bases. No effusion, consolidation, or pneumothorax is seen. Bones demonstrate no acute fi nding. CONCLUSION: Right upper extremity PICC distal tip in the right atrium. Sampson Shaw MD on October 12, 2016 at 11:44 Board Certified Radiologist. This report was verified electronically.
[2016-10-12 12:00] VITALS: BP 145/71; PULSE 68; RESP 18; TEMP 98; O2SAT 92
--- NOTE | 2016-10-12 13:40 | HHI.PR ---
Subjective Remarks doing well. Objective Vitals heart reg lung cta abd s/nt ext rue picc left bka, right lat foot wound vac Vital Signs Date Time Temp Pulse Resp B/P (MAP) Pulse Ox O2 Delivery O2 Flow Rate FiO2 10/12/16 08:00 99.7 72 17 121/68 (85) 93 10/12/16 04:00 98.2 70 18 132/63 (86) 94 10/12/16 00:00 98.4 74 18 165/83 (110) 94 10/11/16 16:45 97.9 70 18 160/76 (104) 96 10/12/16 10/12/16 10/13/16 14:59 22:59 06:59 Intake Total 100 ml Output Total 620 ml Balance -520 ml IV Total 100 ml Output Urine Total 620 ml Result Diagram: 10/09/16 0405 10/11/16 0710 A/P Problem List: (1) Non-healing ulcer of foot with necrosis of muscle ICD Codes: L97.503 - Non-pressure chronic ulcer of other part of unspecified foot with necrosis of muscle Status: Acute Plan: - Pt is a 56 y/o WM with type 2 DM, PAD s/p left BKA, who was previously hospitalized in August 2016 for a nonhealing wound to the right lateral foot. Podiatry had swabbed the area and apparently grew enterobacter. Pt had an MRI foot (09/12) which noted diffuse cellulitis involving the right fifth toe as well as some edema and enhancement of the head of the right fifth metatarsal as well as the right fifth phalanges raising the possibility of osteomyelitis. He was seen by podiatry and Vascular surgery and had an angiogram on 09/14 with noted good flow in the RLE. Pt underwent amputation of right 5th toe and partial ray amputation with necrotic head on 09/[address] Grimes. No growth came of those surgical cx's He followed up with Dr. Rose as an outpt and states that he was treated with another round of antibiotics, he believes was Clindamycin for 7 days which he just completed yesterday. Last week he had a debridement with Dr. Rose of the right lateral foot wound but this has not been healing well. Pt was sent to see Dr. Redman for wound care and pt was sent to the ED for admission for podiatry consultation for debridement and possible wound vac placement. MRI foot shows osteo of residual 5th metatarsal. Started antibiotics with Zosyn. On 10/09 resection of the residual 5th metatarsal..apparently non necrotic hard bone found. Podiatry felt IV abx are needed and wound vac.IDconsulted to get opinion on the body die maker iv abx. f/ u surgical cx's..light growth gnr picc placed 10/12. await final abx cx/s on Saturday. Unlikely that we can get home abx coordinated until Saturday. (2) DM (diabetes mellitus) ICD Codes: E11.9 - Type 2 diabetes mellitus without complications Status: Chronic Plan: - Hold home meds - NovoLog SSI - Accu checks (3) HTN (hypertension) ICD Codes: I10 - Essential (primary) hypertension Status: Chronic Plan: - Hold Lisinopril due to hyperkalemia - Cont. HCTZ - Repeat labs in AM - Monitor BP (4) Hypertriglyceridemia ICD Codes: E78.1 - Hypertriglyceridemia Status: Chronic (5) Obesity ICD Codes: E66.9 - Obesity Status: Chronic Problem Qualifiers (1) Non-healing ulcer of foot with necrosis of muscle: Qualified Codes: L97.513 - Non-pressure chronic ulcer of other part of right foot with necrosis of muscle (2) DM (diabetes mellitus): Abhinav Coleman MD Oct 12, 2016 13:40
[2016-10-12 16:00] VITALS: BP 163/76; PULSE 66; RESP 20; TEMP 97.5; O2SAT 98
[2016-10-12 20:00] VITALS: BP 140/61; PULSE 71; RESP 18; TEMP 98; O2SAT 94
[2016-10-12] MEDS: ATORVASTATIN 80 MG TAB PO SCH (20:25)
[2016-10-13] VITALS: BP 149/90; PULSE 73; RESP 18; TEMP 98.2; O2SAT 94
[2016-10-13] MEDS: ACETAMINOPHEN/HYDROcodone 325 MG/5 MG TAB PO PRN ×4 (00:57→18:25)
[2016-10-13] MEDS: PIPERACIL-TAZO 4.5 GM PREMIX 100 ML IV SCH ×4 (00:58→17:04)
[2016-10-13] MEDS: HYDROmorphone HCL PF 1 MG/ML VIAL IV PUSH PRN ×4 (04:33→20:01)
[2016-10-13 05:46] VITALS: BP 177/82; PULSE 75; RESP 20; TEMP 97.9; O2SAT 94
[2016-10-13] MEDS: INSULIN ASPART SUPPLEMENTAL SCALE SQ SCH ×4 (06:34→20:04)
[2016-10-13 08:00] VITALS: BP 179/82; PULSE 68; RESP 17; TEMP 97.8; O2SAT 94
[2016-10-13] MEDS: LISINOPRIL 20 MG TAB PO SCH ×2 (08:44→20:00)
[2016-10-13] MEDS: HYDROCHLOROTHIAZIDE 25 MG TAB PO SCH (08:45)
[2016-10-13] MEDS: SODIUM CHLORIDE 0.9% FLUSH 10 ML FLUSH IV FLUSH SCH ×2 (08:45→10:16)
--- NOTE | 2016-10-13 10:25 | HHI.PR ---
Subjective Remarks constipated. passing flatus Objective Vitals heart reg lung cta abd soft/bs/nt ext left bka right foot wound vac Vital Signs Date Time Temp Pulse Resp B/P (MAP) Pulse Ox O2 Delivery O2 Flow Rate FiO2 10/13/16 08:00 97.8 68 17 179/82 (114) 94 10/13/16 05:46 97.9 75 20 177/82 (113) 94 10/13/16 05:03 18 10/13/16 00:00 98.2 73 18 149/90 (109) 94 10/13/16 00:00 98.2 73 18 149/90 (109) 94 10/12/16 20:00 98.0 71 18 140/61 (87) 94 10/12/16 16:00 97.5 66 20 163/76 (105) 98 10/12/16 12:00 98.0 68 18 145/71 (95) 92 Result Diagram: 10/09/16 0405 10/11/16 0710 A/P Problem List: (1) Non-healing ulcer of foot with necrosis of muscle ICD Codes: L97.503 - Non-pressure chronic ulcer of other part of unspecified foot with necrosis of muscle Status: Acute Plan: - Pt is a 56 y/o WM with type 2 DM, PAD s/p left BKA, who was previously hospitalized in August 2016 for a nonhealing wound to the right lateral foot. Podiatry had swabbed the area and apparently grew enterobacter. Pt had an MRI foot (09/12) which noted diffuse cellulitis involving the right fifth toe as well as some edema and enhancement of the head of the right fifth metatarsal as well as the right fifth phalanges raising the possibility of osteomyelitis. He was seen by podiatry and Vascular surgery and had an angiogram on 09/14 with noted good flow in the RLE. Pt underwent amputation of right 5th toe and partial ray amputation with necrotic head on 09/[address] Grimes. No growth came of those surgical cx's He followed up with Dr. Rose as an outpt and states that he was treated with another round of antibiotics, he believes was Clindamycin for 7 days which he just completed yesterday. Last week he had a debridement with Dr. Rose of the right lateral foot wound but this has not been healing well. Pt was sent to see Dr. Redman for wound care and pt was sent to the ED for admission for podiatry consultation for debridement and possible wound vac placement. MRI foot shows osteo of residual 5th metatarsal. Started antibiotics with Zosyn. On 10/09 resection of the residual 5th metatarsal..apparently non necrotic hard bone found. Podiatry felt IV abx are needed and wound vac.IDconsulted to get opinion on the [facility] iv abx. f/ u surgical cx's..light growth gnr picc placed 10/12. await final abx cx/s on Saturday. Unlikely that we can get home abx coordinated until Saturday. laxatives added today. (2) DM (diabetes mellitus) ICD Codes: E11.9 - Type 2 diabetes mellitus without complications Status: Chronic Plan: - Hold home meds - NovoLog SSI - Accu checks (3) HTN (hypertension) ICD Codes: I10 - Essential (primary) hypertension Status: Chronic Plan: - Hold Lisinopril due to hyperkalemia - Cont. HCTZ - Repeat labs in AM - Monitor BP (4) Hypertriglyceridemia ICD Codes: E78.1 - Hypertriglyceridemia Status: Chronic (5) Obesity ICD Codes: E66.9 - Obesity Status: Chronic Problem Qualifiers (1) Non-healing ulcer of foot with necrosis of muscle: Qualified Codes: L97.513 - Non-pressure chronic ulcer of other part of right foot with necrosis of muscle (2) DM (diabetes mellitus): Abhinav Coleman MD Oct 13, 2016 10:25
[2016-10-13] MEDS ORDERED: BISACODYL EC 5 MG TABEC PO ONE (10:45)
[2016-10-13] MEDS ORDERED: LACTULOSE SYRUP 20 GM/30 ML CUP PO ONE (10:45)
[2016-10-13 12:00] VITALS: BP 164/74; PULSE 70; RESP 18; TEMP 98.2; O2SAT 97
[2016-10-13] MEDS ORDERED: LACTULOSE SYRUP 20 GM/30 ML CUP PO PRN (13:00)
[2016-10-13 16:00] VITALS: BP 155/77; PULSE 65; RESP 16; TEMP 98.3; O2SAT 97
--- NOTE | 2016-10-13 16:55 | PD.POD ---
Subjective Podiatric Problems s/p revision R 5th partial ray amputation 07/09/16 Dr Grimes Past Med/Surg/Social History Past Surgical History Gastrointestinal: DENIES HX OF: Colectomy, total Breast: DENIES HX OF: Mastectomy, bilateral, Mastectomy, left, Mastectomy, right Social History Smoking Status: Never Smoker Objective Vital Signs Vital Signs Date Time Temp Pulse Resp B/P (MAP) Pulse Ox O2 Delivery O2 Flow Rate FiO2 10/13/16 12:00 98.2 70 18 164/74 (104) 97 10/13/16 08:00 97.8 68 17 179/82 (114) 94 10/13/16 05:46 97.9 75 20 177/82 (113) 94 10/13/16 05:03 18 10/13/16 00:00 98.2 73 18 149/90 (109) 94 10/13/16 00:00 98.2 73 18 149/90 (109) 94 10/12/16 20:00 98.0 71 18 140/61 (87) 94 Coded Allergies: No Known Allergies (Unverified , 10/08/16) Physical Exam Remarks No necrosis, but viability questionable and incision areas not beginning to coapt. Maceration to proximal incision area Assessment & Plan A/P s/p revision R partial 5th ray amputation Awaiting biopsy and cultures from residual 5th metatarsal bone Changed vac dressing. Wrote very specific vac dressing change instructions to begin Saturday/Sat/Sat and continue upon d/c Orders for wound vac in front of patient's paper chart. I think patient should have eval for any possible vascular procedure with Dr Brooks to heal wound while in-house or I fear patient will be right back in for another nonhealing wound or infection. It is macerated and questionable for healing potential at today's exam. Dorothea Grimes DPM Oct 13, 2016 16:55
[2016-10-13] MEDS: ATORVASTATIN 80 MG TAB PO SCH (20:00)
[2016-10-13] MEDS: DOCUSATE SODIUM 100 MG CAP PO SCH (20:00)
[2016-10-13 21:07] VITALS: BP 147/73; PULSE 73; RESP 18; TEMP 97.9; O2SAT 100
[2016-10-14] VITALS (7 sets, daily range): BP systolic 152–186; BP diastolic 68–87; PULSE 64–74; RESP 17–18; TEMP 97.1–98.2; O2SAT 94–100
[2016-10-14] MEDS: ACETAMINOPHEN/HYDROcodone 325 MG/5 MG TAB PO PRN ×4 (00:24→16:19)
[2016-10-14] MEDS: PIPERACIL-TAZO 4.5 GM PREMIX 100 ML IV SCH ×3 (01:09→11:32)
[2016-10-14] MEDS: HYDROmorphone HCL PF 1 MG/ML VIAL IV PUSH PRN ×5 (01:42→21:38)
[2016-10-14] MEDS: INSULIN ASPART SUPPLEMENTAL SCALE SQ SCH ×4 (06:35→21:42)
[2016-10-14] MEDS: LISINOPRIL 20 MG TAB PO SCH ×2 (08:47→21:40)
[2016-10-14] MEDS: HYDROCHLOROTHIAZIDE 25 MG TAB PO SCH (08:48)
[2016-10-14] MEDS: DOCUSATE SODIUM 100 MG CAP PO SCH ×2 (08:49→21:40)
[2016-10-14] MEDS: SODIUM CHLORIDE 0.9% FLUSH 10 ML FLUSH IV FLUSH SCH ×2 (09:00)
--- NOTE | 2016-10-14 10:33 | HHI.PR ---
Subjective Remarks pt doing ok. no complaints Objective Vitals heart reg lung cta abd s/nt ext left bka right lat foot wound vac Vital Signs Date Time Temp Pulse Resp B/P (MAP) Pulse Ox O2 Delivery O2 Flow Rate FiO2 10/14/16 08:00 98.2 64 17 157/74 (101) 94 10/14/16 04:01 97.6 74 18 152/68 (96) 100 10/14/16 02:12 18 10/14/16 00:40 97.6 67 18 153/74 (100) 100 10/13/16 21:07 97.9 73 18 147/73 (97) 100 10/13/16 16:00 98.3 65 16 155/77 (103) 97 10/13/16 12:00 98.2 70 18 164/74 (104) 97 Result Diagram: 10/11/16 0710 A/P Problem List: (1) Non-healing ulcer of foot with necrosis of muscle ICD Codes: L97.503 - Non-pressure chronic ulcer of other part of unspecified foot with necrosis of muscle Status: Acute Plan: - Pt is a 56 y/o WM with type 2 DM, PAD s/p left BKA, who was previously hospitalized in August 2016 for a nonhealing wound to the right lateral foot. Podiatry had swabbed the area and apparently grew enterobacter. Pt had an MRI foot (09/12) which noted diffuse cellulitis involving the right fifth toe as well as some edema and enhancement of the head of the right fifth metatarsal as well as the right fifth phalanges raising the possibility of osteomyelitis. He was seen by podiatry and Vascular surgery and had an angiogram on 09/14 with noted good flow in the RLE. Pt underwent amputation of right 5th toe and partial ray amputation with necrotic head on 09/[address] Grimes. No growth came of those surgical cx's He followed up with Dr. Rose as an outpt and states that he was treated with another round of antibiotics, he believes was Clindamycin for 7 days which he just completed yesterday. Last week he had a debridement with Dr. Rose of the right lateral foot wound but this has not been healing well. Pt was sent to see Dr. Redman for wound care and pt was sent to the ED for admission for podiatry consultation for debridement and possible wound vac placement. MRI foot shows osteo of residual 5th metatarsal. Started antibiotics with Zosyn. On 10/09 resection of the residual 5th metatarsal..apparently non necrotic hard bone found. Podiatry felt IV abx are needed and wound vac.IDconsulted to get opinion on the [facility] iv abx. f/ u surgical cx's..light growth gnr picc placed 10/12. await final cx ID/S and ID recommendations. Will need to get home abx arranged through [facility] pharmacy on Saturday and send [facility] to house. Discussed wound appearance with Dr Grimes...She is not happy with the progress and would like Dr Brooks to reevaluate the wound Saturday to see if any intervention required before d/c home. (2) DM (diabetes mellitus) ICD Codes: E11.9 - Type 2 diabetes mellitus without complications Status: Chronic Plan: - Hold home meds - NovoLog SSI - Accu checks (3) HTN (hypertension) ICD Codes: I10 - Essential (primary) hypertension Status: Chronic Plan: home meds monitor for hyperkalemia (4) Hypertriglyceridemia ICD Codes: E78.1 - Hypertriglyceridemia Status: Chronic (5) Obesity ICD Codes: E66.9 - Obesity Status: Chronic Problem Qualifiers (1) Non-healing ulcer of foot with necrosis of muscle: Qualified Codes: L97.513 - Non-pressure chronic ulcer of other part of right foot with necrosis of muscle (2) DM (diabetes mellitus): Abhinav Coleman MD Oct 14, 2016 10:33
[2016-10-14] MEDS ORDERED: ASP: Path resistant to other antimicrobials, culture proven PRN (17:00)
[2016-10-14] MEDS ORDERED: MISCELLANEOUS PHARMACY INFORMATION XX PRN (17:00)
--- NOTE | 2016-10-14 18:53 | HHI.PR ---
Addendum to Inpatient Note Addendum Reason: Additional Documentation Additional Information dw Clinically stable. Cultures positive today for Achromobacter (resistant to Cefepime, Zosyn) Start Meropenem IV (ASP: resistant Achromobacter infection of foot) Clinically foot not improved likely because the Zosyn is resistant. recommend eval by ortho again for further debridement. to resume care on 10/15/16. Karine Adkins MD Oct 14, 2016 18:53
[2016-10-14] MEDS: ATORVASTATIN 80 MG TAB PO SCH (21:40)
[2016-10-14] MEDS: MEROPENEM INJ 500 MG in SODIUM CHLORIDE 0.9% INJ 100 ML IV SCH (21:45)
[2016-10-15] VITALS (7 sets, daily range): BP systolic 150–185; BP diastolic 67–86; PULSE 62–75; RESP 18–20; TEMP 97.5–98.1; O2SAT 94–99
[2016-10-15] MEDS: ACETAMINOPHEN/HYDROcodone 325 MG/5 MG TAB PO PRN ×5 (00:11→21:16)
[2016-10-15] MEDS: cloNIDine HCL 0.1 MG TAB PO PRN ×2 (01:41→23:39)
[2016-10-15] MEDS: HYDROmorphone HCL PF 1 MG/ML VIAL IV PUSH PRN ×6 (01:42→23:39)
[2016-10-15] MEDS: MEROPENEM INJ 500 MG in SODIUM CHLORIDE 0.9% INJ 100 ML IV SCH ×2 (04:13→12:08)
[2016-10-15] MEDS: INSULIN ASPART SUPPLEMENTAL SCALE SQ SCH ×4 (06:31→21:18)
[2016-10-15 07:38] LABS: BICARBONATE 27.1 MEQ/L (21.0-32.0)
--- NOTE | 2016-10-15 08:44 | PD.POD ---
Subjective Pain score: 2 Remarks Doing well, understands the plan, awaiting vascular input. Past Med/Surg/Social History Past Surgical History Gastrointestinal: DENIES HX OF: Colectomy, total Breast: DENIES HX OF: Mastectomy, bilateral, Mastectomy, left, Mastectomy, right Social History Smoking Status: Never Smoker Objective Vital Signs Vital Signs Date Time Temp Pulse Resp B/P (MAP) Pulse Ox O2 Delivery O2 Flow Rate FiO2 10/15/16 07:43 18 10/15/16 05:16 18 10/15/16 01:40 75 18 182/86 (118) 99 10/15/16 00:00 97.8 63 20 185/81 (115) 94 10/14/16 21:35 97.9 74 18 186/87 (120) 97 10/14/16 20:00 97.1 74 18 182/83 (116) 97 10/14/16 16:00 97.4 67 17 152/72 (98) 99 10/14/16 12:00 97.9 67 17 173/79 (110) 96 Coded Allergies: No Known Allergies (Unverified , 10/08/16) Medications and IVs Administered Medications Medications (Trade) Dose Ordered Sig/Win Route PRN Reason Start Time Stop Time Status Last Admin Dose Admin Atorvastatin Calcium (Lipitor) 80 mg HS PO 10/08/16 21:00 10/14/16 21:40 Insulin Aspart (NovoLOG SUPPLEMENTAL SCALE) 1 ACHS SLIDING SCALE SQ 10/08/16 16:00 10/15/16 06:31 Hydrochlorothiazide (Hydrodiuril) 25 mg DAILY PO 10/09/16 09:00 10/14/16 08:48 Clonidine (Catapres) 0.1 mg Q4H PRN PO sbp > 170 10/09/16 10:30 10/15/16 01:41 Acetaminophen/ Hydrocodone Bitart ([place] 5-325 Mg) 2 tab Q4H PRN PO pain 6-10 10/10/16 10:30 10/15/16 06:30 Hydromorphone HCl (Dilaudid Pf Inj) 1 mg Q2H PRN IV PUSH breakthrough pain over 7 10/10/16 10:30 10/15/16 04:14 Lisinopril (Prinivil) 20 mg Q12HR PO 10/11/16 21:00 10/14/16 21:40 Sodium Chloride (NS Flush) See Protocol DAILY IV FLUSH 10/12/16 09:00 10/14/16 09:00 Heparin Sodium (Porcine) (Heparin Central Flush) See Protocol DAILY IV FLUSH 10/12/16 09:00 10/14/16 09:00 Sodium Chloride (NS Flush) See Protocol DAILY IV FLUSH 10/13/16 09:00 10/13/16 10:16 Heparin Sodium (Porcine) (Heparin Central Flush) See Protocol DAILY IV FLUSH 10/13/16 09:00 10/13/16 08:40 Docusate Sodium (Colace) 100 mg BID PO 10/13/16 21:00 10/14/16 21:40 Meropenem 500 mg/ Sodium Chloride 100 ml @ 200 mls/hr Q8H IV 10/14/16 20:00 10/15/16 04:13 Other Results Bone path pending. Exam-Podiatry Remarks Left BKA. Right lateral foot mildly fibrotic wound with distal ischemic changes to the dorsal flap, sutures intact, no odor, mild redness, no exposed bone, toes 1 2 3 4 pink, sensation absent to ankle and distal Assessment & Plan A/P s/p revision R partial 5th ray amputation Awaiting biopsy and cultures from residual 5th metatarsal bone, continue IV ABX Woundvac removed, awaiting Dr Brooks to eval later today, hold wound vac for now, apply later today. Wound is struggling to heal. May need more debridement. Shaggy Rose DPM Oct 15, 2016 08:44
[2016-10-15] MEDS: HYDROCHLOROTHIAZIDE 25 MG TAB PO SCH (08:45)
[2016-10-15] MEDS: DOCUSATE SODIUM 100 MG CAP PO SCH ×2 (08:45→21:15)
[2016-10-15] MEDS: LISINOPRIL 20 MG TAB PO SCH ×2 (08:45→21:15)
[2016-10-15] MEDS: SODIUM CHLORIDE 0.9% FLUSH 10 ML FLUSH IV FLUSH SCH ×2 (08:47→08:58)
--- NOTE | 2016-10-15 10:26 | PD.VS.PN ---
Subjective Subjective/Hospital Course Pt in bed alert in NAD Pt denies pain Dressing to Right foot I/C/D (Janet Bender) Objective Vitals/I&O Date Time Temp Pulse Resp B/P (MAP) Pulse Ox O2 Delivery O2 Flow Rate FiO2 10/15/16 08:39 97.5 63 20 168/80 (109) 97 10/15/16 07:43 18 10/15/16 05:16 18 10/15/16 01:40 75 18 182/86 (118) 99 10/15/16 00:00 97.8 63 20 185/81 (115) 94 10/14/16 21:35 97.9 74 18 186/87 (120) 97 10/14/16 20:00 97.1 74 18 182/83 (116) 97 10/14/16 16:00 97.4 67 17 152/72 (98) 99 10/14/16 12:00 97.9 67 17 173/79 (110) 96 10/15/16 10/15/16 10/15/16 06:59 14:59 22:59 Output Total 1925 ml 1000 ml Balance -1925 ml -1000 ml Physical Exam GENERAL: A&OX3, GCS15 SKIN: Warm and dry/ Right lateral foot mildly fibrotic Sutures intact, wound w/o odor and mild redness present VASCULAR: L BKA, hx of Right palpable DP Monophasic PT heard via Doppler Non palpable Femoral pulses R LE warm/ motor intact (Janet Bender) Laboratory Laboratory Tests Test 10/15/16 06:40 Blood Urea Nitrogen 24 Creatinine 0.97 Random Glucose 216 Calcium Level 8.8 Sodium Level 136 Potassium Level 5.0 Chloride Level 103 Carbon Dioxide Level 27.1 Anion Gap 6 Estimat Glomerular Filtration Rate 80 Date/Time Source Procedure Growth Status 10/08/16 13:05 Blood Peripheral Aerobic Blood Culture - Final Bacillus Species Not Anthracis Complete 10/08/16 13:05 Blood Peripheral Anaerobic Blood Culture - Final NO GROWTH IN 5 DAYS Complete 10/11/16 19:00 Other Acid Fast Stain - Final NO ACID FAST BACILLI SEEN Resulted 10/11/16 19:00 Other Mycobacterial Culture Pending Resulted (Janet Bender) Assessment and Plan Assessment: (1) Non-healing ulcer of foot with necrosis of muscle Status: Acute (2) Peripheral vascular disease Status: Chronic (3) Diabetes type 2, uncontrolled Status: Chronic (4) HTN (hypertension) Status: Chronic (5) DM (diabetes mellitus) Status: Chronic (6) Hypercholesteremia Status: Chronic Plan Pt with questionable healing of right 5th partial ray amputation Pt w/ Monophasic R PT R LE warm/motor intact Plan Discussed potential Angiogram for this week w/ Dr. Todd [facility]/[place] [phone] Discharge Planning (Janet Bender) Plan Reviewed angiogram. Given wound is not progressing, will attempt endovascular reconstruction of pedal arch this week, tentatively . (Otis Brooks MD) Problem Qualifiers (1) Non-healing ulcer of foot with necrosis of muscle: Qualified Codes: L97.513 - Non-pressure chronic ulcer of other part of right foot with necrosis of muscle (2) DM (diabetes mellitus): Janet Bender Oct 15, 2016 10:26 Otis Brooks MD Oct 15, 2016 14:25
--- NOTE | 2016-10-15 14:11 | HHI.PR ---
Subjective Remarks Pt overall feeling better He is concerned about his blood sugars as they have been running high Denies any abd pain, N/V, chest pain or SOB Tolerating diet well. Objective Vitals Vital Signs Date Time Temp Pulse Resp B/P (MAP) Pulse Ox O2 Delivery O2 Flow Rate FiO2 10/15/16 11:35 98.0 69 20 168/80 (109) 97 10/15/16 08:39 97.5 63 20 168/80 (109) 97 10/15/16 07:43 18 10/15/16 05:16 18 10/15/16 01:40 75 18 182/86 (118) 99 10/15/16 00:00 97.8 63 20 185/81 (115) 94 10/14/16 21:35 97.9 74 18 186/87 (120) 97 10/14/16 20:00 97.1 74 18 182/83 (116) 97 10/14/16 16:00 97.4 67 17 152/72 (98) 99 10/15/16 10/15/16 10/16/16 15:00 23:00 07:00 Intake Total 100 ml Output Total 1800 ml Balance -1700 ml IV Total 100 ml Output Urine Total 1800 ml Result Diagram: 10/15/16 0640 Other Results Laboratory Tests Test 10/15/16 06:40 Blood Urea Nitrogen 24 MG/DL Creatinine 0.97 MG/DL Random Glucose 216 MG/DL Calcium Level 8.8 MG/DL Sodium Level 136 MEQ/L Potassium Level 5.0 MEQ/L Chloride Level 103 MEQ/L Carbon Dioxide Level 27.1 MEQ/L Anion Gap 6 MEQ/L Estimat Glomerular Filtration Rate 80 ML/MIN Imaging Last Impressions Chest X-Ray 10/12/16 0000 Signed Impressions: Service Date/Time: Wednesday, October 12, 2016 11:05 - CONCLUSION: Right upper extremity PICC distal tip in the right atrium. Sapmson Shaw MD Foot MRI 10/08/16 0000 Signed Impressions: Service Date/Time: Saturday, October 08, 2016 16:39 - CONCLUSION: 1. Amputation of the majority of the fifth metatarsal and fifth toe. 2. Osteomyelitis of the remaining proximal and mid fifth metatarsal. Levy Sebastian MD Objective Remarks General: NAD, AAOx3 Chest: CTA Cardiac: Regular Abd: +BS, soft ND/NT Ext: Left BKA, right foot bandages are c/d/i A/P Problem List: (1) Non-healing ulcer of foot with necrosis of muscle ICD Codes: L97.503 - Non-pressure chronic ulcer of other part of unspecified foot with necrosis of muscle Status: Acute Plan: - Pt is a 56 y/o WM with type 2 DM, PAD s/p left BKA, who was previously hospitalized in August 2016 for a nonhealing wound to the right lateral foot. Podiatry had swabbed the area and apparently grew Enterobacter. - Pt had an MRI foot (09/12) which noted diffuse cellulitis involving the right fifth toe as well as some edema and enhancement of the head of the right fifth metatarsal as well as the right fifth phalanges raising the possibility of osteomyelitis. He was seen by podiatry and Vascular surgery and had an angiogram on 09/14 with noted good flow in the RLE. Pt underwent amputation of right 5th toe and partial ray amputation with necrotic head on 09/[address] Grimes. No growth came of those surgical cx's - He followed up with Dr. Rose as an outpt and states that he was treated with another round of antibiotics, he believes was Clindamycin for 7 days which he completed the day prior to admission. - Last week he had a debridement with Dr. Rose of the right lateral foot wound but this has not been healing well. Pt was sent to see Dr. Redman for wound care and pt was sent to the ED for admission for podiatry consultation for debridement and possible wound vac placement. - MRI foot (10/08) --> Amputation of the majority of the fifth metatarsal and fifth toe. Osteomyelitis of the remaining proximal and mid fifth metatarsal. - Pt was started on antibiotics with Zosyn. - On 10/09 he underwent resection of the residual 5th metatarsal, and apparently there was non necrotic hard bone found. - Podiatry felt IV abx were needed and wound vac. - ID consulted to get opinion on the [facility] iv abx. - Surgical cx's (10/09) --> Achromobacter Xyl/[place]..light growth gnr - PICC placed 10/12. - Antibiotics changed to Meropenem on 10/14 - Wound does not appear to be healing well. - Vascular surgery was consulted for opinion and pt likely to have angiogram on with Dr. Brooks - Pain control PRN - Constipation precautions - Supportive care (2) DM (diabetes mellitus) ICD Codes: E11.9 - Type 2 diabetes mellitus without complications Status: Chronic Plan: - Hold home meds - NovoLog SSI - Blood sugars are running high - Add Levemir 10 units BID - Accu checks (3) HTN (hypertension) ICD Codes: I10 - Essential (primary) hypertension Status: Chronic Plan: home meds monitor for hyperkalemia (4) Hypertriglyceridemia ICD Codes: E78.1 - Hypertriglyceridemia Status: Chronic (5) Obesity ICD Codes: E66.9 - Obesity Status: Chronic Assessment and Plan Patient examined. Assessment and plan formulated with Megha Mcfarland PA-C. I agree with the above. Problem Qualifiers (1) Non-healing ulcer of foot with necrosis of muscle: Qualified Codes: L97.513 - Non-pressure chronic ulcer of other part of right foot with necrosis of muscle (2) DM (diabetes mellitus): Megha Mcfarland Oct 15, 2016 14:10 Willy Portillo DO Oct 18, 2016 01:03
--- NOTE | 2016-10-15 17:09 | HHI.IDPN ---
Subjective Subjective Remarks Patient is a 56-year-old male, with diabetes, PAD, had undergone partial ray amputation of the fifth metatarsal right foot last September 14, 2016, admitted to the hospital for further management of his right foot wound. When the patient was discharge during his last admission, he was given Cipro. The intraoperative cultures during that admission was negative. But there was an admission culture that had normal skin jacqueline. Pathology report showed the inflammatory process extended into the margin of the soft tissue. Bone biopsy was done of the residual metatarsal and it was negative for osteomyelitis. His sedimentation rate then was 63, C-reactive protein was 4.4. Patient had a follow-up with his [employer] spacelift, and when the sutures were removed, the patient stated that he had debridement. He was put on a second course of antibiotics, and he was referred to [facility] wound care center further follow-up and possibly wound VAC placement. On the day of admission, patient was seen in the wound care center, and he was seen by Dr. Redman who recommended that he go to the hospital for further management and debridement. He complaints of some foot pain. He denies any fever or chills or sweats. He has not noticed any redness on his right foot or any redness going up his right leg. He completed his last course of antibiotics about 2 days prior to coming into the hospital. He has not had any nausea or vomiting or any diarrhea. On this admission, he is afebrile. His WBC is hurting 0.6. Patient underwent revision amputation on the right foot, and placement of a wound VAC. Infectious disease consultation has been requested to make recommendation regarding treatment. Notes reviewed No complaints No fever Path report C/W acute osteo C/S with Achromobacter ESR 92 CRP 11 WBC down to normal Waiting for vascular evaluation Antibiotics Meropenem Lines PICC Past Medical History Diabetes mellitus, type 2 HTN PAD Nonhealing wound, right foot Past Surgical History L BKA 2013 Previous revascularizations LE for PAD Partial ray 5th MT amputation August 2016 Allergies: Coded Allergies: No Known Allergies (Unverified , 10/08/16) Objective . Vital Signs Date Time Temp Pulse Resp B/P (MAP) Pulse Ox O2 Delivery O2 Flow Rate FiO2 10/15/16 16:26 98.1 65 20 151/67 (95) 94 10/15/16 11:35 98.0 69 20 168/80 (109) 97 10/15/16 08:39 97.5 63 20 168/80 (109) 97 10/15/16 07:43 18 10/15/16 05:16 18 10/15/16 01:40 75 18 182/86 (118) 99 10/15/16 00:00 97.8 63 20 185/81 (115) 94 10/14/16 21:35 97.9 74 18 186/87 (120) 97 10/14/16 20:00 97.1 74 18 182/83 (116) 97 10/15/16 10/15/16 10/16/16 14:59 22:59 06:59 Intake Total 100 ml 480 ml Output Total 2400 ml Balance -2300 ml 480 ml Intake Oral 480 ml IV Total 100 ml Output Urine Total 2400 ml . Laboratory Tests Test 10/15/16 06:40 Blood Urea Nitrogen 24 MG/DL Creatinine 0.97 MG/DL Random Glucose 216 MG/DL Calcium Level 8.8 MG/DL Sodium Level 136 MEQ/L Potassium Level 5.0 MEQ/L Chloride Level 103 MEQ/L Carbon Dioxide Level 27.1 MEQ/L Anion Gap 6 MEQ/L Estimat Glomerular Filtration Rate 80 ML/MIN Imaging Chest X-Ray 10/12/16 0000 Signed Impressions: Service Date/Time: Wednesday, October 12, 2016 11:05 - CONCLUSION: Right upper extremity PICC distal tip in the right atrium. Sampson Shaw MD Foot MRI 10/08/16 0000 Signed Impressions: Service Date/Time: Saturday, October 08, 2016 16:39 - CONCLUSION: 1. Amputation of the majority of the fifth metatarsal and fifth toe. 2. Osteomyelitis of the remaining proximal and mid fifth metatarsal. Levy Sebastian MD Physical Exam GENERAL: awake and alert, not in respiratory distress. SKIN: Warm and dry. No generalized rash HEAD: Atraumatic. Normocephalic. No temporal wasting, or tenderness. EYES: [place] conjunctiva. No petechia or hemorrhage. . No scleral icterus. No injection or drainage. EARS, NOSE AND THROAT: Nose without bleeding or purulent nasal discharge. No sinus tenderness. Mucous membranes pink and moist. NECK: Trachea midline. Supple and not tender, no meningeal signs CARDIOVASCULAR: Regular rate and rhythm. No murmurs, rubs or gallops heard RESPIRATORY: Clear to auscultation. Breath sounds equal bilaterally. No rales , wheezing or rhonchi. He has decreased breath sounds at bases ABDOMEN: Globular and protuberant, distended, not tender. Bowel sounds present and normoactive. No guarding. No rebound. EXTREMITIES: He is S/P LBKA and has the sleeve and prosthesis in place. Incision lateral aspect R foot loosely closed, has a small black area that is about the size of a dime, no purulence, no odor. No cellulitis or lymphangitis seen on his R leg or R thigh. No R calf tenderness. NEUROLOGICAL: Awake and alert. Cranial nerves grossly intact. Motor grossly within normal limits. PSYCHIATRIC: Normal affect, calm and cooperative. LINE: No evidence of infection Assessment & Plan Remarks IMPRESSION Diabetic foot wound, poor healing S/P partial 5th ray amputation September 14, 2016 - S/P revision, intraop C/S with Achromobacter Known PAD and previous revascularization S/P LBKA for wet gangrene DM, HTN RECOMMENDATION Stop Merem Will use Fortaz/levaquin combination Vascular evaluation Monitor progress Needs 6 weeks IV Abx Explained plan to patient D/W Evelyn Villalpando MD Oct 15, 2016 17:09
[2016-10-15] MEDS: LEVOFLOXACIN 750 MG TAB PO SCH (18:14)
[2016-10-15] MEDS ORDERED: cefTAZidime INJ 2,000 MG in SODIUM CHLORIDE 0.9% INJ 100 ML IV SCH (20:00)
[2016-10-15] MEDS: ATORVASTATIN 80 MG TAB PO SCH (21:00)
[2016-10-15] MEDS: INSULIN DETEMIR 100 UNITS/ML VIAL SQ SCH (21:19)
[2016-10-15] MEDS: cefTAZidime INJ 2,000 MG in SODIUM CHLORIDE 0.9% INJ 100 ML IV SCH (21:30)
[2016-10-16 01:09] VITALS: BP 181/78; PULSE 68; RESP 20; TEMP 98.6; O2SAT 95
[2016-10-16] MEDS: ACETAMINOPHEN/HYDROcodone 325 MG/5 MG TAB PO PRN ×5 (01:54→22:49)
[2016-10-16] MEDS: cloNIDine HCL 0.1 MG TAB PO PRN (04:17)
[2016-10-16] MEDS: cefTAZidime INJ 2,000 MG in SODIUM CHLORIDE 0.9% INJ 100 ML IV SCH ×3 (04:18→21:26)
[2016-10-16] MEDS: HYDROmorphone HCL PF 1 MG/ML VIAL IV PUSH PRN ×4 (04:18→21:31)
[2016-10-16 05:53] VITALS: BP 152/72; PULSE 64; RESP 20; TEMP 98.1; O2SAT 94
[2016-10-16] MEDS: INSULIN ASPART SUPPLEMENTAL SCALE SQ SCH ×4 (06:02→21:34)
[2016-10-16 06:25] LABS: AUTOMATED NEUTROPHIL # 5.6 TH/MM3 (1.8-7.7); BASOPHIL % 0.5 % (0.0-2.0); EOSINOPHIL # 0.3 TH/MM3 (0-0.4); EOSINOPHIL % 3.4 % (0.0-4.0); HEMO FLAGS DIFF FINAL; LYMPH % 21.3 % (9.0-44.0); LYMPHOCYTE # 1.8 TH/MM3 (1.0-4.8); MEAN CELL VOLUME 89.7 FL (80.0-100.0); MEAN CORPUSCULAR HGB CONC 32.4 % (32.0-36.0); MONO % 7.3 % (0.0-8.0); NEUT % 67.5 % (16.0-70.0); PLATELET COUNT 235 TH/MM3 (150-450); RED CELL DISTRIBUTION WIDTH 13.8 % (11.6-17.2); WHITE BLOOD COUNT 8.3 TH/MM3 (4.0-11.0)
[2016-10-16 06:50] LABS: BICARBONATE 27.9 MEQ/L (21.0-32.0); MAGNESIUM 1.9 MG/DL (1.5-2.5)
[2016-10-16] MEDS: HYDROCHLOROTHIAZIDE 25 MG TAB PO SCH (08:23)
[2016-10-16] MEDS: LEVOFLOXACIN 750 MG TAB PO SCH (08:23)
[2016-10-16] MEDS: LISINOPRIL 20 MG TAB PO SCH ×2 (08:23→21:30)
[2016-10-16] MEDS: DOCUSATE SODIUM 100 MG CAP PO SCH ×2 (08:23→21:30)
[2016-10-16] MEDS: INSULIN DETEMIR 100 UNITS/ML VIAL SQ SCH ×2 (08:28→21:35)
[2016-10-16 08:39] VITALS: BP 138/66; PULSE 63; RESP 20; TEMP 98.3; O2SAT 97
[2016-10-16] MEDS: SODIUM CHLORIDE 0.9% FLUSH 10 ML FLUSH IV FLUSH SCH ×2 (09:00)
[2016-10-16 12:38] VITALS: BP 134/65; PULSE 62; RESP 20; TEMP 98.2; O2SAT 97
--- NOTE | 2016-10-16 16:25 | HHI.PR ---
Subjective Remarks No new complaints. BP is stable BS still running high Wound vac replaced last night Objective Vitals Vital Signs Date Time Temp Pulse Resp B/P (MAP) Pulse Ox O2 Delivery O2 Flow Rate FiO2 10/16/16 12:38 98.2 62 20 134/65 (88) 97 10/16/16 08:39 98.3 63 20 138/66 (90) 97 10/16/16 07:22 18 10/16/16 05:53 98.1 64 20 152/72 (98) 94 10/16/16 05:08 18 10/16/16 01:09 98.6 68 20 181/78 (112) 95 10/15/16 23:41 97.9 62 20 150/83 (105) 96 10/15/16 20:43 98.1 67 20 179/83 (115) 96 10/15/16 16:26 98.1 65 20 151/67 (95) 94 Result Diagram: 10/16/16 0604 10/16/16 0604 Other Results Laboratory Tests Test 10/15/16 06:40 10/16/16 06:04 Blood Urea Nitrogen 24 MG/DL 21 MG/DL Creatinine 0.97 MG/DL 1.00 MG/DL Random Glucose 216 MG/DL 223 MG/DL Calcium Level 8.8 MG/DL 8.7 MG/DL Sodium Level 136 MEQ/L 137 MEQ/L Potassium Level 5.0 MEQ/L 5.0 MEQ/L Chloride Level 103 MEQ/L 101 MEQ/L Carbon Dioxide Level 27.1 MEQ/L 27.9 MEQ/L Anion Gap 6 MEQ/L 8 MEQ/L Estimat Glomerular Filtration Rate 80 ML/MIN 77 ML/MIN White Blood Count 8.3 TH/MM3 Red Blood Count 3.90 MIL/MM3 Hemoglobin 11.3 GM/DL Hematocrit 35.0 % Mean Corpuscular Volume 89.7 FL Mean Corpuscular Hemoglobin 29.0 PG Mean Corpuscular Hemoglobin Concent 32.4 % Red Cell Distribution Width 13.8 % Platelet Count 235 TH/MM3 Mean Platelet Volume 8.7 FL Neutrophils (%) (Auto) 67.5 % Lymphocytes (%) (Auto) 21.3 % Monocytes (%) (Auto) 7.3 % Eosinophils (%) (Auto) 3.4 % Basophils (%) (Auto) 0.5 % Neutrophils # (Auto) 5.6 TH/MM3 Lymphocytes # (Auto) 1.8 TH/MM3 Monocytes # (Auto) 0.6 TH/MM3 Eosinophils # (Auto) 0.3 TH/MM3 Basophils # (Auto) 0.0 TH/MM3 CBC Comment DIFF FINAL Differential Comment Magnesium Level 1.9 MG/DL Imaging Last Impressions Chest X-Ray 10/12/16 0000 Signed Impressions: Service Date/Time: Wednesday, October 12, 2016 11:05 - CONCLUSION: Right upper extremity PICC distal tip in the right atrium. Sampson Shaw MD Foot MRI 10/08/16 0000 Signed Impressions: Service Date/Time: Saturday, October 08, 2016 16:39 - CONCLUSION: 1. Amputation of the majority of the fifth metatarsal and fifth toe. 2. Osteomyelitis of the remaining proximal and mid fifth metatarsal. Levy Sebastian MD Objective Remarks General: NAD, AAOx3 Chest: CTA Cardiac: Regular Abd: +BS, soft ND/NT Ext: Left BKA, wound vac in place A/P Problem List: (1) Non-healing ulcer of foot with necrosis of muscle ICD Codes: L97.503 - Non-pressure chronic ulcer of other part of unspecified foot with necrosis of muscle Status: Acute Plan: - Pt is a 56 y/o WM with type 2 DM, PAD s/p left BKA, who was previously hospitalized in August 2016 for a nonhealing wound to the right lateral foot. Podiatry had swabbed the area and apparently grew Enterobacter. - Pt had an MRI foot (09/12) which noted diffuse cellulitis involving the right fifth toe as well as some edema and enhancement of the head of the right fifth metatarsal as well as the right fifth phalanges raising the possibility of osteomyelitis. He was seen by podiatry and Vascular surgery and had an angiogram on 09/14 with noted good flow in the RLE. Pt underwent amputation of right 5th toe and partial ray amputation with necrotic head on 09/[address] Grimes. No growth came of those surgical cx's - He followed up with Dr. Rose as an outpt and states that he was treated with another round of antibiotics, he believes was Clindamycin for 7 days which he completed the day prior to admission. - Last week he had a debridement with Dr. Rose of the right lateral foot wound but this has not been healing well. Pt was sent to see Dr. Redman for wound care and pt was sent to the ED for admission for podiatry consultation for debridement and possible wound vac placement. - MRI foot (10/08) --> Amputation of the majority of the fifth metatarsal and fifth toe. Osteomyelitis of the remaining proximal and mid fifth metatarsal. - Pt was started on antibiotics with Zosyn. - On 10/09 he underwent resection of the residual 5th metatarsal, and apparently there was non necrotic hard bone found. - Podiatry felt IV abx were needed and wound vac. - ID consulted to get opinion on the terminologist iv abx. - Surgical cx's (10/09) --> Achromobacter Xyl/[place]..light growth gnr - PICC placed 10/12. - Antibiotics changed to Meropenem on 10/14 - Antibiotics changed to Fortaz/Levaquin combination on 10/15 - Wound does not appear to be healing well. Wound vac placed back on last night. - Vascular surgery following and they will attempt endovascular reconstruction of pedal arch this week, tentatively - Pain control PRN - Constipation precautions - Supportive care (2) DM (diabetes mellitus) ICD Codes: E11.9 - Type 2 diabetes mellitus without complications Status: Chronic Plan: - Hold home meds - NovoLog SSI - Blood sugars are continuing to run high in the mid s - Increase Levemir to 15 units BID - Accu checks (3) HTN (hypertension) ICD Codes: I10 - Essential (primary) hypertension Status: Chronic Plan: home meds monitor for hyperkalemia (4) Hypertriglyceridemia ICD Codes: E78.1 - Hypertriglyceridemia Status: Chronic (5) Obesity ICD Codes: E66.9 - Obesity Status: Chronic Assessment and Plan Patient examined. Assessment and plan formulated with Megha Mcfarland PA-C. I agree with the above. Problem Qualifiers (1) Non-healing ulcer of foot with necrosis of muscle: Qualified Codes: L97.513 - Non-pressure chronic ulcer of other part of right foot with necrosis of muscle (2) DM (diabetes mellitus): Megha Mcfarland Oct 16, 2016 16:25 Willy Portillo DO Oct 18, 2016 01:04
[2016-10-16 16:39] VITALS: BP 157/73; PULSE 61; RESP 20; TEMP 98.1; O2SAT 94
[2016-10-16 20:00] VITALS: BP 155/73; PULSE 66; RESP 20; TEMP 98.1; O2SAT 94
[2016-10-16] MEDS: ATORVASTATIN 80 MG TAB PO SCH (21:30)
[2016-10-17 00:24] VITALS: BP 138/65; PULSE 63; RESP 18; TEMP 97.7; O2SAT 97
[2016-10-17] MEDS: HYDROmorphone HCL PF 1 MG/ML VIAL IV PUSH PRN ×4 (00:29→23:21)
[2016-10-17 04:25] VITALS: BP 138/66; PULSE 62; RESP 18; TEMP 97.5; O2SAT 97
[2016-10-17] MEDS: ACETAMINOPHEN/HYDROcodone 325 MG/5 MG TAB PO PRN ×3 (04:28→22:07)
[2016-10-17] MEDS: cefTAZidime INJ 2,000 MG in SODIUM CHLORIDE 0.9% INJ 100 ML IV SCH ×3 (04:31→22:07)
[2016-10-17] MEDS: INSULIN ASPART SUPPLEMENTAL SCALE SQ SCH ×4 (07:00→22:29)
[2016-10-17 08:00] VITALS: BP 156/76; PULSE 65; RESP 16; TEMP 97.3; O2SAT 96
[2016-10-17 08:18] LABS: AUTOMATED NEUTROPHIL # 6.8 TH/MM3 (1.8-7.7); BASOPHIL % 0.4 % (0.0-2.0); EOSINOPHIL # 0.2 TH/MM3 (0-0.4); EOSINOPHIL % 2.5 % (0.0-4.0); HEMATOCRIT 36.5 % (39.0-51.0); HEMO FLAGS DIFF FINAL; LYMPH % 18.8 % (9.0-44.0); LYMPHOCYTE # 1.8 TH/MM3 (1.0-4.8); MEAN CELL VOLUME 90.2 FL (80.0-100.0); MEAN CORPUSCULAR HEMOGLOBIN 29.9 PG (27.0-34.0); MEAN CORPUSCULAR HGB CONC 33.2 % (32.0-36.0); NEUT % 72.3 % (16.0-70.0); PLATELET COUNT 233 TH/MM3 (150-450); RED BLOOD COUNT 4.05 MIL/MM3 (4.50-5.90); RED CELL DISTRIBUTION WIDTH 13.9 % (11.6-17.2); WHITE BLOOD COUNT 9.4 TH/MM3 (4.0-11.0)
[2016-10-17 08:27] LABS: BICARBONATE 27.8 MEQ/L (21.0-32.0); POTASSIUM 4.9 MEQ/L (3.5-5.1)
[2016-10-17] MEDS: INSULIN DETEMIR 100 UNITS/ML VIAL SQ SCH ×2 (09:00→22:30)
[2016-10-17] MEDS: SODIUM CHLORIDE 0.9% FLUSH 10 ML FLUSH IV FLUSH SCH ×4 (09:00→18:12)
[2016-10-17] MEDS: DOCUSATE SODIUM 100 MG CAP PO SCH ×2 (09:12→22:06)
[2016-10-17] MEDS: LISINOPRIL 20 MG TAB PO SCH ×2 (09:12→22:06)
[2016-10-17] MEDS: HYDROCHLOROTHIAZIDE 25 MG TAB PO SCH (09:13)
[2016-10-17] MEDS: LEVOFLOXACIN 750 MG TAB PO SCH (09:13)
--- NOTE | 2016-10-17 10:14 | PD.VS.PN ---
Subjective Subjective/Hospital Course Pt in bed alert in NAD Girlfriend at the BS Pt denies pain Right foot with wound vac intact Dressing to R foot I/C/D Objective Vitals/I&O Date Time Temp Pulse Resp B/P (MAP) Pulse Ox O2 Delivery O2 Flow Rate FiO2 10/17/16 08:00 97.3 65 16 156/76 (102) 96 10/17/16 04:25 97.5 62 18 138/66 (90) 97 10/17/16 00:59 18 10/17/16 00:24 97.7 63 18 138/65 (89) 97 10/17/16 00:13 18 10/16/16 20:00 98.1 66 20 155/73 (100) 94 10/16/16 16:39 98.1 61 20 157/73 (101) 94 10/16/16 12:38 98.2 62 20 134/65 (88) 97 Laboratory Laboratory Tests Test 10/17/16 07:45 White Blood Count 9.4 Red Blood Count 4.05 Hemoglobin 12.1 Hematocrit 36.5 Mean Corpuscular Volume 90.2 Mean Corpuscular Hemoglobin 29.9 Mean Corpuscular Hemoglobin Concent 33.2 Red Cell Distribution Width 13.9 Platelet Count 233 Mean Platelet Volume 9.3 Neutrophils (%) (Auto) 72.3 Lymphocytes (%) (Auto) 18.8 Monocytes (%) (Auto) 6.0 Eosinophils (%) (Auto) 2.5 Basophils (%) (Auto) 0.4 Neutrophils # (Auto) 6.8 Lymphocytes # (Auto) 1.8 Monocytes # (Auto) 0.6 Eosinophils # (Auto) 0.2 Basophils # (Auto) 0.0 CBC Comment DIFF FINAL Differential Comment Blood Urea Nitrogen 23 Creatinine 1.19 Random Glucose 214 Calcium Level 8.6 Magnesium Level 2.0 Sodium Level 135 Potassium Level 4.9 Chloride Level 101 Carbon Dioxide Level 27.8 Anion Gap 6 Estimat Glomerular Filtration Rate 63 Date/Time Source Procedure Growth Status 10/08/16 13:05 Blood Peripheral Aerobic Blood Culture - Final Bacillus Species Not Anthracis Complete 10/08/16 13:05 Blood Peripheral Anaerobic Blood Culture - Final NO GROWTH IN 5 DAYS Complete 10/11/16 19:00 Other Acid Fast Stain - Final NO ACID FAST BACILLI SEEN Resulted 10/11/16 19:00 Other Mycobacterial Culture Pending Resulted Assessment and Plan Assessment: (1) Non-healing ulcer of foot with necrosis of muscle Status: Acute (2) Peripheral vascular disease Status: Chronic (3) Diabetes type 2, uncontrolled Status: Chronic (4) HTN (hypertension) Status: Chronic (5) DM (diabetes mellitus) Status: Chronic (6) Hypercholesteremia Status: Chronic Plan Reviewed angiogram. Given wound is not progressing, will attempt endovascular reconstruction of pedal arch this week, tentatively . Plan Pt Marked for surgical intervention tomorrow am w/ Dr. Brooks NPO after midnight Pt aware of plan and all questions were answered Consent placed in the chart Janet SOTO [facility] [phone] Discharge Planning Problem Qualifiers (1) Non-healing ulcer of foot with necrosis of muscle: Qualified Codes: L97.513 - Non-pressure chronic ulcer of other part of right foot with necrosis of muscle (2) DM (diabetes mellitus): Janet Bender Oct 17, 2016 10:14
--- NOTE | 2016-10-17 10:34 | HHI.PR ---
Subjective Remarks Blood glucose reading this morning was improved to 185 No new complaints. Pt has been afebrile BP is stable Objective Vitals Vital Signs Date Time Temp Pulse Resp B/P (MAP) Pulse Ox O2 Delivery O2 Flow Rate FiO2 10/17/16 08:00 97.3 65 16 156/76 (102) 96 10/17/16 04:25 97.5 62 18 138/66 (90) 97 10/17/16 00:59 18 10/17/16 00:24 97.7 63 18 138/65 (89) 97 10/17/16 00:13 18 10/16/16 20:00 98.1 66 20 155/73 (100) 94 10/16/16 16:39 98.1 61 20 157/73 (101) 94 10/16/16 12:38 98.2 62 20 134/65 (88) 97 Result Diagram: 10/17/16 0745 10/17/16 0745 Other Results Laboratory Tests Test 10/16/16 06:04 10/17/16 07:45 White Blood Count 8.3 TH/MM3 9.4 TH/MM3 Red Blood Count 3.90 MIL/MM3 4.05 MIL/MM3 Hemoglobin 11.3 GM/DL 12.1 GM/DL Hematocrit 35.0 % 36.5 % Mean Corpuscular Volume 89.7 FL 90.2 FL Mean Corpuscular Hemoglobin 29.0 PG 29.9 PG Mean Corpuscular Hemoglobin Concent 32.4 % 33.2 % Red Cell Distribution Width 13.8 % 13.9 % Platelet Count 235 TH/MM3 233 TH/MM3 Mean Platelet Volume 8.7 FL 9.3 FL Neutrophils (%) (Auto) 67.5 % 72.3 % Lymphocytes (%) (Auto) 21.3 % 18.8 % Monocytes (%) (Auto) 7.3 % 6.0 % Eosinophils (%) (Auto) 3.4 % 2.5 % Basophils (%) (Auto) 0.5 % 0.4 % Neutrophils # (Auto) 5.6 TH/MM3 6.8 TH/MM3 Lymphocytes # (Auto) 1.8 TH/MM3 1.8 TH/MM3 Monocytes # (Auto) 0.6 TH/MM3 0.6 TH/MM3 Eosinophils # (Auto) 0.3 TH/MM3 0.2 TH/MM3 Basophils # (Auto) 0.0 TH/MM3 0.0 TH/MM3 CBC Comment DIFF FINAL DIFF FINAL Differential Comment Blood Urea Nitrogen 21 MG/DL 23 MG/DL Creatinine 1.00 MG/DL 1.19 MG/DL Random Glucose 223 MG/DL 214 MG/DL Calcium Level 8.7 MG/DL 8.6 MG/DL Magnesium Level 1.9 MG/DL 2.0 MG/DL Sodium Level 137 MEQ/L 135 MEQ/L Potassium Level 5.0 MEQ/L 4.9 MEQ/L Chloride Level 101 MEQ/L 101 MEQ/L Carbon Dioxide Level 27.9 MEQ/L 27.8 MEQ/L Anion Gap 8 MEQ/L 6 MEQ/L Estimat Glomerular Filtration Rate 77 ML/MIN 63 ML/MIN Imaging Last Impressions Chest X-Ray 10/12/16 0000 Signed Impressions: Service Date/Time: Wednesday, October 12, 2016 11:05 - CONCLUSION: Right upper extremity PICC distal tip in the right atrium. Sampson Shaw MD Foot MRI 10/08/16 0000 Signed Impressions: Service Date/Time: Saturday, October 08, 2016 16:39 - CONCLUSION: 1. Amputation of the majority of the fifth metatarsal and fifth toe. 2. Osteomyelitis of the remaining proximal and mid fifth metatarsal. Levy Sebastian MD Objective Remarks General: NAD, AAOx3 Chest: CTA Cardiac: Regular Abd: +BS, soft ND/NT Ext: Left BKA, wound vac in place A/P Problem List: (1) Non-healing ulcer of foot with necrosis of muscle ICD Codes: L97.503 - Non-pressure chronic ulcer of other part of unspecified foot with necrosis of muscle Status: Acute Plan: - Pt is a 56 y/o WM with type 2 DM, PAD s/p left BKA, who was previously hospitalized in August 2016 for a nonhealing wound to the right lateral foot. Podiatry had swabbed the area and apparently grew Enterobacter. - Pt had an MRI foot (09/12) which noted diffuse cellulitis involving the right fifth toe as well as some edema and enhancement of the head of the right fifth metatarsal as well as the right fifth phalanges raising the possibility of osteomyelitis. He was seen by podiatry and Vascular surgery and had an angiogram on 09/14 with noted good flow in the RLE. Pt underwent amputation of right 5th toe and partial ray amputation with necrotic head on 09/[address] Grimes. No growth came of those surgical cx's - He followed up with Dr. Rose as an outpt and states that he was treated with another round of antibiotics, he believes was Clindamycin for 7 days which he completed the day prior to admission. - Last week he had a debridement with Dr. Rose of the right lateral foot wound but this has not been healing well. Pt was sent to see Dr. Redman for wound care and pt was sent to the ED for admission for podiatry consultation for debridement and possible wound vac placement. - MRI foot (10/08) --> Amputation of the majority of the fifth metatarsal and fifth toe. Osteomyelitis of the remaining proximal and mid fifth metatarsal. - Pt was started on antibiotics with Zosyn. - On 10/09 he underwent resection of the residual 5th metatarsal, and apparently there was non necrotic hard bone found. - Podiatry felt IV abx were needed and wound vac. - ID consulted to get opinion on the alf iv abx. - Surgical cx's (10/09) --> Achromobacter Xyl/[place]..light growth gnr - PICC placed 10/12. - Antibiotics changed to Meropenem on 10/14 - Antibiotics changed to Fortaz/Levaquin combination on 10/15 - Wound does not appear to be healing well. Wound vac placed back on on 10/15 - Vascular surgery following and they will attempt endovascular reconstruction of pedal arch this week, tentatively - Pain control PRN - Constipation precautions - Supportive care (2) DM (diabetes mellitus) ICD Codes: E11.9 - Type 2 diabetes mellitus without complications Status: Chronic Plan: - Hold home meds - NovoLog SSI - Blood sugars this morning are slightly improved - Cont. Levemir to 15 units BID and monitor blood glucose today to see if we need to continue titrating up - Accu checks (3) HTN (hypertension) ICD Codes: I10 - Essential (primary) hypertension Status: Chronic Plan: - Cont. home meds - monitor for hyperkalemia (4) Hypertriglyceridemia ICD Codes: E78.1 - Hypertriglyceridemia Status: Chronic (5) Obesity ICD Codes: E66.9 - Obesity Status: Chronic Assessment and Plan Patient examined. Assessment and plan formulated with Megha FLORES I agree with the above. Blood sugar readings improved with increased levemir. case d/w Dr. Brooks (10/17/16). Planned for revascularization 10/18 Problem Qualifiers (1) Non-healing ulcer of foot with necrosis of muscle: Qualified Codes: L97.513 - Non-pressure chronic ulcer of other part of right foot with necrosis of muscle (2) DM (diabetes mellitus): Megha Mcfarlnad Oct 17, 2016 10:34 Willy Portillo DO Oct 18, 2016 01:06
[2016-10-17] MEDS: cloNIDine HCL 0.1 MG TAB PO PRN (11:55)
[2016-10-17 12:00] VITALS: BP 182/85; PULSE 64; RESP 16; TEMP 97.5; O2SAT 95
--- NOTE | 2016-10-17 12:51 | HHI.IDPN ---
Subjective Subjective Remarks Patient is a 56-year-old male, with diabetes, PAD, had undergone partial ray amputation of the fifth metatarsal right foot last September 14, 2016, admitted to the hospital for further management of his right foot wound. When the patient was discharge during his last admission, he was given Cipro. The intraoperative cultures during that admission was negative. But there was an admission culture that had normal skin jacqueline. Pathology report showed the inflammatory process extended into the margin of the soft tissue. Bone biopsy was done of the residual metatarsal and it was negative for osteomyelitis. His sedimentation rate then was 63, C-reactive protein was 4.4. Patient had a follow-up with his levi maker, and when the sutures were removed, the patient stated that he had debridement. He was put on a second course of antibiotics, and he was referred to [facility] [place] [facility] [place] further follow-up and possibly wound VAC placement. On the day of admission, patient was seen in the wound care center, and he was seen by Dr. Redman who recommended that he go to the hospital for further management and debridement. He complaints of some foot pain. He denies any fever or chills or sweats. He has not noticed any redness on his right foot or any redness going up his right leg. He completed his last course of antibiotics about 2 days prior to coming into the hospital. He has not had any nausea or vomiting or any diarrhea. On this admission, he is afebrile. His WBC is hurting 0.6. Patient underwent revision amputation on the right foot, and placement of a wound VAC. Infectious disease consultation has been requested to make recommendation regarding treatment. Notes reviewed Vascular work-up in progress To have vascular procedure tomorrow No complaints No fever Path report C/W acute osteo C/S with Achromobacter ESR 92 CRP 11 Antibiotics Fortaz Levaquin Lines PICC Past Medical History Diabetes mellitus, type 2 HTN PAD Nonhealing wound, right foot Past Surgical History L BKA 2013 Previous revascularizations LE for PAD Partial ray 5th MT amputation August 2016 Allergies: Coded Allergies: No Known Allergies (Unverified , 10/08/16) Objective . Vital Signs Date Time Temp Pulse Resp B/P (MAP) Pulse Ox O2 Delivery O2 Flow Rate FiO2 10/17/16 08:00 97.3 65 16 156/76 (102) 96 10/17/16 04:25 97.5 62 18 138/66 (90) 97 10/17/16 00:59 18 10/17/16 00:24 97.7 63 18 138/65 (89) 97 10/17/16 00:13 18 10/16/16 20:00 98.1 66 20 155/73 (100) 94 10/16/16 16:39 98.1 61 20 157/73 (101) 94 . Laboratory Tests Test 10/16/16 06:04 10/17/16 07:45 White Blood Count 8.3 TH/MM3 9.4 TH/MM3 Red Blood Count 3.90 MIL/MM3 4.05 MIL/MM3 Hemoglobin 11.3 GM/DL 12.1 GM/DL Hematocrit 35.0 % 36.5 % Mean Corpuscular Volume 89.7 FL 90.2 FL Mean Corpuscular Hemoglobin 29.0 PG 29.9 PG Mean Corpuscular Hemoglobin Concent 32.4 % 33.2 % Red Cell Distribution Width 13.8 % 13.9 % Platelet Count 235 TH/MM3 233 TH/MM3 Mean Platelet Volume 8.7 FL 9.3 FL Neutrophils (%) (Auto) 67.5 % 72.3 % Lymphocytes (%) (Auto) 21.3 % 18.8 % Monocytes (%) (Auto) 7.3 % 6.0 % Eosinophils (%) (Auto) 3.4 % 2.5 % Basophils (%) (Auto) 0.5 % 0.4 % Neutrophils # (Auto) 5.6 TH/MM3 6.8 TH/MM3 Lymphocytes # (Auto) 1.8 TH/MM3 1.8 TH/MM3 Monocytes # (Auto) 0.6 TH/MM3 0.6 TH/MM3 Eosinophils # (Auto) 0.3 TH/MM3 0.2 TH/MM3 Basophils # (Auto) 0.0 TH/MM3 0.0 TH/MM3 CBC Comment DIFF FINAL DIFF FINAL Differential Comment Laboratory Tests Test 10/16/16 06:04 10/17/16 07:45 Blood Urea Nitrogen 21 MG/DL 23 MG/DL Creatinine 1.00 MG/DL 1.19 MG/DL Random Glucose 223 MG/DL 214 MG/DL Calcium Level 8.7 MG/DL 8.6 MG/DL Magnesium Level 1.9 MG/DL 2.0 MG/DL Sodium Level 137 MEQ/L 135 MEQ/L Potassium Level 5.0 MEQ/L 4.9 MEQ/L Chloride Level 101 MEQ/L 101 MEQ/L Carbon Dioxide Level 27.9 MEQ/L 27.8 MEQ/L Anion Gap 8 MEQ/L 6 MEQ/L Estimat Glomerular Filtration Rate 77 ML/MIN 63 ML/MIN Imaging Chest X-Ray 10/12/16 0000 Signed Impressions: Service Date/Time: Wednesday, October 12, 2016 11:05 - CONCLUSION: Right upper extremity PICC distal tip in the right atrium. Sampson Shaw MD Foot MRI 10/08/16 0000 Signed Impressions: Service Date/Time: Saturday, October 08, 2016 16:39 - CONCLUSION: 1. Amputation of the majority of the fifth metatarsal and fifth toe. 2. Osteomyelitis of the remaining proximal and mid fifth metatarsal. Levy Sebastian MD Physical Exam GENERAL: awake and alert, not in respiratory distress. SKIN: Warm and dry. No generalized rash. EYES: Jaconita conjunctiva. No petechia or hemorrhage. . No scleral icterus. No injection or drainage. EARS, NOSE AND THROAT: Nose without bleeding or purulent nasal discharge. No sinus tenderness. Mucous membranes pink and moist. NECK: Trachea midline. Supple and not tender, no meningeal signs CARDIOVASCULAR: Regular rate and rhythm. No murmurs, rubs or gallops heard RESPIRATORY: Clear to auscultation. Breath sounds equal bilaterally. No rales , wheezing or rhonchi. He has decreased breath sounds at bases ABDOMEN: Globular and protuberant, distended, not tender. Bowel sounds present and normoactive. No guarding. No rebound. EXTREMITIES: He is S/P LBKA and has the sleeve and prosthesis in place. Incision lateral aspect R foot loosely closed, has a small black area that is about the size of a dime, no purulence, no odor. No cellulitis or lymphangitis seen on his R leg or R thigh. No R calf tenderness. NEUROLOGICAL: Awake and alert. Cranial nerves grossly intact. Motor grossly within normal limits. PSYCHIATRIC: Normal affect, calm and cooperative. LINE: No evidence of infection Assessment & Plan Remarks IMPRESSION Diabetic foot wound, poor healing S/P partial 5th ray amputation September 14, 2016 - S/P revision, intraop C/S with Achromobacter Known PAD and previous revascularization S/P LBKA for wet gangrene DM, HTN RECOMMENDATION Continue Fortaz/levaquin combination Vascular evaluation in progress I will fill out the Abx infusion form - will make adjustments if needed if he will require any other procedure from podiatry Monitor progress Needs 6 weeks IV Abx - anticipated end date is Nov 19 which is 6 weeks from his surgery - labs weekly while on IV Abx: CBC, creat, LFT - he will need ID follow-up with Evelyn French MD Oct 17, 2016 12:51
--- NOTE | 2016-10-17 12:54 | HHI.FF ---
Infusion Therapy Location of Infusion Therapy: Home Health Care IV Infusion Order Patient Information Patient Weight 122.5 kg Diagnosis: Diagnosis Osteomyelitis R foot, Achromobacter Coded Allergies: No Known Allergies (Unverified , 10/08/16) Administer Medication Fortaz 2 gm IV q8h via CADD plus pump or IV push Stop Treatment: Nov 19, 2016 Additional Information Venous access: PICC Line Additional Instructions [x] Peripheral flush and dressing changes per protocol [x] Implanted port and central pipe line walker: * Implanted port: 10 ml Normal Saline followed by 5 ml Heparin 100 units/ml Heparin flush after each use and monthly to maintain. [] May leave port accessed during therapy. [] May leave peripheral site accessed for duration of therapy. [x] If patient has SOB or respiratory distress, check oxygen saturation. If less than 90% or clinical signs of respiratory distress, administer oxygen at 2 L/min. via nasal cannula and notify physician. [x] Anaphylaxis/Reaction orders: * Stop infusion. * Keep IV line open with saline flush. * Notify physician. * Monitor vital signs every 15 minutes until symptoms resolve. * Check Oxygen saturation; Oxygen at 2 L/min. via nasal cannula if less than 90% or clinical signs of respiratory distress. * Administer diphenhydramine (Benadryl) 25 mg IV STAT, (unless patient has received as pre-med). May repeat once, if necessary. * Solu-Cortef 250 mg IVP over 30-60 seconds, use 100 mg vials for each dissolution. * Epinephrine (1mg/1 ml) 0.3 mg subcutaneously or IVP now with any signs of respiratory distress. * Check with physician for new additional pre-med orders if patient is re- challenged or re-treated. [x] May remove PICC line when treatment complete, after confirming with Physician. [x] If the patient is admitted to the hospital, the ED, or transferred via [facility] , complete transfer form including medication reconciliation order sheet. Laboratory Tests Weekly Labs: CBC w/diff, Creatinine, LFT's (Hepatic function test) (Labs every Saturday) Additional Information Please have patient follow-up and make appt with Dr Steff Lyons Please have labs sent to [facility] and Evelyn French MD Oct 17, 2016 12:54
[2016-10-17 16:00] VITALS: BP 179/86; PULSE 66; RESP 16; TEMP 97.8; O2SAT 98
[2016-10-17 20:00] VITALS: BP 182/85; PULSE 77; RESP 18; TEMP 97.4; O2SAT 97
[2016-10-17] MEDS: ATORVASTATIN 80 MG TAB PO SCH (22:06)
[2016-10-18] VITALS: BP 161/73; PULSE 66; RESP 20; TEMP 97.8; O2SAT 97
[2016-10-18] MEDS: HYDROmorphone HCL PF 1 MG/ML VIAL IV PUSH PRN ×5 (01:21→23:27)
[2016-10-18 04:00] VITALS: BP 118/68; PULSE 63; RESP 20; TEMP 98.3; O2SAT 97
[2016-10-18] MEDS: cefTAZidime INJ 2,000 MG in SODIUM CHLORIDE 0.9% INJ 100 ML IV SCH ×3 (05:32→23:16)
[2016-10-18] MEDS: INSULIN ASPART SUPPLEMENTAL SCALE SQ SCH ×4 (05:32→23:20)
[2016-10-18] MEDS ORDERED: INSULIN HUMAN REGULAR 1,000 UNITS/10 ML VIAL SQ PRN (06:45)
[2016-10-18] MEDS ORDERED: METOPROLOL TARTRATE 25 MG TAB PO PRN (06:45)
[2016-10-18] MEDS ORDERED: LACTATED RINGER'S 1000 ML IV PRN (06:45)
[2016-10-18] MEDS ORDERED: POVIDONE IODINE 5% (ANTISEPSIS KIT) 4 APPLICATIONS EACH NARE PRN (06:45)
[2016-10-18] MEDS ORDERED: CHLORHEXIDINE GLUCONATE 2 % 1 PACK (2 CLOTHS) TOPICAL PRN (06:45)
[2016-10-18] MEDS ORDERED: MIDAZOLAM HCL 2 MG/2 ML VIAL ONE (07:11)
[2016-10-18] MEDS ORDERED: FAMOTIDINE 20 MG/2 ML VIAL ONE (07:11)
[2016-10-18] MEDS ORDERED: HEPARIN SODIUM - IV 10,000 UNITS/10 ML VIAL ONE (07:12)
[2016-10-18] MEDS ORDERED: ACETAMINOPHEN 1000 MG/100 ML 100 ML IV ONE (07:22)
[2016-10-18] MEDS ORDERED: HYDROmorphone HCL PF 2 MG/ML VIAL ONE (07:22)
[2016-10-18] MEDS: INSULIN DETEMIR 100 UNITS/ML VIAL SQ SCH ×2 (09:00→23:21)
--- NOTE | 2016-10-18 09:23 | HHI.PR ---
Immediate Post Op Note Procedure Date: Oct 18, 2016 Pre Op Diagnosis: R LE tissue loss, PAD, DM Post Op Diagnosis: R LE tissue loss, PAD, DM Surgeon: Otis Brooks Catalyst Supervisor(s): none Procedure: 1. R LE angiogram 2. DELICATESSEN DEPARTMENT MANAGER of AT (3mm) and PT (2-2.5mm tapered) 3. L BRICK POINTER Angioseal 4. Debridement of R foot wound (skin and subq tissue, 20 sq cm) Findings: 1. Proximal AT stenosis, successful DELICATESSEN DEPARTMENT MANAGER (3mm) and runoff to foot including pedal arch 2. Multiple high grade PT stenoses, successful DELICATESSEN DEPARTMENT MANAGER 3. Pulsatile blood flow in wound, necrotic tissue debrided Complications: none apparent Specimen(s) removed: none for pathology Estimated blood loss: 10mL Anesthesia: General Drains: None Fluids: 800mL IVF Patient to: PACU Patient Condition: Good Implant/Devices: SEE IMPLANT LOG (if applicable) Date/Time of Procedure: SEE SURGICAL CARE RECORD Otis Brooks MD Oct 18, 2016 09:23
[2016-10-18] MEDS ORDERED: *morphine SULFATE 8 MG/ML PERIprocedure ONLY ONE (10:02)
[2016-10-18] MEDS ORDERED: *ENALAPRILAT 1.25 MG/ML VIAL PERIprocedural Use ONLY ONE (10:02)
[2016-10-18] MEDS ORDERED: DO NOT ADM ANY ANTICOAGULANT DRUGS PRN (10:15)
[2016-10-18] MEDS: DOCUSATE SODIUM 100 MG CAP PO SCH ×2 (11:11→23:13)
[2016-10-18] MEDS: LISINOPRIL 20 MG TAB PO SCH ×2 (11:11→23:13)
[2016-10-18] MEDS: ACETAMINOPHEN/HYDROcodone 325 MG/5 MG TAB PO PRN ×3 (11:11→23:14)
[2016-10-18] MEDS: LEVOFLOXACIN 750 MG TAB PO SCH (11:11)
[2016-10-18] MEDS: HYDROCHLOROTHIAZIDE 25 MG TAB PO SCH (11:12)
[2016-10-18 12:00] VITALS: BP 166/77; PULSE 76; RESP 17; TEMP 98.5; O2SAT 96
[2016-10-18] MEDS ORDERED: IOHEXOL 300 MG/ML 50 ML BTL (for RAD DIAG) IVCONTRAST ONE (12:00)
[2016-10-18] MEDS ORDERED: NEOSTIGMINE METHYLSULFATE 10 MG/10 ML VIAL IV PUSH ONE (12:00)
[2016-10-18] MEDS ORDERED: PROPOFOL 200 MG/20 ML AMP IV ONE (12:00)
[2016-10-18] MEDS ORDERED: ONDANSETRON HCL 4 MG/2 ML VIAL IV PUSH ONE (12:00)
[2016-10-18] MEDS ORDERED: ePHEDrine/NS 25 MG/5 ML SYR IV ONE (12:00)
--- NOTE | 2016-10-18 13:27 | HHI.PR ---
Subjective Remarks Pt s/p RLE angiogram today with Dr. Brooks and was found to have proximal AT stenosis s/p successful SPORTS EQUIPMENT RACKER (3mm) and runoff to foot including pedal arch, multiple high grade PT stenoses s/p successful SPORTS EQUIPMENT RACKER and pulsatile blood flow in the wound with necrotic tissue debrided Pt has been having continued pain in the right foot which is controlled with the 2 Avery and PRN IV Dilaudid for breakthrough His BP has been elevated but may be due to pain Objective Vitals Vital Signs Date Time Temp Pulse Resp B/P (MAP) Pulse Ox O2 Delivery O2 Flow Rate FiO2 10/18/16 12:00 98.5 76 17 166/77 (106) 96 10/18/16 10:30 98.2 63 15 151/62 (91) 96 Nasal Cannula 2 10/18/16 10:15 65 15 169/78 (108) 95 Nasal Cannula 2 10/18/16 10:07 15 10/18/16 10:00 65 15 182/86 (118) 95 Nasal Cannula 2 10/18/16 09:45 63 14 171/78 (109) 99 Nasal Cannula 3 10/18/16 09:35 97.9 62 14 186/81 (116) 98 Nasal Cannula 3 10/18/16 04:00 98.3 63 20 118/68 (85) 97 10/18/16 00:00 97.8 66 20 161/73 (102) 97 10/17/16 20:00 97.4 77 18 182/85 (117) 97 10/17/16 16:00 97.8 66 16 179/86 (117) 98 10/18/16 10/18/16 10/19/16 15:00 23:00 07:00 Intake Total 850 ml Output Total 535 ml Balance 315 ml IV Total 50 ml Other 800 ml Output Urine Total 525 ml Estimated Blood Loss 10 ml Result Diagram: 10/17/1645 10/17/16 0745 Other Results Laboratory Tests Test 10/17/16 07:45 White Blood Count 9.4 TH/MM3 Red Blood Count 4.05 MIL/MM3 Hemoglobin 12.1 GM/DL Hematocrit 36.5 % Mean Corpuscular Volume 90.2 FL Mean Corpuscular Hemoglobin 29.9 PG Mean Corpuscular Hemoglobin Concent 33.2 % Red Cell Distribution Width 13.9 % Platelet Count 233 TH/MM3 Mean Platelet Volume 9.3 FL Neutrophils (%) (Auto) 72.3 % Lymphocytes (%) (Auto) 18.8 % Monocytes (%) (Auto) 6.0 % Eosinophils (%) (Auto) 2.5 % Basophils (%) (Auto) 0.4 % Neutrophils # (Auto) 6.8 TH/MM3 Lymphocytes # (Auto) 1.8 TH/MM3 Monocytes # (Auto) 0.6 TH/MM3 Eosinophils # (Auto) 0.2 TH/MM3 Basophils # (Auto) 0.0 TH/MM3 CBC Comment DIFF FINAL Differential Comment Blood Urea Nitrogen 23 MG/DL Creatinine 1.19 MG/DL Random Glucose 214 MG/DL Calcium Level 8.6 MG/DL Magnesium Level 2.0 MG/DL Sodium Level 135 MEQ/L Potassium Level 4.9 MEQ/L Chloride Level 101 MEQ/L Carbon Dioxide Level 27.8 MEQ/L Anion Gap 6 MEQ/L Estimat Glomerular Filtration Rate 63 ML/MIN Imaging Last Impressions Chest X-Ray 10/12/16 0000 Signed Impressions: Service Date/Time: Wednesday, October 12, 2016 11:05 - CONCLUSION: Right upper extremity PICC distal tip in the right atrium. Sampson Shaw MD Foot MRI 10/08/16 0000 Signed Impressions: Service Date/Time: Saturday, October 08, 2016 16:39 - CONCLUSION: 1. Amputation of the majority of the fifth metatarsal and fifth toe. 2. Osteomyelitis of the remaining proximal and mid fifth metatarsal. Levy Sebastian MD Objective Remarks General: NAD, AAOx3 Chest: CTA Cardiac: Regular Abd: +BS, soft ND/NT Ext: Left BKA, right foot bandages are c/d/i A/P Problem List: (1) Non-healing ulcer of foot with necrosis of muscle ICD Codes: L97.503 - Non-pressure chronic ulcer of other part of unspecified foot with necrosis of muscle Status: Acute Plan: - Pt is a 56 y/o WM with type 2 DM, PAD s/p left BKA, who was previously hospitalized in August 2016 for a nonhealing wound to the right lateral foot. Podiatry had swabbed the area and apparently grew Enterobacter. - Pt had an MRI foot (09/12) which noted diffuse cellulitis involving the right fifth toe as well as some edema and enhancement of the head of the right fifth metatarsal as well as the right fifth phalanges raising the possibility of osteomyelitis. He was seen by podiatry and Vascular surgery and had an angiogram on 09/14 with noted good flow in the RLE. Pt underwent amputation of right 5th toe and partial ray amputation with necrotic head on 09/[address] Grimes. No growth came of those surgical cx's - He followed up with Dr. Rose as an outpt and states that he was treated with another round of antibiotics, he believes was Clindamycin for 7 days which he completed the day prior to admission. - Last week he had a debridement with Dr. Rose of the right lateral foot wound but this has not been healing well. Pt was sent to see Dr. Redman for wound care and pt was sent to the ED for admission for podiatry consultation for debridement and possible wound vac placement. - MRI foot (10/08) --> Amputation of the majority of the fifth metatarsal and fifth toe. Osteomyelitis of the remaining proximal and mid fifth metatarsal. - Pt was started on antibiotics with Zosyn. - On 10/09 he underwent resection of the residual 5th metatarsal, and apparently there was non necrotic hard bone found. - Podiatry felt IV abx were needed and wound vac. - ID consulted to get opinion on the assisted iv abx. - Surgical cx's (10/09) --> Achromobacter Xyl/Freedom..light growth gnr - PICC placed 10/12. - Antibiotics changed to Meropenem on 10/14 - Antibiotics changed to Fortaz/Levaquin combination on 10/15 - Wound does not appear to be healing well. Wound vac placed back on on 10/15 - Pt s/p RLE angiogram today with Dr. Brooks and was found to have proximal AT stenosis s/p successful SPORTS EQUIPMENT RACKER (3mm) and runoff to foot including pedal arch, multiple high grade PT stenoses s/p successful SPORTS EQUIPMENT RACKER and pulsatile blood flow in the wound with necrotic tissue debrided - Dressing changes per surgery/podiatry - Pain control PRN - Constipation precautions - Supportive care (2) DM (diabetes mellitus) ICD Codes: E11.9 - Type 2 diabetes mellitus without complications Status: Chronic Plan: - Hold home meds - NovoLog SSI - Cont. Levemir to 15 units BID and monitor blood glucose today to see if we need to continue titrating up - Accu checks (3) HTN (hypertension) ICD Codes: I10 - Essential (primary) hypertension Status: Chronic Plan: - Cont. home meds - Pts BP has been fairly elevated during the day but during the night seems to be better. Not clear if his BP elevation is pain related. - Will continue to monitor over the next day or so and if continues to be consistently elevated we may need to change his BP medications to obtain better control. - monitor for hyperkalemia (4) Hypertriglyceridemia ICD Codes: E78.1 - Hypertriglyceridemia Status: Chronic (5) Obesity ICD Codes: E66.9 - Obesity Status: Chronic Assessment and Plan Patient examined. Assessment and plan formulated with Megha Mcfarland PA-C. I agree with the above. Problem Qualifiers (1) Non-healing ulcer of foot with necrosis of muscle: Qualified Codes: L97.513 - Non-pressure chronic ulcer of other part of right foot with necrosis of muscle (2) DM (diabetes mellitus): Megha Mcfarland Oct 18, 2016 13:27 Willy Portillo DO Oct 20, 2016 00:43
--- NOTE | 2016-10-18 15:39 | PD.POD ---
Subjective Pain score: 6 Remarks SP Vascular intervention, doing well. Past Med/Surg/Social History Past Surgical History Gastrointestinal: DENIES HX OF: Colectomy, total Breast: DENIES HX OF: Mastectomy, bilateral, Mastectomy, left, Mastectomy, right Social History Smoking Status: Never Smoker Objective Vital Signs Vital Signs Date Time Temp Pulse Resp B/P (MAP) Pulse Ox O2 Delivery O2 Flow Rate FiO2 10/18/16 12:00 98.5 76 17 166/77 (106) 96 10/18/16 10:30 98.2 63 15 151/62 (91) 96 Nasal Cannula 2 10/18/16 10:15 65 15 169/78 (108) 95 Nasal Cannula 2 10/18/16 10:07 15 10/18/16 10:00 65 15 182/86 (118) 95 Nasal Cannula 2 10/18/16 09:45 63 14 171/78 (109) 99 Nasal Cannula 3 10/18/16 09:35 97.9 62 14 186/81 (116) 98 Nasal Cannula 3 10/18/16 04:00 98.3 63 20 118/68 (85) 97 10/18/16 00:00 97.8 66 20 161/73 (102) 97 10/17/16 20:00 97.4 77 18 182/85 (117) 97 10/17/16 16:00 97.8 66 16 179/86 (117) 98 Coded Allergies: No Known Allergies (Unverified , 10/08/16) Medications and IVs Administered Medications Medications (Trade) Dose Ordered Sig/Win Route PRN Reason Start Time Stop Time Status Last Admin Dose Admin Atorvastatin Calcium (Lipitor) 80 mg HS PO 10/08/16 21:00 10/17/16 22:06 Insulin Aspart (NovoLOG SUPPLEMENTAL SCALE) 1 ACHS SLIDING SCALE SQ 10/08/16 16:00 10/18/16 11:00 Ondansetron HCl (Zofran Inj) 4 mg Q6H PRN IV nausea 10/08/16 16:00 10/16/16 09:20 Hydrochlorothiazide (Hydrodiuril) 25 mg DAILY PO 10/09/16 09:00 10/18/16 11:12 Clonidine (Catapres) 0.1 mg Q4H PRN PO sbp > 170 10/09/16 10:30 10/17/16 11:55 Acetaminophen/ Hydrocodone Bitart ([place] 5-325 Mg) 2 tab Q4H PRN PO pain 6-10 10/10/16 10:30 10/18/16 11:11 Hydromorphone HCl (Dilaudid Pf Inj) 1 mg Q2H PRN IV PUSH breakthrough pain over 7 10/10/16 10:30 10/18/16 15:28 Lisinopril (Prinivil) 20 mg Q12HR PO 10/11/16 21:00 10/18/16 11:11 Sodium Chloride (NS Flush) See Protocol DAILY IV FLUSH 10/12/16 09:00 10/17/16 16:00 Heparin Sodium (Porcine) (Heparin Central Flush) See Protocol DAILY IV FLUSH 10/12/16 09:00 10/17/16 16:00 Sodium Chloride (NS Flush) See Protocol DAILY IV FLUSH 10/13/16 09:00 10/16/16 09:00 Heparin Sodium (Porcine) (Heparin Central Flush) See Protocol DAILY IV FLUSH 10/13/16 09:00 10/13/16 08:40 Docusate Sodium (Colace) 100 mg BID PO 10/13/16 21:00 10/18/16 11:11 Levofloxacin (Levaquin) 750 mg DAILY PO 10/15/16 18:00 10/18/16 11:11 Ceftazidime 2000 mg/Sodium Chloride 100 ml @ 200 mls/hr Q8H IV 10/15/16 21:00 10/18/16 13:03 Insulin Detemir (Levemir Inj) 15 units Q12HR SQ 10/16/16 21:00 10/18/16 09:00 Lactated Ringer's 1,000 ml @ 30 mls/hr Q24H PRN IV SEE LABEL COMMENTS 10/18/16 06:45 10/21/16 06:44 10/18/16 09:35 Other Results Laboratory Tests Test 10/17/16 07:45 White Blood Count 9.4 TH/MM3 Red Blood Count 4.05 MIL/MM3 Hemoglobin 12.1 GM/DL Hematocrit 36.5 % Mean Corpuscular Volume 90.2 FL Mean Corpuscular Hemoglobin 29.9 PG Mean Corpuscular Hemoglobin Concent 33.2 % Red Cell Distribution Width 13.9 % Platelet Count 233 TH/MM3 Mean Platelet Volume 9.3 FL Neutrophils (%) (Auto) 72.3 % Lymphocytes (%) (Auto) 18.8 % Monocytes (%) (Auto) 6.0 % Eosinophils (%) (Auto) 2.5 % Basophils (%) (Auto) 0.4 % Neutrophils # (Auto) 6.8 TH/MM3 Lymphocytes # (Auto) 1.8 TH/MM3 Monocytes # (Auto) 0.6 TH/MM3 Eosinophils # (Auto) 0.2 TH/MM3 Basophils # (Auto) 0.0 TH/MM3 CBC Comment DIFF FINAL Differential Comment Laboratory Tests Test 10/17/16 07:45 Blood Urea Nitrogen 23 MG/DL Creatinine 1.19 MG/DL Random Glucose 214 MG/DL Calcium Level 8.6 MG/DL Magnesium Level 2.0 MG/DL Sodium Level 135 MEQ/L Potassium Level 4.9 MEQ/L Chloride Level 101 MEQ/L Carbon Dioxide Level 27.8 MEQ/L Anion Gap 6 MEQ/L Estimat Glomerular Filtration Rate 63 ML/MIN Physical Exam Remarks Right lateral foot bleeding wound appears improved with more blood flow, full thickness with exposed deep fascia and likely periosteum of 4th metatarsal, no odor, no ischemia, toes 1 2 3 4 pink, sensation absent to ankle and distal Assessment & Plan A/P Right foot ulcer, PVD s/p revision R partial 5th ray amputation- Dr Grimes 10/09 s/p vascular stenting of PT and AT- Dr Brooks 10/[address] Brooks, improved flow at this point, wet to dry for now, may resume woundvac at a later date. Awaiting wound/ vascular checks over the next few days before DC. Shaggy Rose DPM Oct 18, 2016 15:39
[2016-10-18 16:00] VITALS: BP 142/65; PULSE 75; RESP 17; TEMP 98.1; O2SAT 94
[2016-10-18 21:26] VITALS: BP 146/81; PULSE 79; RESP 18; TEMP 98.2; O2SAT 95
[2016-10-18] MEDS: ATORVASTATIN 80 MG TAB PO SCH (23:13)
[2016-10-19 00:55] VITALS: BP 184/80; PULSE 73; RESP 16; TEMP 97.7; O2SAT 95
[2016-10-19] MEDS: HYDROmorphone HCL PF 1 MG/ML VIAL IV PUSH PRN ×6 (03:29→21:41)
[2016-10-19] MEDS: ACETAMINOPHEN/HYDROcodone 325 MG/5 MG TAB PO PRN ×3 (03:29→17:57)
[2016-10-19 04:17] LABS: BICARBONATE 28.8 MEQ/L (21.0-32.0); MAGNESIUM 2.4 MG/DL (1.5-2.5); POTASSIUM 4.2 MEQ/L (3.5-5.1)
[2016-10-19 04:51] VITALS: BP 163/71; PULSE 66; RESP 18; TEMP 98.5; O2SAT 95
[2016-10-19] MEDS: cefTAZidime INJ 2,000 MG in SODIUM CHLORIDE 0.9% INJ 100 ML IV SCH ×3 (05:46→21:42)
[2016-10-19] MEDS: INSULIN ASPART SUPPLEMENTAL SCALE SQ SCH ×4 (06:57→22:10)
[2016-10-19 08:29] VITALS: BP 154/71; PULSE 67; RESP 18; TEMP 98.1; O2SAT 97
[2016-10-19] MEDS: HYDROCHLOROTHIAZIDE 25 MG TAB PO SCH (09:00)
[2016-10-19] MEDS: SODIUM CHLORIDE 0.9% FLUSH 10 ML FLUSH IV FLUSH SCH ×2 (09:00)
[2016-10-19] MEDS: LISINOPRIL 20 MG TAB PO SCH ×2 (09:15→21:41)
[2016-10-19] MEDS: DOCUSATE SODIUM 100 MG CAP PO SCH ×2 (09:15→21:41)
[2016-10-19] MEDS: LEVOFLOXACIN 750 MG TAB PO SCH (09:15)
[2016-10-19] MEDS: INSULIN DETEMIR 100 UNITS/ML VIAL SQ SCH ×2 (09:26→22:09)
[2016-10-19 12:19] VITALS: BP 173/77; PULSE 63; RESP 18; TEMP 98.1; O2SAT 98
--- NOTE | 2016-10-19 13:03 | HHI.PR ---
Subjective Remarks Pt reports that he is still having a fair amount of pain in the right foot BS are still running high in the low to mid 300's Objective Vitals Vital Signs Date Time Temp Pulse Resp B/P (MAP) Pulse Ox O2 Delivery O2 Flow Rate FiO2 10/19/16 12:19 98.1 63 18 173/77 (109) 98 10/19/16 08:29 98.1 67 18 154/71 (98) 97 10/19/16 04:51 98.5 66 18 163/71 (101) 95 10/19/16 00:55 97.7 73 16 184/80 (114) 95 10/18/16 22:09 21 10/18/16 21:26 98.2 79 18 146/81 (102) 95 10/18/16 16:00 98.1 75 17 142/65 (90) 94 Result Diagram: 10/17/16 0745 10/19/16 0342 Other Results Laboratory Tests Test 10/19/16 03:42 Blood Urea Nitrogen 23 MG/DL Creatinine 1.12 MG/DL Random Glucose 276 MG/DL Calcium Level 8.3 MG/DL Magnesium Level 2.4 MG/DL Sodium Level 137 MEQ/L Potassium Level 4.2 MEQ/L Chloride Level 101 MEQ/L Carbon Dioxide Level 28.8 MEQ/L Anion Gap 7 MEQ/L Estimat Glomerular Filtration Rate 68 ML/MIN Imaging Last Impressions Chest X-Ray 10/12/16 0000 Signed Impressions: Service Date/Time: Wednesday, October 12, 2016 11:05 - CONCLUSION: Right upper extremity PICC distal tip in the right atrium. Sampson Shaw MD Foot MRI 10/08/16 0000 Signed Impressions: Service Date/Time: Saturday, October 08, 2016 16:39 - CONCLUSION: 1. Amputation of the majority of the fifth metatarsal and fifth toe. 2. Osteomyelitis of the remaining proximal and mid fifth metatarsal. Levy Sebastian MD Objective Remarks General: NAD, AAOx3 Chest: CTA Cardiac: Regular Abd: +BS, soft ND/NT Ext: Left BKA, right foot bandages are c/d/i A/P Problem List: (1) Non-healing ulcer of foot with necrosis of muscle ICD Codes: L97.503 - Non-pressure chronic ulcer of other part of unspecified foot with necrosis of muscle Status: Acute Plan: - Pt is a 56 y/o WM with type 2 DM, PAD s/p left BKA, who was previously hospitalized in August 2016 for a nonhealing wound to the right lateral foot. Podiatry had swabbed the area and apparently grew Enterobacter. - Pt had an MRI foot (09/12) which noted diffuse cellulitis involving the right fifth toe as well as some edema and enhancement of the head of the right fifth metatarsal as well as the right fifth phalanges raising the possibility of osteomyelitis. He was seen by podiatry and Vascular surgery and had an angiogram on 09/14 with noted good flow in the RLE. Pt underwent amputation of right 5th toe and partial ray amputation with necrotic head on 09/[address] Grimes. No growth came of those surgical cx's - He followed up with Dr. Rose as an outpt and states that he was treated with another round of antibiotics, he believes was Clindamycin for 7 days which he completed the day prior to admission. - Last week he had a debridement with Dr. Rose of the right lateral foot wound but this has not been healing well. Pt was sent to see Dr. Redman for wound care and pt was sent to the ED for admission for podiatry consultation for debridement and possible wound vac placement. - MRI foot (10/08) --> Amputation of the majority of the fifth metatarsal and fifth toe. Osteomyelitis of the remaining proximal and mid fifth metatarsal. - Pt was started on antibiotics with Zosyn. - On 10/09 he underwent resection of the residual 5th metatarsal, and apparently there was non necrotic hard bone found. - Podiatry felt IV abx were needed and wound vac. - ID consulted to get opinion on the usp iv abx. - Surgical cx's (10/09) --> Achromobacter Xyl/[place]..light growth gnr - PICC placed 10/12. - Antibiotics changed to Meropenem on 10/14 - Antibiotics changed to Fortaz/Levaquin combination on 10/15 - Wound does not appear to be healing well. Wound vac placed back on on 10/15 - Pt s/p RLE angiogram today with Dr. Brooks and was found to have proximal AT stenosis s/p successful PHYSICIAN RELATIONS MANAGER (3mm) and runoff to foot including pedal arch, multiple high grade PT stenoses s/p successful PHYSICIAN RELATIONS MANAGER and pulsatile blood flow in the wound with necrotic tissue debrided - Dressing changes per surgery/podiatry, currently recommended for wet to dry dressing changes for now, they will decide if there is need to resume wound vac at a later date. Awaiting wound/ vascular checks over the next few days before DC. - Pain control PRN - Constipation precautions - Supportive care (2) DM (diabetes mellitus) ICD Codes: E11.9 - Type 2 diabetes mellitus without complications Status: Chronic Plan: - Hold home meds - NovoLog SSI - Titrate up the Levemir to 22 units BID and monitor blood glucose closely - Resume his home dose of Metformin and Glyburide - Accu checks (3) HTN (hypertension) ICD Codes: I10 - Essential (primary) hypertension Status: Chronic Plan: - Cont. home meds - Pts BP has been fairly elevated during the day but during the night seems to be better. Not clear if his BP elevation is pain related. - Will continue to monitor over the next day or so and if continues to be consistently elevated we may need to change his BP medications to obtain better control. - monitor for hyperkalemia (4) Hypertriglyceridemia ICD Codes: E78.1 - Hypertriglyceridemia Status: Chronic (5) Obesity ICD Codes: E66.9 - Obesity Status: Chronic Assessment and Plan Patient examined. Assessment and plan formulated with Megha Mcfarland PA-C. I agree with the above. - Case d/w Dr. Brooks (10/19/16) - wet-to-dry dressings. Surgically cleared for discharge - Pt resumed on metformin and glyburide - levemir increased to 22 units bid - if blood sugars improve, then will d/c to home with [facility] 10/20/16 Problem Qualifiers (1) Non-healing ulcer of foot with necrosis of muscle: Qualified Codes: L97.513 - Non-pressure chronic ulcer of other part of right foot with necrosis of muscle (2) DM (diabetes mellitus): Megha Mcfarland Oct 19, 2016 13:03 Willy Portillo DO Oct 20, 2016 00:45
--- NOTE | 2016-10-19 16:02 | PD.VS.PN ---
Subjective POD #: 1 Procedure(s): R AT and PT angioplasty along with foot debridement Subjective/Hospital Course in good spirits and doesn't c/o pain R foot dressed and he relates that there was bleeding from the wound yesterday Objective Vitals/I&O Date Time Temp Pulse Resp B/P (MAP) Pulse Ox O2 Delivery O2 Flow Rate FiO2 10/19/16 12:19 98.1 63 18 173/77 (109) 98 10/19/16 08:29 98.1 67 18 154/71 (98) 97 10/19/16 04:51 98.5 66 18 163/71 (101) 95 10/19/16 00:55 97.7 73 16 184/80 (114) 95 10/18/16 22:09 21 10/18/16 21:26 98.2 79 18 146/81 (102) 95 10/18/16 16:00 98.1 75 17 142/65 (90) 94 10/19/16 10/19/16 10/19/16 07:00 15:00 23:00 Output Total 2200 ml Balance -2200 ml Exam: R foot warm; lateral foot wound with granulation tissue at base. 2 areas of mild necrosis distal and proximal but no bigger than 4mm no exudate Laboratory Laboratory Tests Test 10/19/16 03:42 Blood Urea Nitrogen 23 Creatinine 1.12 Random Glucose 276 Calcium Level 8.3 Magnesium Level 2.4 Sodium Level 137 Potassium Level 4.2 Chloride Level 101 Carbon Dioxide Level 28.8 Anion Gap 7 Estimat Glomerular Filtration Rate 68 Date/Time Source Procedure Growth Status 10/08/16 13:05 Blood Peripheral Aerobic Blood Culture - Final Bacillus Species Not Anthracis Complete 10/08/16 13:05 Blood Peripheral Anaerobic Blood Culture - Final NO GROWTH IN 5 DAYS Complete 10/11/16 19:00 Other Acid Fast Stain - Final NO ACID FAST BACILLI SEEN Resulted 10/11/16 19:00 Other Mycobacterial Culture - Preliminary NO GROWTH IN 1 WEEK Resulted Assessment and Plan Assessment: (1) Non-healing ulcer of foot with necrosis of muscle Status: Acute (2) Peripheral vascular disease Status: Chronic (3) Diabetes type 2, uncontrolled Status: Chronic (4) HTN (hypertension) Status: Chronic (5) DM (diabetes mellitus) Status: Chronic (6) Hypercholesteremia Status: Chronic Plan Wound looks good; wound continue w to d and ok to f/u as outpatient I will coordinate with Dr. Rose so as not to unnecessarily burden patient Discharge Planning Problem Qualifiers (1) Non-healing ulcer of foot with necrosis of muscle: Qualified Codes: L97.513 - Non-pressure chronic ulcer of other part of right foot with necrosis of muscle (2) DM (diabetes mellitus): Otis Brooks MD Oct 19, 2016 16:02
[2016-10-19 16:10] VITALS: BP 174/80; PULSE 66; RESP 18; TEMP 98; O2SAT 99
[2016-10-19] MEDS: metFORMIN HCL 500 MG TAB PO SCH (17:57)
[2016-10-19] MEDS: cloNIDine HCL 0.1 MG TAB PO PRN (19:05)
[2016-10-19 21:14] VITALS: BP 158/67; PULSE 75; RESP 19; TEMP 97.2; O2SAT 98
[2016-10-19] MEDS: ATORVASTATIN 80 MG TAB PO SCH (21:41)
[2016-10-19] MEDS: glyBURIDE 5 MG TAB PO SCH (22:19)
[2016-10-20] VITALS (7 sets, daily range): BP systolic 113–175; BP diastolic 65–79; PULSE 62–73; RESP 17–20; TEMP 97.5–98.3; O2SAT 95–99
[2016-10-20] MEDS: ACETAMINOPHEN/HYDROcodone 325 MG/5 MG TAB PO PRN ×4 (05:02→20:51)
[2016-10-20] MEDS: cefTAZidime INJ 2,000 MG in SODIUM CHLORIDE 0.9% INJ 100 ML IV SCH ×3 (05:05→21:14)
[2016-10-20] MEDS: INSULIN ASPART SUPPLEMENTAL SCALE SQ SCH ×4 (06:39→21:13)
[2016-10-20] MEDS: glyBURIDE 5 MG TAB PO SCH ×2 (07:00→16:00)
[2016-10-20] MEDS: SODIUM CHLORIDE 0.9% FLUSH 10 ML FLUSH IV FLUSH SCH ×2 (09:00)
[2016-10-20] MEDS: INSULIN DETEMIR 100 UNITS/ML VIAL SQ SCH ×2 (09:00→21:12)
--- NOTE | 2016-10-20 09:15 | PD.VS.PN ---
Subjective POD #: 2 Procedure(s): R AT and PT angioplasty along with foot debridement Subjective/Hospital Course no complaints today no pain no chills Objective Vitals/I&O Date Time Temp Pulse Resp B/P (MAP) Pulse Ox O2 Delivery O2 Flow Rate FiO2 10/20/16 08:00 97.6 63 17 165/79 (107) 98 10/20/16 06:09 97.5 66 20 173/70 (104) 97 10/20/16 00:00 97.5 62 20 150/65 (93) 97 10/19/16 21:14 97.2 75 19 158/67 (97) 98 10/19/16 18:09 21 10/19/16 16:10 98.0 66 18 174/80 (111) 99 10/19/16 12:19 98.1 63 18 173/77 (109) 98 10/20/16 10/20/16 10/20/16 06:59 14:59 22:59 Intake Total 240 ml Balance 240 ml Exam: R foot with excellent granulation tissue at base, only 2 areas of fibrinous exudate, minor no wound erythema Laboratory Date/Time Source Procedure Growth Status 10/08/16 13:05 Blood Peripheral Aerobic Blood Culture - Final Bacillus Species Not Anthracis Complete 10/08/16 13:05 Blood Peripheral Anaerobic Blood Culture - Final NO GROWTH IN 5 DAYS Complete 10/11/16 19:00 Other Acid Fast Stain - Final NO ACID FAST BACILLI SEEN Resulted 10/11/16 19:00 Other Mycobacterial Culture - Preliminary NO GROWTH IN 1 WEEK Resulted Assessment and Plan Assessment: (1) Non-healing ulcer of foot with necrosis of muscle Status: Acute (2) Peripheral vascular disease Status: Chronic (3) Diabetes type 2, uncontrolled Status: Chronic (4) HTN (hypertension) Status: Chronic (5) DM (diabetes mellitus) Status: Chronic (6) Hypercholesteremia Status: Chronic Plan Wound looks good; wound continue w to d and ok to f/u as outpatient will use collagenase with wound care I will coordinate with Dr. Rose so as not to unnecessarily burden patient Discharge Planning Problem Qualifiers (1) Non-healing ulcer of foot with necrosis of muscle: Qualified Codes: L97.513 - Non-pressure chronic ulcer of other part of right foot with necrosis of muscle (2) DM (diabetes mellitus): Otis Brooks MD Oct 20, 2016 09:15
[2016-10-20] MEDS: LISINOPRIL 20 MG TAB PO SCH ×2 (09:42→21:11)
[2016-10-20] MEDS: HYDROCHLOROTHIAZIDE 25 MG TAB PO SCH (09:42)
[2016-10-20] MEDS: DOCUSATE SODIUM 100 MG CAP PO SCH ×2 (09:42→21:14)
[2016-10-20] MEDS: metFORMIN HCL 500 MG TAB PO SCH ×2 (09:43→18:00)
[2016-10-20] MEDS: LEVOFLOXACIN 750 MG TAB PO SCH (09:43)
--- NOTE | 2016-10-20 14:53 | HHI.FF ---
Face to Face Verification Diagnosis: (1) Right foot ulcer (2) Diabetes type 2, uncontrolled (3) Essential hypertension (4) HTN (hypertension) Home Health Nursing Order: Medical education Signs/symptoms of disease process Diabetic education Medication education-adverse effect Wound care and dressing changes Nursing assessment with vital signs Instructions: wet to dry dressing of right foot daily with application of collagenase I have seen patient Abhinav Coyle on 10/20/16. My clinical findings support the need for the requested home health care services because: Ltd mobility - disease progression Deconditioned w/ increased weakness Med compliance is questionable Limited ability to care for self Need for psychosocial assistance I certify that my clinical findings support that this patient is homebound because: Impaired cognitive ability/safety Unsteady gait/balance Unsafe to leave home unassisted Need for psychosocial assistance Unable to use public transportation Willy Portillo DO Oct 20, 2016 14:53
[2016-10-20] MEDS ORDERED: LEVA750T9 PO (15:06)
[2016-10-20] MEDS ORDERED: DOCU1CAP39 PO (15:06)
[2016-10-20] MEDS ORDERED: NORC5TAB PO (15:06)
--- NOTE | 2016-10-20 15:24 | HHI.DS ---
Discharge Summary Admission Date Oct 08, 2016 at 19:11 Discharge Date: Oct 20, 2016 Admitting Diagnosis Right foot nonhealing wound (1) Non-healing ulcer of foot with necrosis of muscle Diagnosis: Principal ICD Codes: L97.503 - Non-pressure chronic ulcer of other part of unspecified foot with necrosis of muscle Status: Acute (2) DM (diabetes mellitus) Diagnosis: Secondary ICD Codes: E11.9 - Type 2 diabetes mellitus without complications Status: Chronic (3) HTN (hypertension) Diagnosis: Secondary ICD Codes: I10 - Essential (primary) hypertension Status: Chronic (4) Hypertriglyceridemia Diagnosis: Secondary ICD Codes: E78.1 - Hypertriglyceridemia Status: Chronic (5) Obesity Diagnosis: Secondary ICD Codes: E66.9 - Obesity Status: Chronic Consultants Dr. Otis Brooks, Vascular Surgery Dr. Shaggy Rose, Podiatry Dr. Evelyn Ayala, Infectious Disease Brief History Mr. Coyle is a pleasant 56 y/o WM with type 2 DM, PAD s/p left BKA, who was previously hospitalized in August 2016 for a nonhealing wound to the right lateral foot. Pt had an MRI foot (09/12) which noted diffuse cellulitis involving the right fifth toe as well as some edema and enhancement of the head of the right fifth metatarsal as well as the right fifth phalanges raising the possibility of osteomyelitis. He was seen by podiatry and Vascular surgery during that admission. Pt had an angiogram on 09/14 with noted good flow in the RLE. Pt underwent amputation of right 5th toe and partial ray amputation with necrotic head on 09/[address] Grimes. Pt was discharged on Cipro. He followed up with Dr. Rose as an outpt and states that he was treated with another round of antibiotics, he believes was Clindamycin for 7 days which he just completed yesterday. Last week he had a debridement with Dr. Rose of the right lateral foot wound but this has not been healing well. Pt was sent to see Dr. Osvaldo Redman today for wound care and pt was sent to the ED for admission for podiatry consultation for debridement and possible wound vac placement. Pt reports that he is having some pain in the right foot. Denies any fevers or chills. Blood cultures were drawn in the ED. CBC/BMP: 10/17/16 0745 10/19/16 0342 Significant Findings Laboratory Tests Test 10/19/16 03:42 Blood Urea Nitrogen 23 MG/DL (7-18) Random Glucose 276 MG/DL (74-106) Calcium Level 8.3 MG/DL (8.5-10.1) Estimat Glomerular Filtration Rate 68 ML/MIN (>89) Imaging Last Impressions Chest X-Ray 10/12/16 0000 Signed Impressions: Service Date/Time: Wednesday, October 12, 2016 11:05 - CONCLUSION: Right upper extremity PICC distal tip in the right atrium. Sampson Shaw MD Foot MRI 10/08/16 0000 Signed Impressions: Service Date/Time: Saturday, October 08, 2016 16:39 - CONCLUSION: 1. Amputation of the majority of the fifth metatarsal and fifth toe. 2. Osteomyelitis of the remaining proximal and mid fifth metatarsal. Levy Sebastian MD PE at Discharge General: NAD, AAOx3 Chest: CTA Cardiac: Regular Abd: +BS, soft ND/NT Ext: Left BKA, right foot bandages are c/d/i Hospital Course (1) Non-healing ulcer of foot with necrosis of muscle ICD Codes: L97.503 - Non-pressure chronic ulcer of other part of unspecified foot with necrosis of muscle Status: Acute Plan: - Pt is a 56 y/o WM with type 2 DM, PAD s/p left BKA, who was previously hospitalized in August 2016 for a nonhealing wound to the right lateral foot. Podiatry had swabbed the area and apparently grew Enterobacter. - Pt had an MRI foot (09/12) which noted diffuse cellulitis involving the right fifth toe as well as some edema and enhancement of the head of the right fifth metatarsal as well as the right fifth phalanges raising the possibility of osteomyelitis. He was seen by podiatry and Vascular surgery and had an angiogram on 09/14 with noted good flow in the RLE. Pt underwent amputation of right 5th toe and partial ray amputation with necrotic head on 09/[address] Grimes. No growth came of those surgical cx's - He followed up with Dr. Rose as an outpt and states that he was treated with another round of antibiotics, he believes was Clindamycin for 7 days which he completed the day prior to admission. - Last week he had a debridement with Dr. Rose of the right lateral foot wound but this has not been healing well. Pt was sent to see Dr. Redman for wound care and pt was sent to the ED for admission for podiatry consultation for debridement and possible wound vac placement. - MRI foot (10/08) --> Amputation of the majority of the fifth metatarsal and fifth toe. Osteomyelitis of the remaining proximal and mid fifth metatarsal. - Pt was started on antibiotics with Zosyn. - On 10/09 he underwent resection of the residual 5th metatarsal, and apparently there was non necrotic hard bone found. - Podiatry felt IV abx were needed and wound vac. 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 - Surgical cx's (10/09) --> Achromobacter Xyl/[place]..light growth gnr - PICC placed 10/12. - Antibiotics changed to Meropenem on 10/14 - Antibiotics changed to Fortaz/Levaquin combination on 10/15 which will be continued thru 11/19/16 - Wound did not appear to be healing well. Wound vac placed back on on 10/15 - Pt s/p RLE angiogram today with Dr. Brooks and was found to have proximal AT stenosis s/p successful CONTRACT ADMINISTRATION MANAGER (3mm) and runoff to foot including pedal arch, multiple high grade PT stenoses s/p successful CONTRACT ADMINISTRATION MANAGER and pulsatile blood flow in the wound with necrotic tissue debrided - Dressing changes per surgery/podiatry, currently recommended for wet to dry dressing with santyl - norco prn - colace 100mg BID - f/u with Dr. Brooks in 1 week - f/u with Dr. Rose in 3-5 days - f/u with ID, Dr. Steff Johnston in 3 weeks - [facility] for wound care - see discharge orders (2) DM (diabetes mellitus) ICD Codes: E11.9 - Type 2 diabetes mellitus without complications Status: Chronic Plan: - resume home DM regimen upon discharge (3) HTN (hypertension) ICD Codes: I10 - Essential (primary) hypertension Status: Chronic Plan: - Cont. home meds (4) Hypertriglyceridemia ICD Codes: E78.1 - Hypertriglyceridemia Status: Chronic (5) Obesity Pt Condition on Discharge: Stable Discharge Disposition: Disch w/ Home Health Serv Discharge Instructions DIET: Follow Instructions for: Heart Healthy Diet, Diabetic Diet Activities you can perform: Weight Bearing as Ernie Other Activity Instructions: See surgery orders for activity level Follow up Referrals: Infectious Disease - [address] Steff Johnston Podiatry - 3-5 Days with Shaggy Rose DPM Vascular Surgery @ Vascular Surgery with Otis Brooks MD New Medications: Docusate Sodium (Dok) 100 Mg Cap 100 MG PO BID for narcotics, #60 CAP 0 Refills Levofloxacin (Levaquin) 750 Mg Tablet 750 MG PO DAILY for diabetic foot ulcer, #30 MG 0 Refills Changed Medications: Hydrocodone-Acetaminophen ([place]) 5-325 mg Tab 1 TAB PO Q6HR PRN for PAIN, #20 TAB 0 Refills (Changed from: Q4HR; 30) Continued Medications: Albiglutide 4-Pack Inj (Tanzeum 4-Pack Inj) 50 Mg Pfpen 50 MG SQ Q7D, #4 PEN Atorvastatin (Atorvastatin) 80 Mg Tab 80 MG PO HS for Cholesterol Management, #30 TAB 0 Refills Cholecalciferol (Vitamin D) 2,000 Unit Tab 2000 UNITS PO DAILY Empagliflozin (Jardiance) 25 Mg Tab 25 MG PO DAILY for Blood Sugar Management, #30 TAB 0 Refills Fish Oil-Cholecalciferol (Fish Oil + D3) 1,200-1,000 Mg-Unit Cap 1 CAP PO DAILY for Nutritional Supplement, #30 CAP 0 Refills Glyburide (Glyburide) 5 Mg Tab 5 MG PO BID for Blood Sugar Management, #60 TAB 0 Refills Take with meals at the same time each day Hydrochlorothiazide (Hydrochlorothiazide) 25 Mg Tab 25 MG PO DAILY, #30 TAB Insulin Aspart Inj (Novolog Inj) 1,000 Unit/10 Ml Vial 0 SQ DIRECTED for Blood Sugar Management, #10 ML 0 Refills Sliding Scale as directed. Insulin Degludec Inj (Tresiba Flextouch Pen Inj) 300 unit/3 ML Pen 60 UNITS SQ DAILY for Blood Sugar Management, #15 ML 0 Refills Lisinopril (Lisinopril) 20 Mg Tab 20 MG PO BID, #30 TAB 0 Refills Metformin (Metformin) 1,000 Mg Tab 1000 MG PO BIDPC for Blood Sugar Management, #60 TAB 0 Refills With meals Willy Portillo DO Oct 20, 2016 15:24
[2016-10-20] MEDS: COLLAGENASE OINT 30 GM TUBE TOPICAL SCH (15:30)
[2016-10-20] MEDS: ATORVASTATIN 80 MG TAB PO SCH (21:10)
[2016-10-20] MEDS: HYDROmorphone HCL PF 1 MG/ML VIAL IV PUSH PRN (21:26)
[2016-10-21] MEDS: cloNIDine HCL 0.1 MG TAB PO PRN (01:34)
[2016-10-21] MEDS: ACETAMINOPHEN/HYDROcodone 325 MG/5 MG TAB PO PRN ×2 (01:34→08:19)
[2016-10-21 01:39] VITALS: BP 180/84; PULSE 68; RESP 19; TEMP 97.8; O2SAT 98
[2016-10-21 04:59] VITALS: BP 178/81; PULSE 69; RESP 16; TEMP 98; O2SAT 99
[2016-10-21] MEDS: cefTAZidime INJ 2,000 MG in SODIUM CHLORIDE 0.9% INJ 100 ML IV SCH (05:03)
[2016-10-21] MEDS: INSULIN ASPART SUPPLEMENTAL SCALE SQ SCH (06:16)
[2016-10-21] MEDS: HYDROmorphone HCL PF 1 MG/ML VIAL IV PUSH PRN (06:23)
[2016-10-21] MEDS: glyBURIDE 5 MG TAB PO SCH (07:00)
[2016-10-21] MEDS: HYDROCHLOROTHIAZIDE 25 MG TAB PO SCH (08:02)
[2016-10-21] MEDS: LEVOFLOXACIN 750 MG TAB PO SCH (08:02)
[2016-10-21] MEDS: metFORMIN HCL 500 MG TAB PO SCH (08:02)
[2016-10-21] MEDS: LISINOPRIL 20 MG TAB PO SCH (08:02)
[2016-10-21] MEDS: INSULIN DETEMIR 100 UNITS/ML VIAL SQ SCH (08:08)
[2016-10-21] MEDS: COLLAGENASE OINT 30 GM TUBE TOPICAL SCH (09:00)
[2016-10-21] MEDS: DOCUSATE SODIUM 100 MG CAP PO SCH (09:00)
[2016-10-21] MEDS ORDERED: COLLAGENASE OINT 30 GM TUBE TOPICAL SCH (09:00)
[2016-10-21] MEDS: SODIUM CHLORIDE 0.9% FLUSH 10 ML FLUSH IV FLUSH SCH ×2 (09:00)
--- NOTE | 2016-10-21 11:20 | MP ---
cc: OTIS BROOKS MD DATE OF SURGERY: 10/18/2016 PREOPERATIVE DIAGNOSIS Right lower extremity tissue loss, peripheral arterial occlusive disease and diabetes. POSTOPERATIVE DIAGNOSIS Right lower extremity tissue loss, peripheral arterial occlusive disease and diabetes. PROCEDURE 1. Right lower extremity angiogram. 2. Angioplasty of anterior tibial artery with a 3-mm balloon. 3. Angioplasty of posterior tibial artery with a 2.5 to 2-mm tapered balloon. 4. Left common femoral artery Angio-Seal. 5. Debridement of right foot wound. ATTENDING SURGEON Dr. Otis Brooks. ANESTHESIA General. INDICATIONS Mr. Coyle is a 56-year-old gentleman with diabetes and a left below-knee amputation. He has a right lateral foot wound that is not healing. Despite having palpable dorsalis pedis pulse there was some concern that he did not have enough foot perfusion. He is taken to the operating room for endovascular evaluation and potential treatment. DESCRIPTION OF PROCEDURE Informed consent was obtained from the patient. He was taken to the operating room and placed supine on the operating table and appropriate timeout was taken to ensure the patient's identity, the operative site and planned procedure. He was already on systemic and therapeutic antibiotics and these were redosed before we started the procedure and these will be continued postoperatively for ongoing therapy of his diabetic foot infection. Everyone in the room agreed with timeout and we proceeded. His right foot and bilateral groins were prepped and draped. A 21 gauge micropuncture needle was used to access the left common femoral artery. This was exchanged using Seldinger technique for left micropuncture sheath through which a 0.035 Glidewire was introduced and the micropuncture sheath was exchanged for a 5-Irish sheath. A VCF catheter was advanced over the wire into the sheath and using the VCF catheter and Glidewire we were able to navigate down to the right common femoral artery. A right lower extremity arteriogram was obtained. The patient was systemically heparinized with 5000 units of intravenous heparin. A 0.035 Storq wire was introduced down to the popliteal artery and the VCF catheter and 5-Irish sheath were removed. A 6-Irish 90 cm sheath was then introduced and a CXI catheter was placed over the Storq wire. The Storq was exchanged for a glide and this was used to navigate into the anterior tibial artery. The CXI catheter was advanced over the Glidewire and the Glidewire was removed and a PIPE COVERER HELPER wire was then placed down to the distal anterior tibial artery, traversing the anterior tibial artery stenosis. The CXI catheter was removed and the anterior tibial artery stenosis was angioplastied with a 3-mm balloon. Completion angiogram showed excellent result without any recoil or extravasation. The wire and catheter were pulled back in the popliteal artery and then redirected down the posterior tibial artery. The posterior tibial artery was recanalized with a 0.014 PIPE COVERER HELPER wire and a 2.5 to 2-mm tapered balloon that was 210 mm long was then used to angioplasty the entire posterior tibial artery. The completion angiogram showed excellent result without any recoil or extravasation or dissection. The completion angiogram showed excellent filling of the pedal arch and in fact even venous phase filling at the plantar surface of the foot. Wires, catheters and sheaths were all removed and the groin was closed with AngioSeal. The foot was then debrided. Excisional debridement of approximately 10 cm2 was performed on the lateral aspect of the foot including using a #10 blade to debride skin, subcutaneous tissue and necrotic tissue. The wound was then cleansed and wrapped in Kerlix. The patient was then awoken from anesthesia and transported to the recovery room in stable condition. I was present and scrubbed and performed the entire procedure. MD CARLA Aguayo/SHARIFA /5:22 AM /11:01 AM
== END 2016-10-21 10:58 | disposition home health service (06) | DRG 464 ==
LOC: NEPE 11:53 → NEDA 19:11 → N05B 22:11
PROVIDERS: ADMIT Hospitalist; ATTEND Hospitalist
PROC: 0QTN0ZZ Resection of Right Metatarsal, Open Approach (ICD-10-PCS; 2016-10-09)
PROC: 0JBQ0ZZ Excision of Right Foot Subcutaneous Tissue and Fascia, Open Approach (ICD-10-PCS; principal; 2016-10-09 18:09)
PROC: 02H633Z Insertion of Infusion Device into Right Atrium, Percutaneous Approach (ICD-10-PCS; 2016-10-12)
PROC: 047P3ZZ Dilation of Right Anterior Tibial Artery, Percutaneous Approach (ICD-10-PCS; 2016-10-18)
PROC: 047R3ZZ Dilation of Right Posterior Tibial Artery, Percutaneous Approach (ICD-10-PCS; 2016-10-18)
PROC: B41F1ZZ Fluoroscopy of Right Lower Extremity Arteries using Low Osmolar Contrast (ICD-10-PCS; 2016-10-18)
DX: T87.43 Infection of amputation stump, right lower extremity (principal); M86.171 Other acute osteomyelitis, right ankle and foot; E11.621 Type 2 diabetes mellitus with foot ulcer; E11.51 Type 2 diabetes mellitus with diabetic peripheral angiopathy without gangrene; E11.65 Type 2 diabetes mellitus with hyperglycemia; E11.69 Type 2 diabetes mellitus with other specified complication; E87.5 Hyperkalemia; I10 Essential (primary) hypertension; L97.513 Non-pressure chronic ulcer of other part of right foot with necrosis of muscle; I25.10 Atherosclerotic heart disease of native coronary artery without angina pectoris; E86.0 Dehydration; E78.1 Pure hyperglyceridemia; E66.9 Obesity, unspecified; T87.81 Dehiscence of amputation stump; E78.00 Pure hypercholesterolemia, unspecified; K59.00 Constipation, unspecified; B96.89 Other specified bacterial agents as the cause of diseases classified elsewhere; Z16.19 Resistance to other specified beta lactam antibiotics; Z68.35 Body mass index [BMI] 35.0-35.9, adult; Z79.4 Long term (current) use of insulin; Z89.421 Acquired absence of other right toe(s); Z89.512 Acquired absence of left leg below knee
CPT/HCPCS: 36569; 71010; 73720; 75710; 76937; 80048; 80053; 82948; 83735; 85025; 85610; 85652; 85730; 86140; 87015; 87040; 87070; 87077; 87102; 87116; 87186; 87205; 87206; 88307; 88311; 96361; 96365; 96372; 96375; 96376; A9579; C1725; C1769; J0131; J0713; J1170; J1580; J1642; J1644; J1650; J1815; J2185; J2250; J2270; J2405; J2543; J2710; J3010; J7030; J7042; J7120; Q9967